=== PATIENT | male | born 1935 | race Caucasian/White ===

== ENCOUNTER 2019-07-08 01:46 | Inpatient (IN) | payer BC, MEDICARE ==
[~2019-07-08] VITALS: Ht 170.2 cm; Wt 59.0 kg
[2019-07-08] MEDS ORDERED: DRON2.5C PO (02:04)
[2019-07-08] MEDS ORDERED: ONDA8TAB6 PO (02:04)
[2019-07-08] MEDS ORDERED: PANT40TA2 PO (02:04)
[2019-07-08] MEDS ORDERED: AMIO100T4 PO (02:04)
[2019-07-08] MEDS ORDERED: TAMS-3 PO (02:04)
[2019-07-08] MEDS ORDERED: SUCR1TAB31 PO (02:04)
[2019-07-08] MEDS ORDERED: [UNRECOGNIZED DRUG - CODE] PO (02:04)
[2019-07-08] MEDS ORDERED: CARV6.25 PO (02:04)
[2019-07-08] MEDS ORDERED: ASCO500C16 PO (02:04)
[2019-07-08] MEDS ORDERED: LEVE500T9 PO (02:04)
[2019-07-08] MEDS ORDERED: ROSU5TAB PO (02:04)
[2019-07-08] MEDS ORDERED: DEXA1TAB2 PO (02:04)
[2019-07-08 02:19] LABS: BASOPHILS % (AUTO) 0.7 % (0.0-2.0); EOSINOPHILS # (AUTO) 0.3 K/uL (0.0-0.7); EOSINOPHILS % (AUTO) 4.5 % (0.0-7.0); HEMATOCRIT 36.6 % (36.7-47.1); HEMOGLOBIN 12.3 g/dL (12.5-16.3); LYMPHOCYTES # (AUTO) 0.5 K/uL (20.0-40.0); LYMPHOCYTES % (AUTO) 7.1 % (20.5-51.5); MEAN CORPUSCULAR HEMOGLOBIN 34.2 uug (23.8-33.4); MEAN CORPUSCULAR HGB CONC 34 g/dL (32.5-36.3); MEAN CORPUSCULAR VOLUME 101.4 fL (73.0-96.2); MONOCYTES # (AUTO) 0.7 K/uL (2.0-10.0); MONOCYTES % (AUTO) 9.8 % (0.0-11.0); NEUTROPHILS # (AUTO) 5.2 K/uL (1.8-8.9); NEUTROPHILS % (AUTO) 77.9 % (38.5-71.5); PLATELET COUNT (AUTO) 139 K/uL (152-348); RED BLOOD CELL COUNT(AUTO) 3.61 MIL/uL (4.06-5.63); WHITE BLOOD COUNT (AUTO) 6.7 K/uL (3.6-10.2)
[2019-07-08 02:28] LABS: CREATININE 1.1 mg/dL (0.6-1.3); POTASSIUM 3.5 mmol/L (3.5-5.1)
[2019-07-08 02:39] LABS: BILIRUBIN,DIRECT 0.2 mg/dL (0.0-0.2); BILIRUBIN,TOTAL 0.8 mg/dL (0.2-1.0); TOTAL PROTEIN, SERUM 5.2 g/dL (6.4-8.2)
[2019-07-08] MEDS ORDERED: IV NS 1000 ML 1,000 ML IV PRN (03:07)
[2019-07-08] MEDS ORDERED: ACETAMINOPHEN 325 MG TABLET PO PRN (03:15)
[2019-07-08] MEDS ORDERED: Z GUARD REMEDY PASTE 57 GM TUBE TOP PRN (03:15)
[2019-07-08] MEDS ORDERED: MAGNESIUM HYDROXIDE 30 ML LIQUID UDC PO PRN (03:15)
[2019-07-08] MEDS ORDERED: ONDANSETRON 4 MG/2 ML VIAL IV PRN (03:15)
[2019-07-08] MEDS ORDERED: HYDROCODONE/APAP 5-325MG TABLET PO PRN (03:15)
[2019-07-08] MEDS ORDERED: FUROSEMIDE 40 MG/4 ML VIAL IV ONE (03:45)
[2019-07-08] MEDS ORDERED: FUROSEMIDE 40 MG/4 ML VIAL ONE (04:10)
[2019-07-08] MEDS ORDERED: LEVOFLOXACIN 500 MG/D5W 100ML PIGGYBACK IV STA (04:18)
[2019-07-08] MEDS ORDERED: LEVOFLOXACIN 500 MG/D5W 100 ML ONE (04:21)
[2019-07-08 06:31] VITALS: BP 103/53
[2019-07-08] MEDS ORDERED: [UNRECOGNIZED DRUG - OTHER] PO SCH (09:00)
[2019-07-08] MEDS ORDERED: CARVEDILOL 6.25 MG TABLET PO SCH (09:00)
[2019-07-08] MEDS: CARVEDILOL 6.25 MG TABLET PO SCH ×2 (09:21→18:00)
[2019-07-08] MEDS: PANTOPRAZOLE SODIUM 40 MG TABLET.DR PO SCH (09:21)
[2019-07-08] MEDS: AMIODARONE HCL 200 MG TABLET PO SCH (09:22)
[2019-07-08] MEDS: DRONABINOL 2.5 MG CAPSULE PO SCH ×2 (09:23→18:00)
[2019-07-08] MEDS: LEVETIRACETAM 500 MG TABLET PO SCH ×2 (09:24→20:22)
[2019-07-08] MEDS: DEXAMETHASONE 1 MG TABLET PO SCH (09:24)
[2019-07-08] MEDS ORDERED: IPRATROPIUM BROMIDE 0.5 MG/2.5 ML NEBU NEB PRN (11:15)
[2019-07-08] MEDS ORDERED: ALBUTEROL SULFATE 1.25 MG/3 ML NEBU NEB PRN (11:15)
[2019-07-08] MEDS: GUAIFENESIN LA 600 MG TABLET.SA PO SCH ×2 (11:25→22:27)
[2019-07-08 11:36] VITALS: BP 95/57
[2019-07-08] MEDS: ALBUTEROL SULFATE 1.25 MG/3 ML NEBU NEB SCH ×3 (11:40→20:26)
[2019-07-08] MEDS: IPRATROPIUM BROMIDE 0.5 MG/2.5 ML NEBU NEB SCH ×3 (11:40→20:26)
[2019-07-08] MEDS: ACETYLCYSTEINE 10% 4ML VIAL NEB SCH ×2 (11:40→20:27)
[2019-07-08 16:00] VITALS: BP 95/57
[2019-07-08] MEDS: ATORVASTATIN 10 MG TABLET PO SCH (20:22)
[2019-07-08] MEDS: SUCRALFATE 1 G TABLET PO SCH (20:22)
[2019-07-08] MEDS: TAMSULOSIN HCL 0.4 MG CAP.SR.24H PO SCH (20:22)
[2019-07-08] MEDS: GUAIFENESIN/DEXTROMETHORPHAN 5 ML UDC PO PRN (20:22)
[2019-07-08 20:44] VITALS: BP 107/57
[2019-07-09 00:42] VITALS: BP 97/55
[2019-07-09] MEDS: GUAIFENESIN/DEXTROMETHORPHAN 5 ML UDC PO PRN (03:29)
[2019-07-09] MEDS ORDERED: LEVOFLOXACIN 750MG/D5W 750 MG in PREMIXED 1 EACH IV SCH (04:00)
[2019-07-09 05:21] VITALS: BP 103/58
[2019-07-09] MEDS: PANTOPRAZOLE SODIUM 40 MG TABLET.DR PO SCH (06:30)
[2019-07-09 06:38] LABS: BASOPHILS % (AUTO) 0.4 % (0.0-2.0); EOSINOPHILS # (AUTO) 0.3 K/uL (0.0-0.7); EOSINOPHILS % (AUTO) 3.9 % (0.0-7.0); HEMATOCRIT 35.2 % (36.7-47.1); LYMPHOCYTES # (AUTO) 0.5 K/uL (20.0-40.0); LYMPHOCYTES % (AUTO) 7.2 % (20.5-51.5); MEAN CORPUSCULAR HGB CONC 34 g/dL (32.5-36.3); MEAN CORPUSCULAR VOLUME 102.8 fL (73.0-96.2); MONOCYTES # (AUTO) 0.8 K/uL (2.0-10.0); NEUTROPHILS # (AUTO) 5.3 K/uL (1.8-8.9); NEUTROPHILS % (AUTO) 77.5 % (38.5-71.5); PLATELET COUNT (AUTO) 138 K/uL (152-348); RED BLOOD CELL COUNT(AUTO) 3.42 MIL/uL (4.06-5.63); WHITE BLOOD COUNT (AUTO) 6.9 K/uL (3.6-10.2)
[2019-07-09 07:00] LABS: BILIRUBIN,TOTAL 0.7 mg/dL (0.2-1.0); MAGNESIUM 1.9 mg/dL (1.8-2.4); PHOSPHOROUS 4.8 mg/dL (2.5-4.9); POTASSIUM 3.3 mmol/L (3.5-5.1); TOTAL PROTEIN, SERUM 5.4 g/dL (6.4-8.2)
[2019-07-09] MEDS: IPRATROPIUM BROMIDE 0.5 MG/2.5 ML NEBU NEB SCH ×4 (08:07→22:31)
[2019-07-09] MEDS: ACETYLCYSTEINE 10% 4ML VIAL NEB SCH ×3 (08:07→22:31)
[2019-07-09] MEDS: ALBUTEROL SULFATE 1.25 MG/3 ML NEBU NEB SCH ×4 (08:07→22:31)
[2019-07-09] MEDS: DRONABINOL 2.5 MG CAPSULE PO SCH ×2 (08:27→16:56)
[2019-07-09] MEDS: DEXAMETHASONE 1 MG TABLET PO SCH (08:27)
[2019-07-09] MEDS: AMIODARONE HCL 200 MG TABLET PO SCH (08:28)
[2019-07-09] MEDS: LEVETIRACETAM 500 MG TABLET PO SCH ×2 (08:28→20:16)
[2019-07-09] MEDS: GUAIFENESIN LA 600 MG TABLET.SA PO SCH ×2 (08:29→20:16)
[2019-07-09] MEDS: CARVEDILOL 6.25 MG TABLET PO SCH ×2 (08:29→17:01)
[2019-07-09] MEDS ORDERED: POTASSIUM CHLORIDE 20 MEQ TAB.PRT.SR PO ONE (10:15)
[2019-07-09] MEDS ORDERED: methylPREDNISolone SOD SUCC 125 MG/2 ML VIAL IV ONE (11:00)
[2019-07-09 11:10] VITALS: BP 112/61
[2019-07-09] MEDS: GUAIFENESIN/CODEINE 5 ML LIQUID UDC PO PRN (11:41)
[2019-07-09] MEDS: methylPREDNISolone SOD SUCC 40 MG/ML VIAL IV SCH ×2 (13:28→21:44)
[2019-07-09 15:06] VITALS: BP 112/69
[2019-07-09] MEDS: MIRALAX 17 GM POWD.PACK PO SCH (16:54)
[2019-07-09] MEDS: DOCUSATE SODIUM 100 MG CAPSULE PO SCH ×2 (16:54→20:16)
[2019-07-09] MEDS: TAMSULOSIN HCL 0.4 MG CAP.SR.24H PO SCH (20:16)
[2019-07-09] MEDS: ATORVASTATIN 10 MG TABLET PO SCH (20:16)
[2019-07-09] MEDS: SUCRALFATE 1 G TABLET PO SCH (20:17)
[2019-07-09 20:41] VITALS: BP 111/56
[2019-07-10 00:36] VITALS: BP 129/66
[2019-07-10] MEDS: methylPREDNISolone SOD SUCC 40 MG/ML VIAL IV SCH ×2 (05:29→21:19)
[2019-07-10 05:41] VITALS: BP 102/49
[2019-07-10 06:38] LABS: CREATININE 0.8 mg/dL (0.6-1.3); MAGNESIUM 1.9 mg/dL (1.8-2.4); PHOSPHOROUS 4.1 mg/dL (2.5-4.9); POTASSIUM 4.1 mmol/L (3.5-5.1)
[2019-07-10 07:30] LABS: BASOPHILS % (AUTO) 0.1 % (0.0-2.0); HEMATOCRIT 37.6 % (36.7-47.1); HEMOGLOBIN 12.6 g/dL (12.5-16.3); LYMPHOCYTES # (AUTO) 0.3 K/uL (20.0-40.0); LYMPHOCYTES % (AUTO) 3.8 % (20.5-51.5); MEAN CORPUSCULAR HEMOGLOBIN 34.4 uug (23.8-33.4); MEAN CORPUSCULAR HGB CONC 33 g/dL (32.5-36.3); MONOCYTES # (AUTO) 0.4 K/uL (2.0-10.0); MONOCYTES % (AUTO) 4.2 % (0.0-11.0); NEUTROPHILS # (AUTO) 7.9 K/uL (1.8-8.9); NEUTROPHILS % (AUTO) 91.9 % (38.5-71.5); PLATELET COUNT (AUTO) 171 K/uL (152-348); RED BLOOD CELL COUNT(AUTO) 3.65 MIL/uL (4.06-5.63); WHITE BLOOD COUNT (AUTO) 8.6 K/uL (3.6-10.2)
[2019-07-10] MEDS: IPRATROPIUM BROMIDE 0.5 MG/2.5 ML NEBU NEB SCH ×4 (07:44→19:20)
[2019-07-10] MEDS: ALBUTEROL SULFATE 1.25 MG/3 ML NEBU NEB SCH ×4 (07:44→19:20)
[2019-07-10] MEDS: ACETYLCYSTEINE 10% 4ML VIAL NEB SCH ×3 (07:51→19:20)
[2019-07-10] MEDS: LEVETIRACETAM 500 MG TABLET PO SCH ×2 (08:43→22:00)
[2019-07-10] MEDS: PANTOPRAZOLE SODIUM 40 MG TABLET.DR PO SCH (08:43)
[2019-07-10] MEDS: DRONABINOL 2.5 MG CAPSULE PO SCH ×2 (08:43→17:47)
[2019-07-10] MEDS: DEXAMETHASONE 1 MG TABLET PO SCH (08:43)
[2019-07-10] MEDS: AMIODARONE HCL 200 MG TABLET PO SCH (08:44)
[2019-07-10] MEDS: GUAIFENESIN LA 600 MG TABLET.SA PO SCH ×2 (08:44→22:00)
[2019-07-10] MEDS: MIRALAX 17 GM POWD.PACK PO SCH ×2 (08:44→09:00)
[2019-07-10] MEDS: DOCUSATE SODIUM 100 MG CAPSULE PO SCH ×2 (08:44→22:00)
[2019-07-10] MEDS: CARVEDILOL 6.25 MG TABLET PO SCH ×2 (08:45→17:48)
[2019-07-10] MEDS ORDERED: LEVOFLOXACIN 750MG/D5W 750 MG in PREMIXED 1 EACH IV SCH (09:00)
[2019-07-10] MEDS ORDERED: IV NORMAL SALINE 500 ML IV ONE (11:15)
[2019-07-10 11:55] VITALS: BP 111/51
[2019-07-10] MEDS: IV D5/ 0.9% NACL 1,000 ML IV PRN (13:42)
[2019-07-10] MEDS: CEFEPIME HCL 1 G in IV DEXTROSE 5% 50 ML IV SCH ×3 (13:42→21:20)
[2019-07-10] MEDS: GUAIFENESIN/CODEINE 5 ML LIQUID UDC PO PRN (14:24)
[2019-07-10 16:16] VITALS: BP 109/56
[2019-07-10 20:25] VITALS: BP 110/58
[2019-07-10] MEDS ORDERED: BENZOCAINE/MENTH/CETYLPYRD LOZENGE MM PRN (20:45)
[2019-07-10] MEDS ORDERED: CLOTRIMAZOLE 10 MG TROCHE MM SCH (21:00)
[2019-07-10 21:21] LABS: *BILIRUBIN,URIN NEGATIVE (NEGATIVE); *BLOOD, URINE NEGATIVE (NEGATIVE); *CLARITY,URINE CLEAR (CLEAR); *COLOR,URINE YELLOW (YELLOW); *KETONES,URINE NEGATIVE (NEGATIVE); *UROBILINOGEN,URINE 0.2 E.U./dl (NORMAL); LEUKOCYTE ESTERASE ,URINE NEGATIVE (NEGATIVE); NITRITE, URINE NEGATIVE (NEGATIVE); UGLUCOSE NEGATIVE (NEGATIVE)
[2019-07-10] MEDS: SUCRALFATE 1 G TABLET PO SCH (22:00)
[2019-07-10] MEDS: TAMSULOSIN HCL 0.4 MG CAP.SR.24H PO SCH (22:00)
[2019-07-10] MEDS: CHLORHEXIDINE GLUCONATE 15 ML MOUTHWASH MM SCH (22:00)
[2019-07-10] MEDS: ATORVASTATIN 10 MG TABLET PO SCH (22:00)
[2019-07-11] MEDS: CEFEPIME HCL 1 G in IV DEXTROSE 5% 50 ML IV SCH ×3 (05:14→22:12)
[2019-07-11] MEDS: PANTOPRAZOLE SODIUM 40 MG TABLET.DR PO SCH (06:16)
[2019-07-11] MEDS: ACETYLCYSTEINE 10% 4ML VIAL NEB SCH ×3 (07:22→19:25)
[2019-07-11] MEDS: IPRATROPIUM BROMIDE 0.5 MG/2.5 ML NEBU NEB SCH ×4 (07:22→19:25)
[2019-07-11] MEDS: ALBUTEROL SULFATE 1.25 MG/3 ML NEBU NEB SCH ×4 (07:22→19:25)
[2019-07-11 08:01] LABS: HEMATOCRIT 36.2 % (36.7-47.1); HEMOGLOBIN 12.3 g/dL (12.5-16.3); LYMPHOCYTES # (AUTO) 0.3 K/uL (20.0-40.0); MEAN CORPUSCULAR HEMOGLOBIN 34.9 uug (23.8-33.4); MEAN CORPUSCULAR HGB CONC 34 g/dL (32.5-36.3); MEAN CORPUSCULAR VOLUME 103.1 fL (73.0-96.2); MONOCYTES # (AUTO) 0.5 K/uL (2.0-10.0); MONOCYTES % (AUTO) 6.6 % (0.0-11.0); NEUTROPHILS # (AUTO) 7.1 K/uL (1.8-8.9); NEUTROPHILS % (AUTO) 89.4 % (38.5-71.5); PLATELET COUNT (AUTO) 170 K/uL (152-348); RED BLOOD CELL COUNT(AUTO) 3.51 MIL/uL (4.06-5.63)
[2019-07-11 08:07] LABS: CARBON DIOXIDE 24 mmol/L (21-32); CHLORIDE 106 mmol/L (98-107); CREATININE 0.7 mg/dL (0.6-1.3); GLUCOSE 151 mg/dL (74-106); PHOSPHOROUS 3.7 mg/dL (2.5-4.9); UREA NITROGEN, BLOOD 14 mg/dL (7-18)
[2019-07-11] MEDS ORDERED: LEVOFLOXACIN 750MG/D5W 750 MG in PREMIXED 1 EACH IV SCH (09:00)
[2019-07-11] MEDS: IV D5/ 0.9% NACL 1,000 ML IV PRN (10:48)
[2019-07-11] MEDS: LEVETIRACETAM 500 MG TABLET PO SCH ×2 (10:48→21:09)
[2019-07-11] MEDS: GUAIFENESIN LA 600 MG TABLET.SA PO SCH ×2 (10:49→21:09)
[2019-07-11] MEDS: CHLORHEXIDINE GLUCONATE 15 ML MOUTHWASH MM SCH ×2 (10:49→21:10)
[2019-07-11] MEDS: methylPREDNISolone SOD SUCC 40 MG/ML VIAL IV SCH ×2 (10:49→21:09)
[2019-07-11] MEDS: AMIODARONE HCL 200 MG TABLET PO SCH (10:49)
[2019-07-11] MEDS: DOCUSATE SODIUM 100 MG CAPSULE PO SCH ×2 (10:49→21:09)
[2019-07-11] MEDS: DRONABINOL 2.5 MG CAPSULE PO SCH ×2 (10:50→17:49)
[2019-07-11] MEDS: MIRALAX 17 GM POWD.PACK PO SCH (10:50)
[2019-07-11] MEDS: CARVEDILOL 6.25 MG TABLET PO SCH ×2 (10:51→17:52)
[2019-07-11 11:42] VITALS: BP 110/67
[2019-07-11] MEDS: GUAIFENESIN/CODEINE 5 ML LIQUID UDC PO PRN (12:17)
[2019-07-11] MEDS ORDERED: BISACODYL 10 MG SUPP.RECT RC PRN (15:00)
[2019-07-11] MEDS ORDERED: BISACODYL 5 MG TABLET.DR PO PRN (15:00)
[2019-07-11] MEDS ORDERED: LIDOCAINE HCL 1% 20 ML VIAL IJ PRN (15:15)
[2019-07-11 16:10] VITALS: BP 120/59
[2019-07-11] MEDS: CLOTRIMAZOLE 10 MG TROCHE MM SCH ×2 (17:51→21:26)
[2019-07-11] MEDS: SUCRALFATE 1 G TABLET PO SCH (19:01)
[2019-07-11 20:00] VITALS: BP 138/72
[2019-07-11] MEDS: ATORVASTATIN 10 MG TABLET PO SCH (21:09)
[2019-07-11] MEDS: TAMSULOSIN HCL 0.4 MG CAP.SR.24H PO SCH (21:09)
[2019-07-12 04:00] VITALS: BP 111/57
[2019-07-12] MEDS: IV D5/ 0.9% NACL 1,000 ML IV PRN (04:34)
[2019-07-12] MEDS: CEFEPIME HCL 1 G in IV DEXTROSE 5% 50 ML IV SCH ×3 (05:20→21:09)
[2019-07-12] MEDS: PANTOPRAZOLE SODIUM 40 MG TABLET.DR PO SCH (06:36)
[2019-07-12 06:42] LABS: BASOPHILS % (AUTO) 0.1 % (0.0-2.0); HEMATOCRIT 36.7 % (36.7-47.1); HEMOGLOBIN 12.3 g/dL (12.5-16.3); LYMPHOCYTES # (AUTO) 0.3 K/uL (20.0-40.0); LYMPHOCYTES % (AUTO) 3.7 % (20.5-51.5); MEAN CORPUSCULAR HEMOGLOBIN 34.4 uug (23.8-33.4); MEAN CORPUSCULAR HGB CONC 34 g/dL (32.5-36.3); MEAN CORPUSCULAR VOLUME 102.5 fL (73.0-96.2); MONOCYTES # (AUTO) 0.4 K/uL (2.0-10.0); MONOCYTES % (AUTO) 5.4 % (0.0-11.0); NEUTROPHILS # (AUTO) 6.7 K/uL (1.8-8.9); NEUTROPHILS % (AUTO) 90.8 % (38.5-71.5); PLATELET COUNT (AUTO) 183 K/uL (152-348); RED BLOOD CELL COUNT(AUTO) 3.58 MIL/uL (4.06-5.63); WHITE BLOOD COUNT (AUTO) 7.4 K/uL (3.6-10.2)
[2019-07-12 07:03] LABS: CREATININE 0.7 mg/dL (0.6-1.3); MAGNESIUM 2.1 mg/dL (1.8-2.4); PHOSPHOROUS 3.7 mg/dL (2.5-4.9); POTASSIUM 3.4 mmol/L (3.5-5.1)
[2019-07-12] MEDS: IPRATROPIUM BROMIDE 0.5 MG/2.5 ML NEBU NEB SCH ×4 (07:31→21:35)
[2019-07-12] MEDS: ALBUTEROL SULFATE 1.25 MG/3 ML NEBU NEB SCH ×4 (07:31→21:36)
[2019-07-12] MEDS: ACETYLCYSTEINE 10% 4ML VIAL NEB SCH ×3 (07:32→21:36)
[2019-07-12] MEDS: CARVEDILOL 6.25 MG TABLET PO SCH ×2 (08:34→17:42)
[2019-07-12] MEDS: CHLORHEXIDINE GLUCONATE 15 ML MOUTHWASH MM SCH ×2 (09:37→20:31)
[2019-07-12] MEDS: DOCUSATE SODIUM 100 MG CAPSULE PO SCH ×2 (09:38→20:31)
[2019-07-12] MEDS: DRONABINOL 2.5 MG CAPSULE PO SCH ×2 (09:38→17:35)
[2019-07-12] MEDS: MIRALAX 17 GM POWD.PACK PO SCH (09:38)
[2019-07-12] MEDS: GUAIFENESIN LA 600 MG TABLET.SA PO SCH ×2 (09:38→20:31)
[2019-07-12] MEDS: LEVETIRACETAM 500 MG TABLET PO SCH ×2 (09:38→20:31)
[2019-07-12] MEDS: CLOTRIMAZOLE 10 MG TROCHE MM SCH ×4 (09:38→20:31)
[2019-07-12] MEDS: methylPREDNISolone SOD SUCC 40 MG/ML VIAL IV SCH (09:39)
[2019-07-12] MEDS: AMIODARONE HCL 200 MG TABLET PO SCH (09:47)
[2019-07-12] MEDS ORDERED: POTASSIUM CHLORIDE 50 ML IV SCH (10:45)
[2019-07-12 12:12] VITALS: BP 105/57
[2019-07-12 16:11] VITALS: BP 114/72
[2019-07-12] MEDS ORDERED: BISACODYL 10 MG SUPP.RECT RC PRN (17:00)
[2019-07-12] MEDS: ATORVASTATIN 10 MG TABLET PO SCH (20:31)
[2019-07-12] MEDS: TAMSULOSIN HCL 0.4 MG CAP.SR.24H PO SCH (20:31)
[2019-07-12] MEDS: SUCRALFATE 1 G TABLET PO SCH (20:31)
[2019-07-12 20:32] VITALS: BP 108/65
[2019-07-13 00:48] VITALS: BP 118/53
[2019-07-13] MEDS: CEFEPIME HCL 1 G in IV DEXTROSE 5% 50 ML IV SCH ×2 (05:02→14:25)
[2019-07-13 05:39] VITALS: BP 122/56
[2019-07-13] MEDS: PANTOPRAZOLE SODIUM 40 MG TABLET.DR PO SCH (06:31)
[2019-07-13 06:32] LABS: BASOPHILS % (AUTO) 0.1 % (0.0-2.0); EOSINOPHILS % (AUTO) 0.5 % (0.0-7.0); HEMATOCRIT 35.8 % (36.7-47.1); LYMPHOCYTES # (AUTO) 0.4 K/uL (20.0-40.0); LYMPHOCYTES % (AUTO) 5.8 % (20.5-51.5); MEAN CORPUSCULAR HEMOGLOBIN 34.8 uug (23.8-33.4); MEAN CORPUSCULAR HGB CONC 34 g/dL (32.5-36.3); MEAN CORPUSCULAR VOLUME 103.4 fL (73.0-96.2); MONOCYTES # (AUTO) 0.7 K/uL (2.0-10.0); MONOCYTES % (AUTO) 10.1 % (0.0-11.0); NEUTROPHILS % (AUTO) 83.5 % (38.5-71.5); PLATELET COUNT (AUTO) 164 K/uL (152-348); RED BLOOD CELL COUNT(AUTO) 3.46 MIL/uL (4.06-5.63); WHITE BLOOD COUNT (AUTO) 7.2 K/uL (3.6-10.2)
[2019-07-13 06:36] LABS: CREATININE 0.7 mg/dL (0.6-1.3); MAGNESIUM 2.3 mg/dL (1.8-2.4); PHOSPHOROUS 3.1 mg/dL (2.5-4.9); POTASSIUM 3.6 mmol/L (3.5-5.1)
[2019-07-13] MEDS: GUAIFENESIN LA 600 MG TABLET.SA PO SCH (08:16)
[2019-07-13] MEDS: LEVETIRACETAM 500 MG TABLET PO SCH (08:16)
[2019-07-13] MEDS: CARVEDILOL 6.25 MG TABLET PO SCH ×2 (08:16→17:05)
[2019-07-13] MEDS: DOCUSATE SODIUM 100 MG CAPSULE PO SCH (08:17)
[2019-07-13] MEDS: CLOTRIMAZOLE 10 MG TROCHE MM SCH ×3 (08:17→17:06)
[2019-07-13] MEDS: DRONABINOL 2.5 MG CAPSULE PO SCH ×2 (08:17→17:06)
[2019-07-13] MEDS: MIRALAX 17 GM POWD.PACK PO SCH (08:18)
[2019-07-13] MEDS: AMIODARONE HCL 200 MG TABLET PO SCH (08:18)
[2019-07-13] MEDS: CHLORHEXIDINE GLUCONATE 15 ML MOUTHWASH MM SCH (08:18)
[2019-07-13] MEDS: IPRATROPIUM BROMIDE 0.5 MG/2.5 ML NEBU NEB SCH ×3 (08:33→15:12)
[2019-07-13] MEDS: ALBUTEROL SULFATE 1.25 MG/3 ML NEBU NEB SCH ×3 (08:33→15:12)
[2019-07-13] MEDS: ACETYLCYSTEINE 10% 4ML VIAL NEB SCH ×2 (08:33→15:12)
[2019-07-13] MEDS ORDERED: methylPREDNISolone SOD SUCC 40 MG/ML VIAL IV SCH (09:00)
[2019-07-13 11:31] VITALS: BP 122/72
[2019-07-13] MEDS ORDERED: BISA5TAB13 PO (13:11)
[2019-07-13] MEDS ORDERED: ACET100V5 NEB (13:11)
[2019-07-13] MEDS ORDERED: Benzocaine/Menth/Cetylpyrd Cl MM (13:11)
[2019-07-13] MEDS ORDERED: ALBU1.25 NEB (13:11)
[2019-07-13] MEDS ORDERED: ACET325T53 PO (13:11)
[2019-07-13] MEDS ORDERED: AMIO200T6 PO (13:11)
[2019-07-13] MEDS ORDERED: DOCU100C36 PO (13:12)
[2019-07-13] MEDS ORDERED: METH4TAB3 PO (13:12)
[2019-07-13] MEDS ORDERED: CHLO473M7 MM (13:12)
[2019-07-13] MEDS ORDERED: GUAI600T53 PO (13:12)
[2019-07-13] MEDS ORDERED: MAGN400O6 PO (13:12)
[2019-07-13] MEDS ORDERED: IPRA0.2S6 NEB ×2 (13:12)
[2019-07-13] MEDS ORDERED: POLY17PO4 PO (13:12)
[2019-07-13] MEDS ORDERED: CEFE1PIG3 IV (13:12)
[2019-07-13] MEDS ORDERED: GUAI5SYR4 PO (13:12)
[2019-07-13] MEDS ORDERED: CARV6.252 PO (13:12)
[2019-07-13] MEDS ORDERED: HYDR-3972 PO (13:12)
[2019-07-13] MEDS ORDERED: BISA10SU12 RC (13:12)
[2019-07-13] MEDS ORDERED: MENT71OI TOP (13:12)
[2019-07-13] MEDS ORDERED: CLOT10TR6 MM (13:12)
[2019-07-13] MEDS: IV D5/ 0.9% NACL 1,000 ML IV PRN (15:26)
[2019-07-13 15:46] VITALS: BP 130/68
[2019-07-13 17:05] VITALS: BP 134/76
== END 2019-07-13 19:05 | DRG 193 ==
LOC: ER 01:48 → TELE3 04:55 → MEDSURG3 07-10 12:09
PROVIDERS: ADMIT Internal Medicine; ATTEND Nurse Practitioner Acute Care
PROC: 05HC33Z Insertion of Infusion Device into Left Basilic Vein, Percutaneous Approach (ICD-10-PCS; principal; 2019-07-11)
DX: J15.9 Unspecified bacterial pneumonia (principal); J96.01 Acute respiratory failure with hypoxia; I50.33 Acute on chronic diastolic (congestive) heart failure; J45.901 Unspecified asthma with (acute) exacerbation; C71.9 Malignant neoplasm of brain, unspecified; E44.0 Moderate protein-calorie malnutrition; J98.11 Atelectasis; J20.9 Acute bronchitis, unspecified; Z92.21 Personal history of antineoplastic chemotherapy; Z92.3 Personal history of irradiation; D69.6 Thrombocytopenia, unspecified; E78.5 Hyperlipidemia, unspecified; N40.0 Benign prostatic hyperplasia without lower urinary tract symptoms; H91.90 Unspecified hearing loss, unspecified ear; K21.9 Gastro-esophageal reflux disease without esophagitis; Z79.899 Other long term (current) drug therapy; K44.9 Diaphragmatic hernia without obstruction or gangrene; I70.0 Atherosclerosis of aorta; I08.0 Rheumatic disorders of both mitral and aortic valves; D63.8 Anemia in other chronic diseases classified elsewhere; R13.10 Dysphagia, unspecified
CPT/HCPCS: 36415; 70030-TC; 70490; 71045; 83605; 83735; 84100; 85025; 85730; 87400; 93005; 93307; 94640; A4663; G0378; J0692; J1940; J1956; J2920; J2930; J3480; J3490; J3590; J7030; J7040; J7042; J7050; J7060; J8540; Q0167

== ENCOUNTER 2019-07-13 19:51 | Inpatient (IN) | payer BC ==
[~2019-07-13] VITALS: Ht 165.1 cm; Wt 59.0 kg
[~2019-07-13 19:51] MED LIST: ACET100V5 NEB; ACET325T53 PO; ALBU1.25 NEB; AMIO100T4 PO; AMIO200T6 PO; ASCO500C16 PO; BISA10SU12 RC; BISA5TAB13 PO; Benzocaine/Menth/Cetylpyrd Cl MM; CARV6.25 PO; CARV6.252 PO; CEFE1PIG3 IV; CHLO473M7 MM; CLOT10TR6 MM; DEXA1TAB2 PO; DOCU100C36 PO; DRON2.5C PO; GUAI5SYR4 PO; GUAI600T53 PO; HYDR-3972 PO; IPRA0.2S6 NEB; LEVE500T9 PO; MAGN400O6 PO; MENT71OI TOP; METH4TAB3 PO; ONDA8TAB6 PO; PANT40TA2 PO; POLY17PO4 PO; ROSU5TAB PO; SUCR1TAB31 PO; TAMS-3 PO
[2019-07-13 20:00] VITALS: BP 117/63
[2019-07-13] MEDS ORDERED: Z GUARD REMEDY PASTE 57 GM TUBE TOP PRN ×2 (20:00→22:30)
[2019-07-13] MEDS ORDERED: BISACODYL 10 MG SUPP.RECT RC PRN (22:30)
[2019-07-13] MEDS ORDERED: MAGNESIUM HYDROXIDE 30 ML LIQUID UDC PO PRN (22:30)
[2019-07-13] MEDS ORDERED: BENZOCAINE/MENTH/CETYLPYRD LOZENGE MM PRN (22:30)
[2019-07-13] MEDS ORDERED: BISACODYL 5 MG TABLET.DR PO PRN (22:30)
[2019-07-13] MEDS ORDERED: methylPREDNISolone 1 PACK TAB.DS.PK [4MG TAB] PO SCH (22:30)
[2019-07-13] MEDS ORDERED: HYDROCODONE/APAP 5-325MG TABLET PO PRN (22:30)
[2019-07-13] MEDS ORDERED: ONDANSETRON HCL 4 MG TABLET PO PRN (22:30)
[2019-07-13] MEDS: ACETYLCYSTEINE 10% 4ML VIAL NEB SCH (22:34)
[2019-07-14] MEDS: ACETAMINOPHEN 325 MG TABLET PO PRN (00:42)
[2019-07-14 04:22] VITALS: BP 118/58
[2019-07-14 06:02] VITALS: BP 118/58
[2019-07-14 07:43] VITALS: BP 133/77
[2019-07-14] MEDS: ALBUTEROL SULFATE 1.25 MG/3 ML NEBU NEB PRN ×3 (07:49→23:01)
[2019-07-14] MEDS: ACETYLCYSTEINE 10% 4ML VIAL NEB SCH ×3 (07:49→23:01)
[2019-07-14] MEDS: IPRATROPIUM BROMIDE 0.5 MG/2.5 ML NEBU NEB PRN ×3 (07:49→23:01)
[2019-07-14] MEDS: CEFEPIME HCL 1 G in IV DEXTROSE 5% 50 ML IV SCH ×3 (08:41→21:02)
[2019-07-14] MEDS: CLOTRIMAZOLE 10 MG TROCHE MM SCH ×4 (08:42→20:04)
[2019-07-14] MEDS: CHLORHEXIDINE GLUCONATE 15 ML MOUTHWASH MM SCH ×2 (08:42→20:04)
[2019-07-14] MEDS: DOCUSATE SODIUM 100 MG CAPSULE PO SCH ×2 (08:43→20:04)
[2019-07-14] MEDS: AMIODARONE HCL 200 MG TABLET PO SCH (08:44)
[2019-07-14] MEDS: LEVETIRACETAM 500 MG TABLET PO SCH ×2 (08:45→17:09)
[2019-07-14] MEDS: GUAIFENESIN LA 600 MG TABLET.SA PO SCH ×2 (08:45→20:04)
[2019-07-14] MEDS: TAMSULOSIN HCL 0.4 MG CAP.SR.24H PO SCH (08:45)
[2019-07-14] MEDS: MIRALAX 17 GM POWD.PACK PO SCH (08:46)
[2019-07-14] MEDS ORDERED: CARVEDILOL 6.25 MG TABLET PO SCH (09:00)
[2019-07-14] MEDS ORDERED: methylPREDNISolone 4 MG TABLET (DAY#1) PO ONE (09:00)
[2019-07-14] MEDS ORDERED: DRONABINOL 2.5 MG CAPSULE PO SCH (09:00)
[2019-07-14] MEDS ORDERED: PANTOPRAZOLE SODIUM 40 MG TABLET.DR PO SCH (09:00)
[2019-07-14] MEDS: DRONABINOL 2.5 MG CAPSULE PO SCH ×2 (10:11→17:09)
[2019-07-14] MEDS ORDERED: methylPREDNISolone 4 MG TABLET (DAY#1 PC LUNCH) PO ONE (12:30)
[2019-07-14 15:50] VITALS: BP 105/66
[2019-07-14] MEDS: CARVEDILOL 6.25 MG TABLET PO SCH (17:10)
[2019-07-14] MEDS ORDERED: methylPREDNISolone 4 MG TABLET (DAY#1, PC DINNER) PO ONE (17:30)
[2019-07-14] MEDS: ATORVASTATIN 10 MG TABLET PO SCH (20:05)
[2019-07-14] MEDS: SUCRALFATE 1 G TABLET PO SCH (20:14)
[2019-07-14 20:38] VITALS: BP 104/63
[2019-07-14] MEDS ORDERED: methylPREDNISolone 4 MG TABLET (DAY#1, HS) PO ONE (21:00)
[2019-07-15 05:59] VITALS: BP 144/76
[2019-07-15] MEDS: CEFEPIME HCL 1 G in IV DEXTROSE 5% 50 ML IV SCH ×3 (06:08→21:30)
[2019-07-15] MEDS: PANTOPRAZOLE SODIUM 40 MG TABLET.DR PO SCH (06:30)
[2019-07-15] MEDS ORDERED: methylPREDNISolone 4 MG TABLET (DAY#2, ACB) PO ONE (07:30)
[2019-07-15 08:00] VITALS: BP 119/54
[2019-07-15] MEDS: IPRATROPIUM BROMIDE 0.5 MG/2.5 ML NEBU NEB PRN ×2 (08:42→16:02)
[2019-07-15] MEDS: ALBUTEROL SULFATE 1.25 MG/3 ML NEBU NEB PRN ×3 (08:42→22:32)
[2019-07-15] MEDS: ACETYLCYSTEINE 10% 4ML VIAL NEB SCH ×3 (08:42→22:32)
[2019-07-15] MEDS: TAMSULOSIN HCL 0.4 MG CAP.SR.24H PO SCH (08:46)
[2019-07-15] MEDS: DRONABINOL 2.5 MG CAPSULE PO SCH ×2 (08:46→16:36)
[2019-07-15] MEDS: DOCUSATE SODIUM 100 MG CAPSULE PO SCH ×2 (08:46→20:39)
[2019-07-15] MEDS: MIRALAX 17 GM POWD.PACK PO SCH (08:47)
[2019-07-15] MEDS: AMIODARONE HCL 200 MG TABLET PO SCH (08:47)
[2019-07-15] MEDS: GUAIFENESIN LA 600 MG TABLET.SA PO SCH ×2 (08:49→20:38)
[2019-07-15] MEDS: LEVETIRACETAM 500 MG TABLET PO SCH ×2 (08:54→16:37)
[2019-07-15] MEDS: CLOTRIMAZOLE 10 MG TROCHE MM SCH ×4 (08:55→20:39)
[2019-07-15] MEDS: CARVEDILOL 6.25 MG TABLET PO SCH ×2 (08:56→17:05)
[2019-07-15] MEDS: CHLORHEXIDINE GLUCONATE 15 ML MOUTHWASH MM SCH ×2 (08:56→20:38)
[2019-07-15] MEDS ORDERED: methylPREDNISolone 4 MG TABLET (DAY#2, PC LUNCH) PO ONE (12:30)
[2019-07-15 15:29] VITALS: BP 91/47
[2019-07-15] MEDS ORDERED: methylPREDNISolone 4 MG TABLET (DAY#2, PC DINNER) PO ONE (17:30)
[2019-07-15 19:36] VITALS: BP 95/47
[2019-07-15] MEDS: SUCRALFATE 1 G TABLET PO SCH (20:38)
[2019-07-15] MEDS: ATORVASTATIN 10 MG TABLET PO SCH (20:38)
[2019-07-15] MEDS ORDERED: methylPREDNISolone 4 MG TABLET (DAY#2, HS) PO ONE (21:00)
[2019-07-16 04:50] VITALS: BP 101/59
[2019-07-16] MEDS: CEFEPIME HCL 1 G in IV DEXTROSE 5% 50 ML IV SCH ×3 (06:08→21:27)
[2019-07-16] MEDS: PANTOPRAZOLE SODIUM 40 MG TABLET.DR PO SCH (06:32)
[2019-07-16] MEDS: ACETYLCYSTEINE 10% 4ML VIAL NEB SCH ×3 (07:17→22:49)
[2019-07-16] MEDS: ALBUTEROL SULFATE 1.25 MG/3 ML NEBU NEB PRN ×3 (07:17→22:49)
[2019-07-16] MEDS ORDERED: methylPREDNISolone 4 MG TABLET (DAY#3, ACB) PO ONE (07:30)
[2019-07-16 08:00] VITALS: BP 106/55
[2019-07-16] MEDS: CARVEDILOL 6.25 MG TABLET PO SCH ×2 (08:00→18:34)
[2019-07-16] MEDS: AMIODARONE HCL 200 MG TABLET PO SCH (09:00)
[2019-07-16] MEDS: DRONABINOL 2.5 MG CAPSULE PO SCH ×2 (09:57→18:33)
[2019-07-16] MEDS: MIRALAX 17 GM POWD.PACK PO SCH (09:58)
[2019-07-16] MEDS: GUAIFENESIN LA 600 MG TABLET.SA PO SCH ×2 (09:58→21:25)
[2019-07-16] MEDS: DOCUSATE SODIUM 100 MG CAPSULE PO SCH ×2 (09:59→21:26)
[2019-07-16] MEDS: CLOTRIMAZOLE 10 MG TROCHE MM SCH ×4 (09:59→21:24)
[2019-07-16] MEDS: CHLORHEXIDINE GLUCONATE 15 ML MOUTHWASH MM SCH ×2 (10:00→21:27)
[2019-07-16] MEDS: LEVETIRACETAM 500 MG TABLET PO SCH ×2 (10:00→18:33)
[2019-07-16] MEDS ORDERED: methylPREDNISolone 4 MG TABLET (DAY#3, PC LUNCH) PO ONE (12:30)
[2019-07-16 16:44] VITALS: BP 119/44
[2019-07-16] MEDS ORDERED: methylPREDNISolone 4 MG TABLET (DAY#3, PC DINNER) PO ONE (17:30)
[2019-07-16 20:07] VITALS: BP 104/66
[2019-07-16] MEDS ORDERED: methylPREDNISolone 4 MG TABLET (DAY#3, HS) PO ONE (21:00)
[2019-07-16] MEDS: ATORVASTATIN 10 MG TABLET PO SCH (21:25)
[2019-07-16] MEDS: SUCRALFATE 1 G TABLET PO SCH (21:25)
[2019-07-16] MEDS: TAMSULOSIN HCL 0.4 MG CAP.SR.24H PO SCH (21:25)
[2019-07-17 04:20] VITALS: BP 112/74
[2019-07-17] MEDS: CEFEPIME HCL 1 G in IV DEXTROSE 5% 50 ML IV SCH (06:55)
[2019-07-17] MEDS: PANTOPRAZOLE SODIUM 40 MG TABLET.DR PO SCH (06:55)
[2019-07-17] MEDS: ACETYLCYSTEINE 10% 4ML VIAL NEB SCH ×3 (07:07→22:37)
[2019-07-17] MEDS: ALBUTEROL SULFATE 1.25 MG/3 ML NEBU NEB PRN ×3 (07:07→22:38)
[2019-07-17] MEDS ORDERED: methylPREDNISolone 4 MG TABLET (DAY#4, ACB) PO ONE (07:30)
[2019-07-17 08:00] VITALS: BP_SYST 113; BP_SYST 158; BP_DIAS 60; BP_DIAS 87
[2019-07-17] MEDS: CARVEDILOL 6.25 MG TABLET PO SCH ×2 (08:00→18:00)
[2019-07-17] MEDS: DOCUSATE SODIUM 100 MG CAPSULE PO SCH ×2 (08:58→20:51)
[2019-07-17] MEDS: DRONABINOL 2.5 MG CAPSULE PO SCH ×2 (08:58→17:13)
[2019-07-17] MEDS: CHLORHEXIDINE GLUCONATE 15 ML MOUTHWASH MM SCH ×2 (08:58→20:51)
[2019-07-17] MEDS: LEVETIRACETAM 500 MG TABLET PO SCH ×2 (08:59→17:13)
[2019-07-17] MEDS: MIRALAX 17 GM POWD.PACK PO SCH (08:59)
[2019-07-17] MEDS: CLOTRIMAZOLE 10 MG TROCHE MM SCH ×4 (09:00→20:51)
[2019-07-17] MEDS: GUAIFENESIN LA 600 MG TABLET.SA PO SCH ×2 (09:00→20:53)
[2019-07-17] MEDS: AMIODARONE HCL 200 MG TABLET PO SCH (09:00)
[2019-07-17] MEDS ORDERED: methylPREDNISolone 4 MG TABLET (DAY#4, PC LUNCH) PO ONE (12:30)
[2019-07-17] MEDS: SUCRALFATE 1 G TABLET PO SCH (20:22)
[2019-07-17 20:48] VITALS: BP 103/62
[2019-07-17] MEDS: TAMSULOSIN HCL 0.4 MG CAP.SR.24H PO SCH (20:51)
[2019-07-17] MEDS: ATORVASTATIN 10 MG TABLET PO SCH (20:51)
[2019-07-17] MEDS ORDERED: methylPREDNISolone 4 MG TABLET (DAY#4, HS) PO ONE (21:00)
[2019-07-17] MEDS: IPRATROPIUM BROMIDE 0.5 MG/2.5 ML NEBU NEB PRN (22:38)
[2019-07-18 04:00] VITALS: BP 110/73
[2019-07-18] MEDS: PANTOPRAZOLE SODIUM 40 MG TABLET.DR PO SCH (06:34)
[2019-07-18] MEDS ORDERED: methylPREDNISolone 4 MG TABLET (DAY#5, ACB) PO ONE (07:30)
[2019-07-18 07:58] VITALS: BP 98/48
[2019-07-18] MEDS: CARVEDILOL 6.25 MG TABLET PO SCH ×2 (08:00→18:00)
[2019-07-18] MEDS: IPRATROPIUM BROMIDE 0.5 MG/2.5 ML NEBU NEB PRN (08:36)
[2019-07-18] MEDS: ACETYLCYSTEINE 10% 4ML VIAL NEB SCH ×3 (08:36→23:30)
[2019-07-18] MEDS: ALBUTEROL SULFATE 1.25 MG/3 ML NEBU NEB PRN ×2 (08:36→16:17)
[2019-07-18] MEDS: DOCUSATE SODIUM 100 MG CAPSULE PO SCH ×2 (09:41→20:52)
[2019-07-18] MEDS: DRONABINOL 2.5 MG CAPSULE PO SCH ×2 (09:42→18:20)
[2019-07-18] MEDS: CHLORHEXIDINE GLUCONATE 15 ML MOUTHWASH MM SCH ×2 (09:42→20:52)
[2019-07-18] MEDS: MIRALAX 17 GM POWD.PACK PO SCH (09:42)
[2019-07-18] MEDS: GUAIFENESIN LA 600 MG TABLET.SA PO SCH ×2 (09:43→20:54)
[2019-07-18] MEDS: LEVETIRACETAM 500 MG TABLET PO SCH ×2 (09:43→18:21)
[2019-07-18] MEDS: CLOTRIMAZOLE 10 MG TROCHE MM SCH ×4 (09:43→20:51)
[2019-07-18] MEDS: AMIODARONE HCL 200 MG TABLET PO SCH (09:46)
[2019-07-18 16:01] VITALS: BP 125/67
[2019-07-18] MEDS: SUCRALFATE 1 G TABLET PO SCH (20:51)
[2019-07-18] MEDS: ATORVASTATIN 10 MG TABLET PO SCH (20:53)
[2019-07-18] MEDS: TAMSULOSIN HCL 0.4 MG CAP.SR.24H PO SCH (20:53)
[2019-07-18] MEDS ORDERED: methylPREDNISolone 4 MG TABLET (DAY#5, HS) PO ONE (21:00)
[2019-07-18 21:26] VITALS: BP 109/66
[2019-07-19] MEDS: IPRATROPIUM BROMIDE 0.5 MG/2.5 ML NEBU NEB PRN ×3 (00:34→15:27)
[2019-07-19] MEDS: ALBUTEROL SULFATE 1.25 MG/3 ML NEBU NEB PRN ×3 (00:34→15:27)
[2019-07-19 06:21] VITALS: BP 130/67
[2019-07-19] MEDS: PANTOPRAZOLE SODIUM 40 MG TABLET.DR PO SCH (06:30)
[2019-07-19] MEDS: ACETYLCYSTEINE 10% 4ML VIAL NEB SCH (07:07)
[2019-07-19 07:29] LABS: BASOPHILS % (AUTO) 0.4 % (0.0-2.0); EOSINOPHILS % (AUTO) 0.4 % (0.0-7.0); HEMOGLOBIN 13.4 g/dL (12.5-16.3); LYMPHOCYTES # (AUTO) 0.3 K/uL (20.0-40.0); LYMPHOCYTES % (AUTO) 4.9 % (20.5-51.5); MEAN CORPUSCULAR HEMOGLOBIN 34.6 uug (23.8-33.4); MEAN CORPUSCULAR HGB CONC 33 g/dL (32.5-36.3); MEAN CORPUSCULAR VOLUME 103.6 fL (73.0-96.2); MONOCYTES # (AUTO) 0.7 K/uL (2.0-10.0); MONOCYTES % (AUTO) 10.2 % (0.0-11.0); NEUTROPHILS # (AUTO) 5.6 K/uL (1.8-8.9); NEUTROPHILS % (AUTO) 84.1 % (38.5-71.5); PLATELET COUNT (AUTO) 168 K/uL (152-348); RED BLOOD CELL COUNT(AUTO) 3.86 MIL/uL (4.06-5.63); WHITE BLOOD COUNT (AUTO) 6.7 K/uL (3.6-10.2)
[2019-07-19] MEDS ORDERED: methylPREDNISolone 4 MG TABLET (DAY#6, ACB) PO ONE (07:30)
[2019-07-19 07:49] LABS: BILIRUBIN,TOTAL 0.8 mg/dL (0.2-1.0); CREATININE 0.8 mg/dL (0.6-1.3); MAGNESIUM 2.3 mg/dL (1.8-2.4); POTASSIUM 3.8 mmol/L (3.5-5.1); TOTAL PROTEIN, SERUM 5.4 g/dL (6.4-8.2)
[2019-07-19 07:58] LABS: THYROID STIMULATING HORMONE 7.439 mIU/mL (0.358-3.740)
[2019-07-19 08:00] VITALS: BP 121/60
[2019-07-19] MEDS: DOCUSATE SODIUM 100 MG CAPSULE PO SCH ×2 (09:04→20:45)
[2019-07-19] MEDS: MIRALAX 17 GM POWD.PACK PO SCH (09:05)
[2019-07-19] MEDS: CARVEDILOL 6.25 MG TABLET PO SCH ×2 (09:05→17:41)
[2019-07-19] MEDS: AMIODARONE HCL 200 MG TABLET PO SCH (09:05)
[2019-07-19] MEDS: CLOTRIMAZOLE 10 MG TROCHE MM SCH ×4 (09:06→20:45)
[2019-07-19] MEDS: DRONABINOL 2.5 MG CAPSULE PO SCH ×2 (09:06→17:40)
[2019-07-19] MEDS: LEVETIRACETAM 500 MG TABLET PO SCH ×2 (09:06→17:40)
[2019-07-19] MEDS: GUAIFENESIN LA 600 MG TABLET.SA PO SCH ×2 (09:07→20:47)
[2019-07-19] MEDS: CHLORHEXIDINE GLUCONATE 15 ML MOUTHWASH MM SCH ×2 (09:10→20:45)
[2019-07-19 16:55] VITALS: BP 116/63
[2019-07-19] MEDS: GUAIFENESIN/CODEINE 5 ML LIQUID UDC PO PRN (17:43)
[2019-07-19 20:19] VITALS: BP 98/50
[2019-07-19] MEDS: ATORVASTATIN 10 MG TABLET PO SCH (20:45)
[2019-07-19] MEDS: TAMSULOSIN HCL 0.4 MG CAP.SR.24H PO SCH (20:45)
[2019-07-19] MEDS: SUCRALFATE 1 G TABLET PO SCH (20:48)
[2019-07-20] MEDS: GUAIFENESIN/CODEINE 5 ML LIQUID UDC PO PRN (00:35)
[2019-07-20 06:00] VITALS: BP 104/56
[2019-07-20] MEDS: PANTOPRAZOLE SODIUM 40 MG TABLET.DR PO SCH (06:36)
[2019-07-20 08:00] VITALS: BP 92/52
[2019-07-20] MEDS: CARVEDILOL 6.25 MG TABLET PO SCH ×2 (08:00→17:40)
[2019-07-20] MEDS: GUAIFENESIN LA 600 MG TABLET.SA PO SCH ×2 (08:43→20:25)
[2019-07-20] MEDS: LEVETIRACETAM 500 MG TABLET PO SCH ×2 (08:43→17:37)
[2019-07-20] MEDS: DRONABINOL 2.5 MG CAPSULE PO SCH ×2 (08:43→16:51)
[2019-07-20] MEDS: DOCUSATE SODIUM 100 MG CAPSULE PO SCH ×2 (08:44→20:25)
[2019-07-20] MEDS: AMIODARONE HCL 200 MG TABLET PO SCH (08:44)
[2019-07-20] MEDS: MIRALAX 17 GM POWD.PACK PO SCH (08:45)
[2019-07-20] MEDS: CLOTRIMAZOLE 10 MG TROCHE MM SCH ×4 (08:47→20:25)
[2019-07-20] MEDS: CHLORHEXIDINE GLUCONATE 15 ML MOUTHWASH MM SCH ×2 (08:48→20:25)
[2019-07-20 17:05] VITALS: BP 106/63
[2019-07-20] MEDS: METOCLOPRAMIDE HCL 5 MG TABLET PO SCH (17:37)
[2019-07-20] MEDS: TAMSULOSIN HCL 0.4 MG CAP.SR.24H PO SCH (20:25)
[2019-07-20] MEDS: ATORVASTATIN 10 MG TABLET PO SCH (20:25)
[2019-07-20] MEDS: SUCRALFATE 1 G TABLET PO SCH (20:25)
[2019-07-20 20:46] VITALS: BP 105/59
[2019-07-21 05:42] VITALS: BP 109/67
[2019-07-21] MEDS: PANTOPRAZOLE SODIUM 40 MG TABLET.DR PO SCH (06:34)
[2019-07-21 07:57] VITALS: BP 113/58
[2019-07-21] MEDS: MIRALAX 17 GM POWD.PACK PO SCH (09:00)
[2019-07-21] MEDS: DOCUSATE SODIUM 100 MG CAPSULE PO SCH ×2 (09:00→20:42)
[2019-07-21] MEDS: DRONABINOL 2.5 MG CAPSULE PO SCH (09:00)
[2019-07-21] MEDS: AMIODARONE HCL 200 MG TABLET PO SCH (09:00)
[2019-07-21] MEDS: LEVETIRACETAM 500 MG TABLET PO SCH ×2 (09:33→17:42)
[2019-07-21] MEDS: CARVEDILOL 6.25 MG TABLET PO SCH ×2 (09:33→17:42)
[2019-07-21] MEDS: GUAIFENESIN LA 600 MG TABLET.SA PO SCH ×2 (09:33→20:42)
[2019-07-21] MEDS: CLOTRIMAZOLE 10 MG TROCHE MM SCH ×4 (09:33→20:42)
[2019-07-21] MEDS: METOCLOPRAMIDE HCL 5 MG TABLET PO SCH ×2 (09:33→17:42)
[2019-07-21] MEDS: CHLORHEXIDINE GLUCONATE 15 ML MOUTHWASH MM SCH ×2 (09:34→20:42)
[2019-07-21 15:29] VITALS: BP 102/47
[2019-07-21] MEDS: TAMSULOSIN HCL 0.4 MG CAP.SR.24H PO SCH (20:42)
[2019-07-21] MEDS: ATORVASTATIN 10 MG TABLET PO SCH (20:42)
[2019-07-21 20:48] VITALS: BP 91/49
[2019-07-21] MEDS: SUCRALFATE 1 G TABLET PO SCH (20:48)
[2019-07-21] MEDS: [UNRECOGNIZED DRUG - OTHER] PO SCH (20:48)
[2019-07-22 05:41] VITALS: BP 110/55
[2019-07-22] MEDS: PANTOPRAZOLE SODIUM 40 MG TABLET.DR PO SCH (06:39)
[2019-07-22] MEDS: CARVEDILOL 6.25 MG TABLET PO SCH ×2 (08:00→16:43)
[2019-07-22] MEDS: CLOTRIMAZOLE 10 MG TROCHE MM SCH ×4 (08:17→20:12)
[2019-07-22] MEDS: DOCUSATE SODIUM 100 MG CAPSULE PO SCH ×2 (08:18→20:13)
[2019-07-22] MEDS: CHLORHEXIDINE GLUCONATE 15 ML MOUTHWASH MM SCH ×2 (08:18→20:12)
[2019-07-22] MEDS: LEVETIRACETAM 500 MG TABLET PO SCH ×2 (08:34→16:44)
[2019-07-22] MEDS: MIRALAX 17 GM POWD.PACK PO SCH (08:35)
[2019-07-22] MEDS: GUAIFENESIN LA 600 MG TABLET.SA PO SCH ×2 (08:38→20:13)
[2019-07-22] MEDS: METOCLOPRAMIDE HCL 5 MG TABLET PO SCH ×2 (08:39→16:45)
[2019-07-22] MEDS: AMIODARONE HCL 200 MG TABLET PO SCH (08:40)
[2019-07-22 08:41] VITALS: BP 90/39
[2019-07-22 17:06] VITALS: BP 100/37
[2019-07-22] MEDS: SUCRALFATE 1 G TABLET PO SCH (20:12)
[2019-07-22] MEDS: [UNRECOGNIZED DRUG - OTHER] PO SCH (20:13)
[2019-07-22] MEDS: ATORVASTATIN 10 MG TABLET PO SCH (20:13)
[2019-07-22] MEDS: TAMSULOSIN HCL 0.4 MG CAP.SR.24H PO SCH (20:13)
[2019-07-22 20:17] VITALS: BP 101/50
[2019-07-23 05:00] VITALS: BP 128/72
[2019-07-23] MEDS: PANTOPRAZOLE SODIUM 40 MG TABLET.DR PO SCH (06:38)
[2019-07-23] MEDS: CARVEDILOL 6.25 MG TABLET PO SCH ×2 (08:00→18:00)
[2019-07-23] MEDS: AMIODARONE HCL 200 MG TABLET PO SCH (09:00)
[2019-07-23 09:07] VITALS: BP 119/52
[2019-07-23] MEDS: MIRALAX 17 GM POWD.PACK PO SCH (10:52)
[2019-07-23] MEDS: CLOTRIMAZOLE 10 MG TROCHE MM SCH ×4 (10:53→20:43)
[2019-07-23] MEDS: DOCUSATE SODIUM 100 MG CAPSULE PO SCH ×2 (10:54→20:41)
[2019-07-23] MEDS: METOCLOPRAMIDE HCL 5 MG TABLET PO SCH ×2 (10:54→17:45)
[2019-07-23] MEDS: CHLORHEXIDINE GLUCONATE 15 ML MOUTHWASH MM SCH ×2 (10:55→20:43)
[2019-07-23] MEDS: GUAIFENESIN LA 600 MG TABLET.SA PO SCH ×2 (10:56→20:42)
[2019-07-23] MEDS: LEVETIRACETAM 500 MG TABLET PO SCH ×2 (11:15→17:44)
[2019-07-23 16:19] VITALS: BP 102/59
[2019-07-23 19:39] VITALS: BP 104/54
[2019-07-23] MEDS: ATORVASTATIN 10 MG TABLET PO SCH (20:41)
[2019-07-23] MEDS: TAMSULOSIN HCL 0.4 MG CAP.SR.24H PO SCH (20:41)
[2019-07-23] MEDS: SUCRALFATE 1 G TABLET PO SCH (20:42)
[2019-07-23] MEDS: [UNRECOGNIZED DRUG - OTHER] PO SCH (20:43)
[2019-07-24 04:48] VITALS: BP 109/54
[2019-07-24] MEDS: PANTOPRAZOLE SODIUM 40 MG TABLET.DR PO SCH (06:38)
[2019-07-24] MEDS: CARVEDILOL 6.25 MG TABLET PO SCH ×2 (08:00→18:00)
[2019-07-24 08:02] VITALS: BP 108/59
[2019-07-24] MEDS: AMIODARONE HCL 200 MG TABLET PO SCH (09:00)
[2019-07-24] MEDS: GUAIFENESIN LA 600 MG TABLET.SA PO SCH ×2 (10:54→20:01)
[2019-07-24] MEDS: CLOTRIMAZOLE 10 MG TROCHE MM SCH ×4 (10:55→20:01)
[2019-07-24] MEDS: METOCLOPRAMIDE HCL 5 MG TABLET PO SCH ×2 (10:55→17:50)
[2019-07-24] MEDS: LEVETIRACETAM 500 MG TABLET PO SCH ×2 (10:56→17:50)
[2019-07-24] MEDS: MIRALAX 17 GM POWD.PACK PO SCH (10:57)
[2019-07-24] MEDS: DOCUSATE SODIUM 100 MG CAPSULE PO SCH ×2 (10:58→20:00)
[2019-07-24] MEDS: CHLORHEXIDINE GLUCONATE 15 ML MOUTHWASH MM SCH ×2 (10:58→20:01)
[2019-07-24 16:29] VITALS: BP 105/42
[2019-07-24] MEDS: SUCRALFATE 1 G TABLET PO SCH (19:56)
[2019-07-24 20:00] VITALS: BP 107/58
[2019-07-24] MEDS: [UNRECOGNIZED DRUG - OTHER] PO SCH (20:00)
[2019-07-24] MEDS: ATORVASTATIN 10 MG TABLET PO SCH (20:00)
[2019-07-24] MEDS: TAMSULOSIN HCL 0.4 MG CAP.SR.24H PO SCH (20:01)
[2019-07-24] MEDS: IPRATROPIUM BROMIDE 0.5 MG/2.5 ML NEBU NEB PRN (21:17)
[2019-07-24] MEDS: ALBUTEROL SULFATE 1.25 MG/3 ML NEBU NEB PRN (21:17)
[2019-07-25 04:57] VITALS: BP 95/54
[2019-07-25] MEDS: PANTOPRAZOLE SODIUM 40 MG TABLET.DR PO SCH (06:53)
[2019-07-25 07:44] VITALS: BP 76/30
[2019-07-25] MEDS: CARVEDILOL 6.25 MG TABLET PO SCH ×2 (08:00→17:26)
[2019-07-25] MEDS: DOCUSATE SODIUM 100 MG CAPSULE PO SCH ×2 (08:34→20:53)
[2019-07-25] MEDS: METOCLOPRAMIDE HCL 5 MG TABLET PO SCH ×2 (08:35→16:43)
[2019-07-25] MEDS: CLOTRIMAZOLE 10 MG TROCHE MM SCH ×4 (08:35→20:53)
[2019-07-25] MEDS: AMIODARONE HCL 200 MG TABLET PO SCH (08:35)
[2019-07-25] MEDS: LEVETIRACETAM 500 MG TABLET PO SCH ×2 (08:35→16:43)
[2019-07-25] MEDS: GUAIFENESIN LA 600 MG TABLET.SA PO SCH ×2 (08:35→20:53)
[2019-07-25] MEDS: CHLORHEXIDINE GLUCONATE 15 ML MOUTHWASH MM SCH ×2 (08:36→20:52)
[2019-07-25] MEDS: MIRALAX 17 GM POWD.PACK PO SCH (08:37)
[2019-07-25 13:10] LABS: BASOPHILS % (AUTO) 0.8 % (0.0-2.0); EOSINOPHILS # (AUTO) 0.1 K/uL (0.0-0.7); EOSINOPHILS % (AUTO) 1.7 % (0.0-7.0); HEMATOCRIT 36.5 % (36.7-47.1); HEMOGLOBIN 12.4 g/dL (12.5-16.3); LYMPHOCYTES # (AUTO) 0.5 K/uL (20.0-40.0); MEAN CORPUSCULAR HEMOGLOBIN 34.9 uug (23.8-33.4); MEAN CORPUSCULAR HGB CONC 34 g/dL (32.5-36.3); MEAN CORPUSCULAR VOLUME 102.9 fL (73.0-96.2); MONOCYTES # (AUTO) 0.5 K/uL (2.0-10.0); NEUTROPHILS # (AUTO) 4.5 K/uL (1.8-8.9); NEUTROPHILS % (AUTO) 79.5 % (38.5-71.5); PLATELET COUNT (AUTO) 173 K/uL (152-348); RED BLOOD CELL COUNT(AUTO) 3.55 MIL/uL (4.06-5.63); WHITE BLOOD COUNT (AUTO) 5.7 K/uL (3.6-10.2)
[2019-07-25 13:16] LABS: CREATININE 0.9 mg/dL (0.6-1.3); POTASSIUM 3.8 mmol/L (3.5-5.1)
[2019-07-25 13:21] LABS: BILIRUBIN,TOTAL 0.7 mg/dL (0.2-1.0); MAGNESIUM 2.2 mg/dL (1.8-2.4)
[2019-07-25 16:01] VITALS: BP 86/32
[2019-07-25] MEDS ORDERED: MAG HYDROX/AL HYDROX/SIMETH 30 ML LIQUID UDC PO PRN (17:30)
[2019-07-25] MEDS ORDERED: IV NORMAL SALINE 250 ML IV ONE (19:00)
[2019-07-25 20:38] VITALS: BP 99/56
[2019-07-25] MEDS: [UNRECOGNIZED DRUG - OTHER] PO SCH (20:53)
[2019-07-25] MEDS: ATORVASTATIN 10 MG TABLET PO SCH (20:53)
[2019-07-25] MEDS: SUCRALFATE 1 G TABLET PO SCH (20:53)
[2019-07-25] MEDS: TAMSULOSIN HCL 0.4 MG CAP.SR.24H PO SCH (20:53)
[2019-07-26] MEDS: GUAIFENESIN/CODEINE 5 ML LIQUID UDC PO PRN (01:41)
[2019-07-26 01:44] LABS: *BLOOD, URINE NEGATIVE (NEGATIVE); *CLARITY,URINE CLEAR (CLEAR); *COLOR,URINE DARK YELLOW (YELLOW); *KETONES,URINE TRACE (NEGATIVE); *UROBILINOGEN,URINE 0.2 E.U./dl (NORMAL); LEUKOCYTE ESTERASE ,URINE NEGATIVE (NEGATIVE); NITRITE, URINE NEGATIVE (NEGATIVE); PH,URINE 5.5 (5.0-8.0); UGLUCOSE NEGATIVE (NEGATIVE)
[2019-07-26 01:47] LABS: *BILIRUBIN,URIN 1+ (NEGATIVE)
[2019-07-26 02:12] LABS: BACTERIA,URINE NONE SEEN /HPF (NONE SEEN); CALCIUM OXALATE CRYSTALS,UR FEW /HPF (NONE SEEN); MUCUS,URINE MANY /LPF (0-FEW); RBC,URINE 0-3 /HPF (0-3); SQUAMOUS EPITHELIAL CELL,UR FEW /HPF (NONE SEEN); WBC,URINE 0-3 /HPF (0-3)
[2019-07-26 04:40] VITALS: BP 97/48
[2019-07-26] MEDS: PANTOPRAZOLE SODIUM 40 MG TABLET.DR PO SCH (06:05)
[2019-07-26 08:00] VITALS: BP 98/46
[2019-07-26] MEDS: CARVEDILOL 6.25 MG TABLET PO SCH ×2 (08:00→17:06)
[2019-07-26] MEDS: GUAIFENESIN LA 600 MG TABLET.SA PO SCH ×2 (09:23→20:16)
[2019-07-26] MEDS: LEVETIRACETAM 500 MG TABLET PO SCH ×2 (09:23→16:59)
[2019-07-26] MEDS: MIRALAX 17 GM POWD.PACK PO SCH (09:23)
[2019-07-26] MEDS: DOCUSATE SODIUM 100 MG CAPSULE PO SCH ×2 (09:23→20:16)
[2019-07-26] MEDS: CHLORHEXIDINE GLUCONATE 15 ML MOUTHWASH MM SCH ×2 (09:23→20:15)
[2019-07-26] MEDS: METOCLOPRAMIDE HCL 5 MG TABLET PO SCH ×2 (09:23→16:59)
[2019-07-26] MEDS: CLOTRIMAZOLE 10 MG TROCHE MM SCH ×4 (09:24→20:16)
[2019-07-26] MEDS: AMIODARONE HCL 200 MG TABLET PO SCH (09:33)
[2019-07-26 14:45] VITALS: BP 104/52
[2019-07-26 19:55] VITALS: BP 83/45
[2019-07-26] MEDS: SUCRALFATE 1 G TABLET PO SCH (20:15)
[2019-07-26] MEDS: ATORVASTATIN 10 MG TABLET PO SCH (20:16)
[2019-07-26] MEDS: TAMSULOSIN HCL 0.4 MG CAP.SR.24H PO SCH (20:16)
[2019-07-26] MEDS: [UNRECOGNIZED DRUG - OTHER] PO SCH (20:16)
[2019-07-26] MEDS: IV D5/ 0.9% NACL 1,000 ML IV PRN (20:47)
[2019-07-27 00:13] VITALS: BP 97/56
[2019-07-27 05:55] VITALS: BP 86/44
[2019-07-27 06:10] VITALS: BP 97/47
[2019-07-27] MEDS: IV D5/ 0.9% NACL 1,000 ML IV PRN (07:10)
[2019-07-27] MEDS: PANTOPRAZOLE SODIUM 40 MG TABLET.DR PO SCH (07:31)
[2019-07-27 07:38] VITALS: BP 109/54
[2019-07-27] MEDS: CARVEDILOL 6.25 MG TABLET PO SCH ×2 (08:00→17:09)
[2019-07-27] MEDS: DOCUSATE SODIUM 100 MG CAPSULE PO SCH ×2 (08:41→20:24)
[2019-07-27] MEDS: LEVETIRACETAM 500 MG TABLET PO SCH ×2 (08:42→17:06)
[2019-07-27] MEDS: CLOTRIMAZOLE 10 MG TROCHE MM SCH ×4 (08:42→20:26)
[2019-07-27] MEDS: ACETAMINOPHEN 325 MG TABLET PO PRN (08:42)
[2019-07-27] MEDS: CHLORHEXIDINE GLUCONATE 15 ML MOUTHWASH MM SCH ×2 (08:43→20:25)
[2019-07-27] MEDS: AMIODARONE HCL 200 MG TABLET PO SCH (08:43)
[2019-07-27] MEDS: GUAIFENESIN LA 600 MG TABLET.SA PO SCH ×2 (08:43→20:25)
[2019-07-27] MEDS: MIRALAX 17 GM POWD.PACK PO SCH (08:44)
[2019-07-27] MEDS: PROTEIN SUPPLEMENT (PROSTAT) 30 ML LIQUID PO SCH ×3 (08:44→17:06)
[2019-07-27] MEDS: METOCLOPRAMIDE HCL 5 MG TABLET PO SCH ×2 (08:44→17:06)
[2019-07-27] MEDS ORDERED: MEGESTROL ACETATE 20 MG TABLET PO SCH (13:15)
[2019-07-27] MEDS: MEGESTROL ACETATE 400 MG/10 ML LIQUID UDC PO SCH (14:19)
[2019-07-27 14:54] VITALS: BP 100/46
[2019-07-27 19:30] VITALS: BP 85/43
[2019-07-27] MEDS: TAMSULOSIN HCL 0.4 MG CAP.SR.24H PO SCH (20:24)
[2019-07-27] MEDS: ATORVASTATIN 10 MG TABLET PO SCH (20:24)
[2019-07-27] MEDS: [UNRECOGNIZED DRUG - OTHER] PO SCH (20:26)
[2019-07-27] MEDS: SUCRALFATE 1 G TABLET PO SCH (20:30)
[2019-07-27] MEDS ORDERED: IV NORMAL SALINE 250 ML IV ONE (20:30)
[2019-07-28 05:38] VITALS: BP 107/57
[2019-07-28] MEDS: PANTOPRAZOLE SODIUM 40 MG TABLET.DR PO SCH (06:30)
[2019-07-28 08:00] VITALS: BP 108/55
[2019-07-28] MEDS: CARVEDILOL 6.25 MG TABLET PO SCH ×2 (08:00→17:47)
[2019-07-28] MEDS: DOCUSATE SODIUM 100 MG CAPSULE PO SCH (08:46)
[2019-07-28] MEDS: LEVETIRACETAM 500 MG TABLET PO SCH ×2 (08:46→17:42)
[2019-07-28] MEDS: GUAIFENESIN LA 600 MG TABLET.SA PO SCH ×2 (08:46→20:47)
[2019-07-28] MEDS: CHLORHEXIDINE GLUCONATE 15 ML MOUTHWASH MM SCH ×2 (08:47→20:47)
[2019-07-28] MEDS: PROTEIN SUPPLEMENT (PROSTAT) 30 ML LIQUID PO SCH ×3 (08:47→17:42)
[2019-07-28] MEDS: MEGESTROL ACETATE 400 MG/10 ML LIQUID UDC PO SCH (08:47)
[2019-07-28] MEDS: CLOTRIMAZOLE 10 MG TROCHE MM SCH ×4 (08:47→20:47)
[2019-07-28] MEDS: MIRALAX 17 GM POWD.PACK PO SCH (08:48)
[2019-07-28] MEDS: AMIODARONE HCL 200 MG TABLET PO SCH (08:48)
[2019-07-28] MEDS: METOCLOPRAMIDE HCL 5 MG TABLET PO SCH ×2 (08:49→17:42)
[2019-07-28 12:28] LABS: BASOPHILS # (AUTO) 0.1 K/uL (0.0-8.0); BASOPHILS % (AUTO) 0.7 % (0.0-2.0); EOSINOPHILS # (AUTO) 0.2 K/uL (0.0-0.7); LYMPHOCYTES # (AUTO) 0.6 K/uL (20.0-40.0); MONOCYTES # (AUTO) 0.6 K/uL (2.0-10.0); NEUTROPHILS # (AUTO) 6.5 K/uL (1.8-8.9)
[2019-07-28 12:36] LABS: LYMPHOCYTES % (AUTO) 8.1 % (20.5-51.5); MEAN CORPUSCULAR HEMOGLOBIN 34.2 uug (23.8-33.4); MEAN CORPUSCULAR HGB CONC 33 g/dL (32.5-36.3); MEAN CORPUSCULAR VOLUME 103.4 fL (73.0-96.2); MONOCYTES % (AUTO) 7.1 % (0.0-11.0); NEUTROPHILS % (AUTO) 82.1 % (38.5-71.5); PLATELET COUNT (AUTO) 206 K/uL (152-348); RED BLOOD CELL COUNT(AUTO) 3.93 MIL/uL (4.06-5.63)
[2019-07-28 12:37] LABS: HEMATOCRIT 40.7 % (36.7-47.1); HEMOGLOBIN 13.5 g/dL (12.5-16.3); WHITE BLOOD COUNT (AUTO) 7.9 K/uL (3.6-10.2)
[2019-07-28 12:50] LABS: BILIRUBIN,TOTAL 0.7 mg/dL (0.2-1.0); CREATININE 0.7 mg/dL (0.6-1.3); POTASSIUM 3.2 mmol/L (3.5-5.1); TOTAL PROTEIN, SERUM 5.5 g/dL (6.4-8.2)
[2019-07-28 16:00] VITALS: BP 117/60
[2019-07-28] MEDS: IV D5/ 0.9% NACL 1,000 ML IV PRN (16:12)
[2019-07-28] MEDS ORDERED: POTASSIUM CHLORIDE 20 MEQ TAB.PRT.SR PO ONE (16:15)
[2019-07-28] MEDS ORDERED: BARIUM SULFATE 148 GM SUSP.RECON PO ONE (18:36)
[2019-07-28] MEDS ORDERED: BARIUM SULFATE 240 ML ORAL.SUSP PO ONE (18:36)
[2019-07-28] MEDS: TAMSULOSIN HCL 0.4 MG CAP.SR.24H PO SCH (20:47)
[2019-07-28] MEDS: ATORVASTATIN 10 MG TABLET PO SCH (20:47)
[2019-07-28] MEDS: [UNRECOGNIZED DRUG - OTHER] PO SCH (20:47)
[2019-07-28] MEDS: SUCRALFATE 1 G TABLET PO SCH (20:47)
[2019-07-28 20:51] VITALS: BP 118/62
[2019-07-29 05:11] VITALS: BP 110/51
[2019-07-29] MEDS: PANTOPRAZOLE SODIUM 40 MG TABLET.DR PO SCH (06:53)
[2019-07-29] MEDS: PROTEIN SUPPLEMENT (PROSTAT) 30 ML LIQUID PO SCH ×3 (08:00→18:09)
[2019-07-29 08:07] LABS: CARBON DIOXIDE 23 mmol/L (21-32); CHLORIDE 112 mmol/L (98-107); GLUCOSE 75 mg/dL (74-106); POTASSIUM 3.1 mmol/L (3.5-5.1); UREA NITROGEN, BLOOD 8 mg/dL (7-18)
[2019-07-29 08:42] LABS: CREATININE 0.7 mg/dL (0.6-1.3)
[2019-07-29 08:54] VITALS: BP 124/61
[2019-07-29] MEDS: CARVEDILOL 6.25 MG TABLET PO SCH ×2 (09:15→18:09)
[2019-07-29] MEDS: CLOTRIMAZOLE 10 MG TROCHE MM SCH ×4 (09:16→21:25)
[2019-07-29] MEDS: CHLORHEXIDINE GLUCONATE 15 ML MOUTHWASH MM SCH ×2 (09:17→21:28)
[2019-07-29] MEDS: AMIODARONE HCL 200 MG TABLET PO SCH (09:18)
[2019-07-29] MEDS: METOCLOPRAMIDE HCL 5 MG TABLET PO SCH ×2 (09:19→18:09)
[2019-07-29] MEDS: MEGESTROL ACETATE 400 MG/10 ML LIQUID UDC PO SCH (09:19)
[2019-07-29] MEDS: GUAIFENESIN LA 600 MG TABLET.SA PO SCH ×2 (09:22→21:27)
[2019-07-29] MEDS: LEVETIRACETAM 500 MG TABLET PO SCH ×2 (09:23→18:08)
[2019-07-29] MEDS ORDERED: POTASSIUM CHLORIDE 20 MEQ TAB.PRT.SR PO ONE (14:15)
[2019-07-29 15:55] VITALS: BP 113/45
[2019-07-29] MEDS: IV D5/ 0.9% NACL 1,000 ML IV PRN (18:15)
[2019-07-29 21:09] VITALS: BP 138/61
[2019-07-29] MEDS: TAMSULOSIN HCL 0.4 MG CAP.SR.24H PO SCH (21:25)
[2019-07-29] MEDS: ATORVASTATIN 10 MG TABLET PO SCH (21:25)
[2019-07-29] MEDS: SUCRALFATE 1 G TABLET PO SCH (21:26)
[2019-07-29] MEDS: [UNRECOGNIZED DRUG - OTHER] PO SCH (21:26)
[2019-07-30 05:53] VITALS: BP 130/61
[2019-07-30] MEDS: PANTOPRAZOLE SODIUM 40 MG TABLET.DR PO SCH (06:20)
[2019-07-30] MEDS: PROTEIN SUPPLEMENT (PROSTAT) 30 ML LIQUID PO SCH ×3 (08:32→17:52)
[2019-07-30] MEDS: CLOTRIMAZOLE 10 MG TROCHE MM SCH (08:32)
[2019-07-30] MEDS: CARVEDILOL 6.25 MG TABLET PO SCH ×2 (08:32→17:54)
[2019-07-30] MEDS: AMIODARONE HCL 200 MG TABLET PO SCH (08:33)
[2019-07-30] MEDS: CHLORHEXIDINE GLUCONATE 15 ML MOUTHWASH MM SCH ×2 (08:33→20:17)
[2019-07-30] MEDS: LEVETIRACETAM 500 MG TABLET PO SCH ×2 (08:33→17:50)
[2019-07-30] MEDS: MEGESTROL ACETATE 400 MG/10 ML LIQUID UDC PO SCH (08:33)
[2019-07-30] MEDS: METOCLOPRAMIDE HCL 5 MG TABLET PO SCH ×2 (08:34→17:52)
[2019-07-30] MEDS: GUAIFENESIN LA 600 MG TABLET.SA PO SCH (08:34)
[2019-07-30] MEDS: IV D5/ 0.9% NACL 1,000 ML IV PRN (11:24)
[2019-07-30] MEDS ORDERED: POTASSIUM CHLORIDE 20 MEQ TAB.PRT.SR PO ONE (13:30)
[2019-07-30 16:34] VITALS: BP 96/43
[2019-07-30 19:00] VITALS: BP 96/44
[2019-07-30] MEDS: ATORVASTATIN 10 MG TABLET PO SCH (20:17)
[2019-07-30] MEDS: SUCRALFATE 1 G TABLET PO SCH (20:17)
[2019-07-30] MEDS: TAMSULOSIN HCL 0.4 MG CAP.SR.24H PO SCH (20:17)
[2019-07-30] MEDS: [UNRECOGNIZED DRUG - OTHER] PO SCH (20:18)
[2019-07-31] VITALS (9 sets, daily range): BP systolic 98–130; BP diastolic 54–89
[2019-07-31] MEDS: IV D5/ 0.9% NACL 1,000 ML IV PRN (05:26)
[2019-07-31] MEDS: PANTOPRAZOLE SODIUM 40 MG TABLET.DR PO SCH (06:31)
[2019-07-31] MEDS: PROTEIN SUPPLEMENT (PROSTAT) 30 ML LIQUID PO SCH ×3 (08:29→17:23)
[2019-07-31] MEDS: MEGESTROL ACETATE 400 MG/10 ML LIQUID UDC PO SCH (08:30)
[2019-07-31] MEDS: CHLORHEXIDINE GLUCONATE 15 ML MOUTHWASH MM SCH (08:33)
[2019-07-31] MEDS: METOCLOPRAMIDE HCL 5 MG TABLET PO SCH ×2 (08:33→17:22)
[2019-07-31] MEDS: LEVETIRACETAM 500 MG TABLET PO SCH ×2 (08:33→17:22)
[2019-07-31] MEDS: AMIODARONE HCL 200 MG TABLET PO SCH (08:34)
[2019-07-31] MEDS: CARVEDILOL 6.25 MG TABLET PO SCH ×2 (08:34→18:00)
[2019-07-31 08:52] LABS: CREATININE 0.7 mg/dL (0.6-1.3); MAGNESIUM 1.5 mg/dL (1.8-2.4); PHOSPHOROUS 3.8 mg/dL (2.5-4.9); POTASSIUM 3.1 mmol/L (3.5-5.1)
[2019-07-31 08:54] LABS: LYMPHOCYTES # (AUTO) 0.5 K/uL (20.0-40.0); MONOCYTES # (AUTO) 0.5 K/uL (2.0-10.0); PLATELET COUNT (AUTO) 168 K/uL (152-348)
[2019-07-31 09:02] LABS: BASOPHILS % (AUTO) 0.6 % (0.0-2.0); EOSINOPHILS # (AUTO) 0.1 K/uL (0.0-0.7); EOSINOPHILS % (AUTO) 2.5 % (0.0-7.0); HEMATOCRIT 33.3 % (36.7-47.1); HEMOGLOBIN 11.5 g/dL (12.5-16.3); LYMPHOCYTES % (AUTO) 8.2 % (20.5-51.5); MEAN CORPUSCULAR HEMOGLOBIN 35.1 uug (23.8-33.4); MEAN CORPUSCULAR HGB CONC 35 g/dL (32.5-36.3); MEAN CORPUSCULAR VOLUME 101.6 fL (73.0-96.2); MONOCYTES % (AUTO) 9.1 % (0.0-11.0); NEUTROPHILS # (AUTO) 4.4 K/uL (1.8-8.9); NEUTROPHILS % (AUTO) 79.6 % (38.5-71.5); RED BLOOD CELL COUNT(AUTO) 3.28 MIL/uL (4.06-5.63); WHITE BLOOD COUNT (AUTO) 5.5 K/uL (3.6-10.2)
[2019-07-31] MEDS ORDERED: POTASSIUM CHLORIDE 20 MEQ TAB.PRT.SR PO ONE (09:30)
[2019-07-31] MEDS: MAGNESIUM SULFATE/D5W 100 ML IV SCH ×2 (09:55→16:03)
[2019-07-31] MEDS: ACETAMINOPHEN 325 MG TABLET PO PRN (13:22)
[2019-07-31] MEDS ORDERED: LEVOFLOXACIN 500 MG TABLET PO SCH (18:00)
[2019-07-31 18:17] LABS: *BILIRUBIN,URIN NEGATIVE (NEGATIVE); *BLOOD, URINE NEGATIVE (NEGATIVE); *CLARITY,URINE CLEAR (CLEAR); *COLOR,URINE YELLOW (YELLOW); *KETONES,URINE NEGATIVE (NEGATIVE); *UROBILINOGEN,URINE 0.2 E.U./dl (NORMAL); LEUKOCYTE ESTERASE ,URINE NEGATIVE (NEGATIVE); NITRITE, URINE NEGATIVE (NEGATIVE); PH,URINE 5.5 (5.0-8.0); UGLUCOSE NEGATIVE (NEGATIVE)
[2019-07-31] MEDS: ALBUTEROL SULFATE 1.25 MG/3 ML NEBU NEB PRN (18:54)
[2019-07-31] MEDS: IPRATROPIUM BROMIDE 0.5 MG/2.5 ML NEBU NEB PRN (18:54)
[2019-08-01] MEDS ORDERED: ATOR10TA PO (17:33)
[2019-08-01] MEDS ORDERED: BENZ1LOZ58 MM (17:36)
[2019-08-01] MEDS ORDERED: [UNRECOGNIZED DRUG - OTHER] (17:46)
[2019-08-01] MEDS ORDERED: LEVO500T2 PO (17:48)
[2019-08-01] MEDS ORDERED: MAG30ORA GT (17:49)
[2019-08-01] MEDS ORDERED: MEGACE LIQUID PO (17:50)
[2019-08-01] MEDS ORDERED: METO-295 PO (17:52)
[2019-08-01] MEDS ORDERED: ONDA4TAB5 PO (17:53)
[2019-08-01] MEDS ORDERED: [UNRECOGNIZED DRUG - CODE] PO (17:57)
[2019-08-01] MEDS ORDERED: PROT30LI (17:59)
[2019-08-01] MEDS ORDERED: Z-GUARD (18:00)
[2019-08-01 19:02] VITALS: BP 110/67
== END 2019-07-31 21:00 | disposition short-term general hospital (02) | DRG 189 ==
PROVIDERS: ADMIT Physical Medicine & Rehabilitation Pain Medicine; ATTEND Physical Medicine & Rehabilitation Pain Medicine
DX: J96.01 Acute respiratory failure with hypoxia (principal); J69.0 Pneumonitis due to inhalation of food and vomit; E44.0 Moderate protein-calorie malnutrition; D68.59 Other primary thrombophilia; L97.319 Non-pressure chronic ulcer of right ankle with unspecified severity; I50.32 Chronic diastolic (congestive) heart failure; B37.0 Candidal stomatitis; D63.8 Anemia in other chronic diseases classified elsewhere; E78.5 Hyperlipidemia, unspecified; I48.0 Paroxysmal atrial fibrillation; I70.0 Atherosclerosis of aorta; K21.9 Gastro-esophageal reflux disease without esophagitis; N40.0 Benign prostatic hyperplasia without lower urinary tract symptoms; R13.10 Dysphagia, unspecified; J20.9 Acute bronchitis, unspecified; Z85.841 Personal history of malignant neoplasm of brain; D69.59 Other secondary thrombocytopenia; E87.6 Hypokalemia; I95.1 Orthostatic hypotension; I73.9 Peripheral vascular disease, unspecified; G90.8 Other disorders of autonomic nervous system; J45.909 Unspecified asthma, uncomplicated; M20.41 Other hammer toe(s) (acquired), right foot; M20.42 Other hammer toe(s) (acquired), left foot; R73.03 Prediabetes; R53.81 Other malaise; Z88.0 Allergy status to penicillin; Z92.21 Personal history of antineoplastic chemotherapy; M20.5X2 Other deformities of toe(s) (acquired), left foot; M20.5X1 Other deformities of toe(s) (acquired), right foot; R19.7 Diarrhea, unspecified
CPT/HCPCS: 36415; 71045; 74230; 83735; 84100; 84443; 85025; 86625; 87040; 87046; 87086; 93005; 94640; A4663; J0692; J3475; J3490; J3590; J7042; J7050; J7060; J7509; J8597; J8999; Q0167

== ENCOUNTER 2019-07-31 21:26 | Inpatient (IN) | payer BC ==
[~2019-07-31] VITALS: Ht 167.6 cm; Wt 58.6 kg
[~2019-07-31 21:26] MED LIST changes: -DRON2.5C PO
--- NOTE | 2019-07-31 21:30 | NUR ---
RECEIVED PT FROM ARU VIA BAO. DX: SEPSIS. UNDER THE CARE OF DR. ZHENG. FAMILY AT BEDSIDE. PT ON 2L NASAL CANNULA. ADMISSION PROCESS AND CARE PLAN INITIATED. ALF ASSESSMENT DONE. SAFETY AND COMFORT PROVIDED.BELONGING LIST NOTED.WILL CONTINUE TO MONITOR.
[2019-07-31 21:33] VITALS: BP 135/56
[2019-07-31] MEDS ORDERED: IV NS 1000 ML 1,000 ML IV PRN (22:57)
[2019-07-31] MEDS ORDERED: MAGNESIUM HYDROXIDE 30 ML LIQUID UDC PO PRN (23:00)
[2019-07-31] MEDS ORDERED: ONDANSETRON 4 MG/2 ML VIAL IV PRN (23:00)
[2019-07-31] MEDS ORDERED: ACETAMINOPHEN 325 MG TABLET PO PRN (23:00)
[2019-07-31] MEDS ORDERED: Z GUARD REMEDY PASTE 57 GM TUBE TOP PRN (23:00)
[2019-07-31] MEDS ORDERED: ZOLPIDEM 5 MG TABLET PO PRN (23:00)
[2019-08-01] VITALS (13 sets, daily range): BP systolic 79–140; BP diastolic 38–70
[2019-08-01] MEDS: HYDROCODONE/APAP 5-325MG TABLET PO PRN (02:09)
--- NOTE | 2019-08-01 06:16 | NUR ---
PT IN NO ACUTE DISTRESS. PRESCRIBED MEDICATION GIVEN AND PT TOLERATED IT WELL. PT TURNED AND REPOSITIONED.PT ON 2L NASAL CANNULA. IV INTACT. PT TOLERATED IT WELL.SAFETY AND COMFORT PROVIDED. ALL NEEDS ARE MET. WILL ENDORSE TO INCOMING NURSE FOR CONTINUITY OF CARE.
[2019-08-01 07:11] LABS: CREATININE 0.8 mg/dL (0.6-1.3); MAGNESIUM 1.8 mg/dL (1.8-2.4); PHOSPHOROUS 3.6 mg/dL (2.5-4.9)
--- NOTE | 2019-08-01 08:00 | NUR ---
Awake, alert, oriented x 2-3. O2 at 2L/NC with O2 sat of 100%. IVF infusing
[2019-08-01 09:25] LABS: BASOPHILS % (AUTO) 0.3 % (0.0-2.0); HEMATOCRIT 34.5 % (36.7-47.1); LYMPHOCYTES # (AUTO) 0.2 K/uL (20.0-40.0); LYMPHOCYTES % (AUTO) 1.7 % (20.5-51.5); MEAN CORPUSCULAR HEMOGLOBIN 35.1 uug (23.8-33.4); MEAN CORPUSCULAR HGB CONC 35 g/dL (32.5-36.3); MEAN CORPUSCULAR VOLUME 101.1 fL (73.0-96.2); MONOCYTES # (AUTO) 0.3 K/uL (2.0-10.0); MONOCYTES % (AUTO) 3.6 % (0.0-11.0); NEUTROPHILS % (AUTO) 94.4 % (38.5-71.5); PLATELET COUNT (AUTO) 147 K/uL (152-348); RED BLOOD CELL COUNT(AUTO) 3.41 MIL/uL (4.06-5.63); WHITE BLOOD COUNT (AUTO) 9.5 K/uL (3.6-10.2)
--- NOTE | 2019-08-01 12:00 | NUR ---
Assisted with meals, with aspiration precaution.
--- NOTE | 2019-08-01 14:00 | NUR ---
is asking for an MRI brain as requested by oncologist. Relayed to Nani DAIGLE and Becky to check with CM of insurance.
[2019-08-01] MEDS ORDERED: IV NS 1000 ML 1,000 ML IV ONE (15:15)
--- NOTE | 2019-08-01 15:15 | NUR ---
Noted BP 79/41, rechecked several times. Patient awake, alert. Nani DAIGLE informed, with orders for NS 1L bolus, initiated.
[2019-08-01] MEDS: IV NS 1000 ML 1,000 ML IV PRN (16:34)
[2019-08-01] MEDS ORDERED: ATOR10TA PO (17:33)
[2019-08-01] MEDS ORDERED: BENZ1LOZ58 MM (17:36)
[2019-08-01] MEDS ORDERED: [UNRECOGNIZED DRUG - OTHER] (17:46)
[2019-08-01] MEDS ORDERED: LEVO500T2 PO (17:48)
[2019-08-01] MEDS ORDERED: MAG30ORA GT (17:49)
[2019-08-01] MEDS ORDERED: MEGACE LIQUID PO (17:50)
[2019-08-01] MEDS ORDERED: METO-295 PO (17:52)
[2019-08-01] MEDS ORDERED: ONDA4TAB5 PO (17:53)
[2019-08-01] MEDS ORDERED: [UNRECOGNIZED DRUG - CODE] PO (17:57)
[2019-08-01] MEDS ORDERED: PROT30LI (17:59)
[2019-08-01] MEDS ORDERED: Z-GUARD (18:00)
[2019-08-01] MEDS: LEVOFLOXACIN 500 MG/D5W 500 MG in PREMIXED 1 EACH IV SCH (18:07)
--- NOTE | 2019-08-01 18:10 | NUR ---
BP still low, latest 80/42 after bolus. Nani aware with orders to transfer to CCU. Transferred by bed with O2. Report given to
--- NOTE | 2019-08-01 18:45 | NUR ---
RECIEVED PT FROM THIRD FLOOR VIA BED. REASON OF TRANSFER IS HYPOTENSION. PT IS AWKE AND ORIENTEDX3. DENIES ANY PAIN. SBP IS 123/60 ON THE RIGHT CALF. PT DENIES ANY DIZZINESS OR HEADACHE. AFEBRILE. MAIN IVF IS NS AT 100ML/HR. NO APPARENT DISTRESS NOTED. CONDITION IS STABLE.
[2019-08-02] VITALS (13 sets, daily range): BP systolic 118–160; BP diastolic 44–80
[2019-08-02] MEDS: IV NS 1000 ML 1,000 ML IV PRN ×2 (03:00→15:30)
[2019-08-02] MEDS: HYDROCODONE/APAP 5-325MG TABLET PO PRN (04:23)
[2019-08-02 05:31] LABS: BASOPHILS % (AUTO) 0.4 % (0.0-2.0); EOSINOPHILS # (AUTO) 0.1 K/uL (0.0-0.7); HEMATOCRIT 31.3 % (36.7-47.1); HEMOGLOBIN 10.7 g/dL (12.5-16.3); LYMPHOCYTES # (AUTO) 0.3 K/uL (20.0-40.0); LYMPHOCYTES % (AUTO) 5.4 % (20.5-51.5); MEAN CORPUSCULAR HEMOGLOBIN 34.6 uug (23.8-33.4); MEAN CORPUSCULAR HGB CONC 34 g/dL (32.5-36.3); MEAN CORPUSCULAR VOLUME 101.3 fL (73.0-96.2); MONOCYTES # (AUTO) 0.3 K/uL (2.0-10.0); MONOCYTES % (AUTO) 6.1 % (0.0-11.0); NEUTROPHILS # (AUTO) 4.7 K/uL (1.8-8.9); NEUTROPHILS % (AUTO) 87.1 % (38.5-71.5); PLATELET COUNT (AUTO) 130 K/uL (152-348); RED BLOOD CELL COUNT(AUTO) 3.09 MIL/uL (4.06-5.63); WHITE BLOOD COUNT (AUTO) 5.3 K/uL (3.6-10.2)
[2019-08-02 05:50] LABS: CREATININE 0.7 mg/dL (0.6-1.3); MAGNESIUM 1.6 mg/dL (1.8-2.4); PHOSPHOROUS 4.2 mg/dL (2.5-4.9); POTASSIUM 3.8 mmol/L (3.5-5.1)
--- NOTE | 2019-08-02 08:00 | NUR ---
PT IS EATING BUT IN VERY SMALL PORTION EACH TIME WITH MAXIMUM ASSIST.
--- NOTE | 2019-08-02 10:30 | NUR ---
SEEN AND EXAMINED BY DR CALDERÓN WITH NEW ORDERS.
[2019-08-02] MEDS ORDERED: MAGNESIUM HYDROXIDE 30 ML LIQUID UDC PO PRN (11:00)
[2019-08-02] MEDS ORDERED: ONDANSETRON HCL 4 MG TABLET PO PRN (11:00)
[2019-08-02] MEDS ORDERED: HYDROCODONE/APAP 5-325MG TABLET PO PRN (11:00)
[2019-08-02] MEDS ORDERED: ALBUTEROL SULFATE 1.25 MG/3 ML NEBU NEB PRN (11:00)
[2019-08-02] MEDS ORDERED: IPRATROPIUM BROMIDE 0.5 MG/2.5 ML NEBU NEB PRN (11:00)
[2019-08-02] MEDS ORDERED: ACETAMINOPHEN 325 MG TABLET PO PRN (11:00)
--- NOTE | 2019-08-02 11:00 | NUR ---
SEEN AND EXAMINED BY DR AVILEZ WITH NEW ORDER TO DOWNGRADE THE PT TO MEDSURG.
[2019-08-02] MEDS: MAGNESIUM SULFATE/D5W 100 ML IV SCH ×2 (11:56→13:28)
[2019-08-02] MEDS ORDERED: PANTOPRAZOLE SODIUM 40 MG TABLET.DR PO ONE (12:30)
--- NOTE | 2019-08-02 12:30 | NUR ---
PT C/O SEVERE REFLUX. MEDICATED WITH PROTONIX 40MG PO AND MYLANTA 30ML PO ORDERED. PT GOT RELIEVED BUT REFUSED TO EAT LUNCH.
[2019-08-02] MEDS: MAG HYDROX/AL HYDROX/SIMETH 30 ML LIQUID UDC PO PRN ×2 (12:33→12:35)
[2019-08-02] MEDS: AMIODARONE HCL 200 MG TABLET PO SCH (12:34)
--- NOTE | 2019-08-02 15:45 | NUR ---
PT IS TRANSFERRED TO 308 VIA BED. CONDITION ISN STABLE. REPORT GIVEN TO BRO BUTCHER.
[2019-08-02 16:18] LABS: *BILIRUBIN,URIN NEGATIVE (NEGATIVE); *BLOOD, URINE NEGATIVE (NEGATIVE); *CLARITY,URINE SLIGHTLY CLOUDY (CLEAR); *COLOR,URINE DARK YELLOW (YELLOW); *KETONES,URINE 1+ (NEGATIVE); *UROBILINOGEN,URINE 0.2 E.U./dl (NORMAL); LEUKOCYTE ESTERASE ,URINE NEGATIVE (NEGATIVE); NITRITE, URINE NEGATIVE (NEGATIVE); PH,URINE 5.5 (5.0-8.0); UGLUCOSE NEGATIVE (NEGATIVE)
--- NOTE | 2019-08-02 16:20 | NUR ---
PATIENT TRANSFERED FROM CCU. REPORT GIVEN FROM ROBERT BUTCHER. PATIENT AWAKE, AOX4.COMPLAINS OF MILD FACIAL PAIN AND MILD GENERALIZED PAIN.DID NOT WANT MEDICATIONS AT THIS TIME. VS STABLE UPON TRANSFER. LT. MIDLINE IN PLACE WITH FLUIDS RUNNING. ALL NEEDS MET AT THIS TIME. SAFETY AND FALL PREVENTION IN PLACE. CALL LIGHT IN REACH. BED IN LOW AND LOCKED POSITION. WILL CONTINUE TO MONITOR.
[2019-08-02] MEDS: METOCLOPRAMIDE HCL 10 MG TABLET PO SCH (17:00)
[2019-08-02] MEDS ORDERED: LEVOFLOXACIN 500 MG/D5W 100 ML ONE (17:06)
--- NOTE | 2019-08-02 17:06 | NUR ---
LEVOFLOXACIN THAT WAS PULLED OUT OF PIXES NOT GIVEN. WILL GIVE THE LEVOFLOXACIN ORDERED FROM PHARMACY.
[2019-08-02 17:30] LABS: COARSE GRANULAR CASTS,URINE 0-3 /LPF; MUCUS,URINE MANY /LPF (0-FEW); SQUAMOUS EPITHELIAL CELL,UR FEW /HPF (NONE SEEN)
[2019-08-02] MEDS: CARVEDILOL 6.25 MG TABLET PO SCH (17:44)
[2019-08-02] MEDS: LEVOFLOXACIN 500 MG/D5W 500 MG in PREMIXED 1 EACH IV SCH (18:44)
--- NOTE | 2019-08-02 18:52 | NUR ---
PATIENT AWAKE, AOX4.COMPLAINS OF MILD GENERALIZED PAIN. CONTINUES TO REFUSE PAIN MEDICATION. VS STABLE THROUGHOUT THE SHIFT. LT. MIDLINE IN PLACE WITH FLUIDS RUNNING. ALL NEEDS MET AT THIS TIME. SAFETY AND FALL PREVENTION IN PLACE. CALL LIGHT IN REACH. BED IN LOW AND LOCKED POSITION. WILL REPORT TO ONCOMING NURSE.
--- NOTE | 2019-08-02 19:30 | NUR ---
Received patient awake and alert in bed. A/Ox3 with son at bedside. No signs of acute distress noted. No complaints of pain or SOB. Vitals WNL. Aspiration precautions initiated. Left midline is intact and patent. Safety measures initiated. Bed is low and locked, call light within reach, bed alarm on. Will continue to monitor.
[2019-08-02] MEDS: LEVETIRACETAM 500 MG TABLET PO SCH (20:13)
[2019-08-02] MEDS: ATORVASTATIN 10 MG TABLET PO SCH (20:13)
[2019-08-02] MEDS: CHLORHEXIDINE GLUCONATE 15 ML MOUTHWASH MM SCH (20:13)
[2019-08-02] MEDS: TAMSULOSIN HCL 0.4 MG CAP.SR.24H PO SCH (20:13)
[2019-08-02] MEDS: SUCRALFATE 1 G TABLET PO SCH (20:13)
[2019-08-02] MEDS ORDERED: [UNRECOGNIZED DRUG - OTHER] PO SCH (21:00)
[2019-08-02] MEDS ORDERED: [UNRECOGNIZED DRUG - OTHER] PO SCH (21:00)
[2019-08-03] MEDS: IV NS 1000 ML 1,000 ML IV PRN ×2 (03:13→17:00)
[2019-08-03 05:49] VITALS: BP 122/86
[2019-08-03] MEDS: PANTOPRAZOLE SODIUM 40 MG TABLET.DR PO SCH (06:19)
[2019-08-03 06:33] LABS: BASOPHILS % (AUTO) 0.3 % (0.0-2.0); EOSINOPHILS # (AUTO) 0.1 K/uL (0.0-0.7); EOSINOPHILS % (AUTO) 1.7 % (0.0-7.0); HEMATOCRIT 32.6 % (36.7-47.1); HEMOGLOBIN 11.1 g/dL (12.5-16.3); LYMPHOCYTES # (AUTO) 0.4 K/uL (20.0-40.0); LYMPHOCYTES % (AUTO) 6.9 % (20.5-51.5); MEAN CORPUSCULAR HEMOGLOBIN 34.7 uug (23.8-33.4); MEAN CORPUSCULAR HGB CONC 34 g/dL (32.5-36.3); MEAN CORPUSCULAR VOLUME 101.7 fL (73.0-96.2); MONOCYTES # (AUTO) 0.4 K/uL (2.0-10.0); MONOCYTES % (AUTO) 8.2 % (0.0-11.0); NEUTROPHILS # (AUTO) 4.4 K/uL (1.8-8.9); NEUTROPHILS % (AUTO) 82.9 % (38.5-71.5); PLATELET COUNT (AUTO) 134 K/uL (152-348); WHITE BLOOD COUNT (AUTO) 5.3 K/uL (3.6-10.2)
--- NOTE | 2019-08-03 06:39 | NUR ---
PATIENT SLEPT INTERMITTENTLY THROUGHOUT SHIFT. NO SIGNS OF ACUTE DISTRESS NOTED. PATIENT ANXIOUS AT TIMES, NOT KNOWING WHERE HE IS, REORIENTATION GIVEN NEEDED. IVF RUNNING ON THE LEFT UPPER ARM. SAFETY MEASURES GIVEN. WILL ENDORSE TO NEXT SHIFT.
[2019-08-03 06:47] LABS: CREATININE 0.7 mg/dL (0.6-1.3); MAGNESIUM 1.8 mg/dL (1.8-2.4); POTASSIUM 3.3 mmol/L (3.5-5.1)
--- NOTE | 2019-08-03 07:30 | NUR ---
RECEIVED PATIENT AWAKE, AOX4. COMPLAINS OF MILD GENERALIZED PAIN. DECLINED PAIN MEDICATION. LT. MIDLINE IN PLACE WITH FLUIDS RUNNING. ALL NEEDS MET AT THIS TIME. SAFETY AND FALL PREVENTION IN PLACE. CALL LIGHT IN REACH. BED IN LOW AND LOCKED POSITION. WILL CONTINUE TO MONITOR.
[2019-08-03] MEDS ORDERED: POTASSIUM CHLORIDE 20 MEQ TAB.PRT.SR PO ONE (08:30)
[2019-08-03] MEDS: CHLORHEXIDINE GLUCONATE 15 ML MOUTHWASH MM SCH ×2 (08:58→20:21)
[2019-08-03] MEDS: CARVEDILOL 6.25 MG TABLET PO SCH ×2 (08:58→17:15)
[2019-08-03] MEDS: LEVETIRACETAM 500 MG TABLET PO SCH ×2 (08:59→20:21)
[2019-08-03] MEDS: MEGESTROL ACETATE 400 MG/10 ML LIQUID UDC PO SCH (09:00)
[2019-08-03] MEDS ORDERED: MEGESTROL PO SCH (09:00)
[2019-08-03] MEDS ORDERED: LEVOFLOXACIN 500 MG TABLET PO SCH (09:00)
[2019-08-03] MEDS ORDERED: [UNRECOGNIZED DRUG - OTHER] PO SCH ×2 (09:00→10:48)
[2019-08-03] MEDS: METOCLOPRAMIDE HCL 10 MG TABLET PO SCH ×2 (09:01→17:11)
[2019-08-03] MEDS: AMIODARONE HCL 200 MG TABLET PO SCH (09:05)
[2019-08-03 11:04] VITALS: BP 101/56
[2019-08-03 15:14] VITALS: BP 109/61
[2019-08-03] MEDS ORDERED: BENZOCAINE/MENTH/CETYLPYRD LOZENGE MM PRN (15:30)
[2019-08-03] MEDS: PROTEIN SUPPLEMENT (PROSTAT) 30 ML LIQUID PO SCH (17:10)
[2019-08-03] MEDS: LEVOFLOXACIN 500 MG/D5W 500 MG in PREMIXED 1 EACH IV SCH (17:10)
--- NOTE | 2019-08-03 17:47 | NUR ---
PATIENT AWAKE, AOX4.COMPLAINS OF MILD GENERALIZED PAIN. DECLINED PAIN MEDICATION. VS STABLE THROUGHOUT THE SHIFT. LT. MIDLINE IN PLACE WITH FLUIDS RUNNING. ALL NEEDS MET AT THIS TIME. SAFETY AND FALL PREVENTION IN PLACE. CALL LIGHT IN REACH. BED IN LOW AND LOCKED POSITION. WILL REPORT TO ONCOMING NURSE.
--- NOTE | 2019-08-03 19:27 | NUR ---
Received patient resting in bed, easily to arouse. Family is at bedside. No distress noted. No complaints of pain or SOB. IVF running on the left upper arm. Safety measures initiated. Bed is low and locked, call light within reach, bed alarm on. Will continue to monitor.
[2019-08-03 20:15] VITALS: BP 116/67
[2019-08-03] MEDS: SUCRALFATE 1 G TABLET PO SCH (20:20)
[2019-08-03] MEDS: ATORVASTATIN 10 MG TABLET PO SCH (20:21)
[2019-08-03] MEDS: TAMSULOSIN HCL 0.4 MG CAP.SR.24H PO SCH (20:21)
[2019-08-03] MEDS: HYDROCODONE/APAP 5-325MG TABLET PO PRN (20:59)
[2019-08-04] MEDS: IV NS 1000 ML 1,000 ML IV PRN (02:31)
[2019-08-04 04:47] VITALS: BP 101/55
[2019-08-04] MEDS: PANTOPRAZOLE SODIUM 40 MG TABLET.DR PO SCH (06:23)
--- NOTE | 2019-08-04 06:46 | NUR ---
Patient slept well, [place] given for pain x1. Vitals WNL. IVF running to left upper arm. Safety measures given. Will endorse to next shift.
--- NOTE | 2019-08-04 07:30 | NUR ---
Received patient in Bed, awake and verbally responsive. hard of Hearing. No signs of distress noted. No SOB. On Oxygen at 2LPM via nasal [place], saturating at 96%. No complain of Pain or discomfort. Kept comfortable. Will continue to monitor.
[2019-08-04] MEDS: PROTEIN SUPPLEMENT (PROSTAT) 30 ML LIQUID PO SCH (08:08)
[2019-08-04] MEDS: CHLORHEXIDINE GLUCONATE 15 ML MOUTHWASH MM SCH (08:08)
[2019-08-04] MEDS: CARVEDILOL 6.25 MG TABLET PO SCH (08:08)
[2019-08-04] MEDS: MEGESTROL ACETATE 400 MG/10 ML LIQUID UDC PO SCH (08:09)
[2019-08-04] MEDS: AMIODARONE HCL 200 MG TABLET PO SCH (08:09)
[2019-08-04] MEDS: LEVETIRACETAM 500 MG TABLET PO SCH (08:09)
[2019-08-04] MEDS: METOCLOPRAMIDE HCL 10 MG TABLET PO SCH (08:11)
[2019-08-04 11:02] VITALS: BP 119/62
--- NOTE | 2019-08-04 11:07 | NUR ---
Patient with Order to Discharge to [facility] Room 115, Called [facility] and spoke with Jordi RN, Discharge Instruction given to patient and verbalized Understanding, All belongings was sent and signed by Patient. Removed ARPAN midline and Wrist band. Patient was picked up by 2 EMT via [place] in stable condition.
== END 2019-08-04 11:00 | DRG 871 ==
LOC: TELE3 21:26 → CCU 08-01 18:30 → MEDSURG3 08-02 16:00
PROVIDERS: ADMIT Student in an Organized Health Care Education/Training Program; ATTEND Student in an Organized Health Care Education/Training Program
DX: A41.9 Sepsis, unspecified organism (principal); J96.01 Acute respiratory failure with hypoxia; J18.1 Lobar pneumonia, unspecified organism; I50.32 Chronic diastolic (congestive) heart failure; D68.59 Other primary thrombophilia; B37.0 Candidal stomatitis; E78.5 Hyperlipidemia, unspecified; K21.9 Gastro-esophageal reflux disease without esophagitis; J20.9 Acute bronchitis, unspecified; Z92.3 Personal history of irradiation; Z92.21 Personal history of antineoplastic chemotherapy; R13.10 Dysphagia, unspecified; E87.6 Hypokalemia; Z74.09 Other reduced mobility; I48.0 Paroxysmal atrial fibrillation; K44.9 Diaphragmatic hernia without obstruction or gangrene; Z87.01 Personal history of pneumonia (recurrent); Z88.0 Allergy status to penicillin; Z85.841 Personal history of malignant neoplasm of brain; N40.0 Benign prostatic hyperplasia without lower urinary tract symptoms; J45.909 Unspecified asthma, uncomplicated; I70.0 Atherosclerosis of aorta; D63.8 Anemia in other chronic diseases classified elsewhere; D69.59 Other secondary thrombocytopenia; R73.03 Prediabetes; I95.9 Hypotension, unspecified
CPT/HCPCS: 36415; 71045; 83605; 83735; 84100; 85025; 87400; 93005; G0378; J1956; J3475; J7030; J8597; J8999; Q0162

== ENCOUNTER 2019-08-14 15:53 | Inpatient (IN) | payer BC ==
[~2019-08-14] VITALS: Ht 167.6 cm; Wt 59.0 kg
--- NOTE | 2019-08-14 16:25 | NUR ---
ROXY MARCOS TALKING TO ER CHARGE NURSE REGARDING ANY ARRANGEMENT FOR SURGORY OF G-TUBE PACEMENT.
--- NOTE | 2019-08-14 16:28 | NUR ---
PT AR BEDSIDE REQUESTING THE PT FOR G-TUBE PLACEMNT SURGERY.
[2019-08-14] MEDS ORDERED: IV NORMAL SALINE 500 ML BAG IV ONE (16:30)
--- NOTE | 2019-08-14 16:30 | NUR ---
IAN POWERS TALKING TO DR. SILVA REGARDING THE PT CARE.
[2019-08-14 16:40] LABS: BASOPHILS # (AUTO) 0.1 K/uL (0.0-8.0); EOSINOPHILS # (AUTO) 0.1 K/uL (0.0-0.7); EOSINOPHILS % (AUTO) 1.1 % (0.0-7.0); HEMATOCRIT 36.6 % (36.7-47.1); HEMOGLOBIN 12.2 g/dL (12.5-16.3); LYMPHOCYTES # (AUTO) 0.8 K/uL (20.0-40.0); LYMPHOCYTES % (AUTO) 8.6 % (20.5-51.5); MEAN CORPUSCULAR HEMOGLOBIN 33.9 uug (23.8-33.4); MEAN CORPUSCULAR HGB CONC 33 g/dL (32.5-36.3); MEAN CORPUSCULAR VOLUME 101.9 fL (73.0-96.2); MONOCYTES # (AUTO) 0.8 K/uL (2.0-10.0); MONOCYTES % (AUTO) 7.7 % (0.0-11.0); NEUTROPHILS % (AUTO) 81.6 % (38.5-71.5); PLATELET COUNT (AUTO) 455 K/uL (152-348); RED BLOOD CELL COUNT(AUTO) 3.59 MIL/uL (4.06-5.63); WHITE BLOOD COUNT (AUTO) 9.8 K/uL (3.6-10.2)
[2019-08-14 16:51] LABS: CREATININE 0.8 mg/dL (0.6-1.3); POTASSIUM 3.5 mmol/L (3.5-5.1)
[2019-08-14 16:57] LABS: BILIRUBIN,DIRECT 0.3 mg/dL (0.0-0.2); BILIRUBIN,TOTAL 0.7 mg/dL (0.2-1.0); TOTAL PROTEIN, SERUM 5.5 g/dL (6.4-8.2)
[2019-08-14] MEDS ORDERED: LIDOCAINE VISCUS 2% 15 ML UDC MM ONE (17:30)
[2019-08-14] MEDS ORDERED: KETOROLAC TROMETHAMINE 30 MG INJ IVP ONE (17:30)
[2019-08-14] MEDS ORDERED: HYDROCODONE/APAP 10-325 MG TABLET PO ONE (17:30)
[2019-08-14] MEDS ORDERED: MAG HYDROX/AL HYDROX/SIMETH 30 ML LIQUID UDC PO ONE (17:30)
--- NOTE | 2019-08-14 17:35 | NUR ---
[facility] provider Dr. Perez paged, awaiting call back.
[2019-08-14 18:11] LABS: *BLOOD, URINE NEGATIVE (NEGATIVE); *CLARITY,URINE CLEAR (CLEAR); *COLOR,URINE DARK YELLOW (YELLOW); *KETONES,URINE 1+ (NEGATIVE); LEUKOCYTE ESTERASE ,URINE NEGATIVE (NEGATIVE); NITRITE, URINE NEGATIVE (NEGATIVE); PH,URINE 6.5 (5.0-8.0); UGLUCOSE NEGATIVE (NEGATIVE)
[2019-08-14 18:17] LABS: *BILIRUBIN,URIN 2+ (NEGATIVE)
[2019-08-14 18:21] LABS: BACTERIA,URINE NONE SEEN /HPF (NONE SEEN); MUCUS,URINE FEW /LPF (0-FEW); RBC,URINE 0-3 /HPF (0-3); SQUAMOUS EPITHELIAL CELL,UR MODERATE /HPF (NONE SEEN)
--- NOTE | 2019-08-14 18:31 | NUR ---
pt transfered to floor in stable condition. pt remained at bedside the whole er stay.
--- NOTE | 2019-08-14 20:00 | NUR ---
RECEIVED PATIENT IN BED. PATIENT IS A/O X3. DENIES PAIN OR DISCOMFORT. H/L NOTED TO RIGHT WRIST #20 GAUGE. WAITING FOR ADMISSION ORDERS. ALL NEEDS ATTENDED. WILL CONTINUE TO MONITOR AND ASSESS.
[2019-08-14] MEDS ORDERED: MAGNESIUM HYDROXIDE 30 ML LIQUID UDC PO PRN (20:30)
[2019-08-14] MEDS ORDERED: ACETAMINOPHEN 325 MG TABLET PO PRN (20:30)
[2019-08-14] MEDS ORDERED: ONDANSETRON 4 MG/2 ML VIAL IV PRN (20:30)
[2019-08-14] MEDS ORDERED: IV D5 1/2 NS 1000 ML 1,000 ML IV PRN (20:30)
[2019-08-14] MEDS ORDERED: HYDROCODONE/APAP 5-325MG TABLET PO PRN (20:30)
[2019-08-14] MEDS ORDERED: ZOLPIDEM 5 MG TABLET PO PRN (20:30)
[2019-08-14] MEDS ORDERED: Z GUARD REMEDY PASTE 57 GM TUBE TOP PRN (20:30)
[2019-08-14 20:59] VITALS: BP 124/67
--- NOTE | 2019-08-14 21:15 | NUR ---
RECEIVED CALL FROM DR. ORTEZ. MD IS SCHEDULING PATIENT FOR INSERTION OF PEG PLACEMENT IN AM. IT WAS REPORTED IN SHIFT REPORT THAT PATIENT HAS A POLST DOCUMENTING, "DNR AND NO FEEDING TUBES, " BUT WAS REPORTED THAT WANTS TUBE PLACED. POLST IS NOTED IN CHART. NOTIFIED DR. MCDANIEL AND HE STATED HE WOULD TALK WITH THE IN THE AM PRIOR TO SURGERY. COMMUNITY ORGANIZATION DIRECTOR NOTIFIED. ALL NEEDS ATTENDED. WILL CONTINUE TO MONITOR AND ASSESS.
[2019-08-14] MEDS: IV D5 1/2 NS 1000 ML 1,000 ML IV PRN (21:30)
[2019-08-15] VITALS (10 sets, daily range): BP systolic 110–142; BP diastolic 60–74
--- NOTE | 2019-08-15 00:05 | NUR ---
PATIENT NPO ORDERED FOR AM GT-TUNE PLACEMENT. ALL NEEDS ATTENDED. WILL CONTINUE TO MONITOR NAD ASSESS.
--- NOTE | 2019-08-15 06:46 | NUR ---
PATIENT ASLEEP IN BED. ON TELE SR. VS WNL. KEPT NPO ORDERED FOR AM PROCEDURE. SURGERY CALLED AND REPORT GIVEN TO SURGERY RN. BED ALARM ON. ALL NEEDS ATTENDED. WILL CONTINUE TO MONITOR AND ASSESS.
--- NOTE | 2019-08-15 06:58 | NUR ---
SPOKE WITH PATIENTS , ILIANA. SHE WILL BE ON HER WAY TO THE HOSPITAL TO SPEAK WITH DR. MCDANIEL PRIOR TO SURGERY AND SIGN THE CONSENT. SECURITY MESSENGER NOTIFIED. SURGERY NURSE, DOROTHY NOTIFIED. ALL NEEDS ATTENDED.
[2019-08-15 07:12] LABS: BASOPHILS # (AUTO) 0.1 K/uL (0.0-8.0); EOSINOPHILS # (AUTO) 0.1 K/uL (0.0-0.7); EOSINOPHILS % (AUTO) 1.1 % (0.0-7.0); HEMATOCRIT 34.9 % (36.7-47.1); HEMOGLOBIN 11.7 g/dL (12.5-16.3); LYMPHOCYTES # (AUTO) 0.8 K/uL (20.0-40.0); LYMPHOCYTES % (AUTO) 8.5 % (20.5-51.5); MEAN CORPUSCULAR HGB CONC 34 g/dL (32.5-36.3); MEAN CORPUSCULAR VOLUME 101.4 fL (73.0-96.2); MONOCYTES # (AUTO) 0.8 K/uL (2.0-10.0); MONOCYTES % (AUTO) 8.1 % (0.0-11.0); NEUTROPHILS # (AUTO) 7.6 K/uL (1.8-8.9); NEUTROPHILS % (AUTO) 81.3 % (38.5-71.5); PLATELET COUNT (AUTO) 397 K/uL (152-348); RED BLOOD CELL COUNT(AUTO) 3.44 MIL/uL (4.06-5.63); WHITE BLOOD COUNT (AUTO) 9.4 K/uL (3.6-10.2)
[2019-08-15 07:27] LABS: CARBON DIOXIDE 26 mmol/L (21-32); CHLORIDE 109 mmol/L (98-107); CREATININE 0.8 mg/dL (0.6-1.3); GLUCOSE 78 mg/dL (74-106); POTASSIUM 3.3 mmol/L (3.5-5.1); UREA NITROGEN, BLOOD 9 mg/dL (7-18)
[2019-08-15] MEDS: PANTOPRAZOLE SODIUM 40 MG VIAL IV SCH (09:05)
--- NOTE | 2019-08-15 09:09 | NUR ---
PATIENT LEFT THE UNIT TO SURGERY WITH SURGERY NURSE STALIN
[2019-08-15] MEDS ORDERED: CLINDAMYCIN PHOSPHATE 600 MG/4 ML VIAL ONE (09:48)
[2019-08-15] MEDS ORDERED: MAGNESIUM HYDROXIDE 30 ML LIQUID UDC PEG PRN (11:37)
[2019-08-15] MEDS ORDERED: ZOLPIDEM 5 MG TABLET PEG PRN (11:37)
[2019-08-15] MEDS ORDERED: HYDROCODONE/APAP 5-325MG TABLET PEG PRN (11:37)
[2019-08-15] MEDS ORDERED: ACETAMINOPHEN 650 MG/20.3 ML LIQUID UDC PEG PRN (11:45)
--- NOTE | 2019-08-15 12:30 | NUR ---
PATIENT CAME BACK FROM SURGERY WITH REPORT RECEIVED FROM NURSE ALVAREZ THAT TUBE FEEDING WILL START TOMORROW 08/16 , WATER AND MEDICATIONS ADMINISTRATION CAN START AT 4PM TODAY.
--- NOTE | 2019-08-15 13:26 | NUR ---
WOUND CARE CONSULT: PT FOLLOWED BY PODIATRY FOR WOUND CARE. DEFER TO DPM FOR WOUND TREATMENT PLAN. DISCUSSED SKIN PROTECTION WITH NURSING STAFF. CURRENT OLVIN SCORE IS 15. WILL SEE PRN.
[2019-08-15] MEDS: MORPHINE SULFATE 2 MG/1 ML DISP.SYRIN IV PRN ×2 (13:36→20:08)
[2019-08-15] MEDS ORDERED: FUROSEMIDE 20 MG/2 ML VIAL IV ONE (14:00)
[2019-08-15] MEDS ORDERED: POTASSIUM CHLORIDE 20 MEQ POWDER PACKET GT ONE (16:00)
--- NOTE | 2019-08-15 18:25 | NUR ---
PATIENT IN BED RESTING WITH NO SOB NOTED AT THIS TIME. NO C/O PAIN AT THIS TIMES. KEPT CLEAN AND DRY AT ALL TIMES. PATIENT HAS GTUBE AND FUNCTIONAL WELL . CALL LIGHT WITHIN REACH AND WILL CONTINUE TO MONITOR.
--- NOTE | 2019-08-15 18:30 | NUR ---
received order from Dr. Munoz to start Gtube feeding for the patient jevity 1.2 30ml/hr.
[2019-08-15] MEDS ORDERED: JEVITY 1.2 1000 ML LIQUID GT PRN (19:30)
[2019-08-15] MEDS: IV D5 1/2 NS 1000 ML 1,000 ML IV PRN (22:55)
[2019-08-16 03:55] VITALS: BP 121/65
--- NOTE | 2019-08-16 06:37 | NUR ---
Patient is tolerating tube feeding well, no residual. Oral care was done, needed oral suctioning d/t mucus. Scrotal redness was documented and covered with Z-loy.
[2019-08-16 07:30] LABS: BASOPHILS # (AUTO) 0.1 K/uL (0.0-8.0); BASOPHILS % (AUTO) 0.4 % (0.0-2.0); EOSINOPHILS # (AUTO) 0.1 K/uL (0.0-0.7); EOSINOPHILS % (AUTO) 0.8 % (0.0-7.0); HEMATOCRIT 36.9 % (36.7-47.1); HEMOGLOBIN 12.1 g/dL (12.5-16.3); LYMPHOCYTES # (AUTO) 0.6 K/uL (20.0-40.0); LYMPHOCYTES % (AUTO) 4.3 % (20.5-51.5); MEAN CORPUSCULAR HEMOGLOBIN 33.3 uug (23.8-33.4); MEAN CORPUSCULAR HGB CONC 33 g/dL (32.5-36.3); MEAN CORPUSCULAR VOLUME 101.3 fL (73.0-96.2); MONOCYTES # (AUTO) 0.9 K/uL (2.0-10.0); MONOCYTES % (AUTO) 7.1 % (0.0-11.0); NEUTROPHILS # (AUTO) 11.6 K/uL (1.8-8.9); NEUTROPHILS % (AUTO) 87.4 % (38.5-71.5); PLATELET COUNT (AUTO) 415 K/uL (152-348); RED BLOOD CELL COUNT(AUTO) 3.64 MIL/uL (4.06-5.63); WHITE BLOOD COUNT (AUTO) 13.3 K/uL (3.6-10.2)
[2019-08-16 07:55] LABS: BILIRUBIN,TOTAL 0.5 mg/dL (0.2-1.0); CREATININE 0.8 mg/dL (0.6-1.3); MAGNESIUM 1.9 mg/dL (1.8-2.4); TOTAL PROTEIN, SERUM 5.3 g/dL (6.4-8.2)
[2019-08-16] MEDS: PANTOPRAZOLE SODIUM 40 MG VIAL IV SCH (08:06)
[2019-08-16 08:10] LABS: POTASSIUM 3.2 mmol/L (3.5-5.1)
[2019-08-16] MEDS: PANTOPRAZOLE ORAL SUSPENSION 40 MG SUSPDR.PKT GT SCH (09:15)
[2019-08-16] MEDS: MORPHINE SULFATE 2 MG/1 ML DISP.SYRIN IV PRN ×3 (09:27→19:40)
[2019-08-16] MEDS: PROTEIN SUPPLEMENT (PROSTAT) 30 ML LIQUID GT SCH ×2 (10:25→12:24)
[2019-08-16] MEDS: ACIDOPHILUS/BULGARICUS CHEW TAB GT SCH ×2 (10:25→21:01)
[2019-08-16 11:15] VITALS: BP 109/57
[2019-08-16 11:19] LABS: PHOSPHOROUS 5.5 mg/dL (2.5-4.9)
--- NOTE | 2019-08-16 13:02 | NUR ---
Assessed by fisheries inspector. Recommends increase tube feeding rate as tolerated 10 mL/hr until goal rate of 65mL/hr is met.
[2019-08-16 15:19] VITALS: BP 96/60
[2019-08-16] MEDS: POTASSIUM CHLORIDE 50 ML IV SCH ×4 (18:03→21:51)
--- NOTE | 2019-08-16 18:55 | NUR ---
PATIENT IN BED RESTING KEPT CLEAN AND DRY AT ALL TIMES, NO SOB NOTED AND NO PAIN NOTED AT THIS TIME. CALL LIGHT WITHIN REACH. WILL CONTINUE TO MONITOR.
--- NOTE | 2019-08-16 20:00 | NUR ---
RECEIVED PATIENT ASLEEP IN BED, WITH SON AT BEDSIDE. EASILY AROUSABLE. PATIENT IS A/O X2. GT FEEDING INFUSING WELL. PATIENT APPEARS TO BE TOLERATING WELL AT THIS TIME. NO RESILDUAL NOTED. NO C/O NAUSEA OR VOMITING. GT FEEDING INCREASE TO 40CC. IVF INFUSING WELL TO RIGHT WRIST. ON O2 2L NC SATING WELL. VS WNL. BED ALARM ON. CALL LIGHT IN REACH. WILL CONTINUE TO MONITOR AND ASSESS.
[2019-08-16 20:30] VITALS: BP 97/50
[2019-08-16] MEDS ORDERED: [UNRECOGNIZED DRUG - OTHER] PO SCH (21:00)
[2019-08-16] MEDS ORDERED: TAMSULOSIN HCL 0.4 MG CAP.SR.24H PO SCH (21:00)
[2019-08-16] MEDS: LEVETIRACETAM 500 MG TABLET GT SCH (21:01)
[2019-08-17] MEDS: IV D5 1/2 NS 1000 ML 1,000 ML IV PRN (00:53)
[2019-08-17 06:22] VITALS: BP 110/54
[2019-08-17 06:42] LABS: BASOPHILS % (AUTO) 0.5 % (0.0-2.0); EOSINOPHILS # (AUTO) 0.1 K/uL (0.0-0.7); EOSINOPHILS % (AUTO) 1.4 % (0.0-7.0); HEMATOCRIT 33.1 % (36.7-47.1); LYMPHOCYTES # (AUTO) 0.5 K/uL (20.0-40.0); LYMPHOCYTES % (AUTO) 5.1 % (20.5-51.5); MEAN CORPUSCULAR HEMOGLOBIN 33.6 uug (23.8-33.4); MEAN CORPUSCULAR HGB CONC 33 g/dL (32.5-36.3); MEAN CORPUSCULAR VOLUME 100.7 fL (73.0-96.2); MONOCYTES # (AUTO) 0.8 K/uL (2.0-10.0); MONOCYTES % (AUTO) 7.9 % (0.0-11.0); NEUTROPHILS # (AUTO) 8.3 K/uL (1.8-8.9); NEUTROPHILS % (AUTO) 85.1 % (38.5-71.5); PLATELET COUNT (AUTO) 310 K/uL (152-348); RED BLOOD CELL COUNT(AUTO) 3.29 MIL/uL (4.06-5.63); WHITE BLOOD COUNT (AUTO) 9.8 K/uL (3.6-10.2)
[2019-08-17 07:05] LABS: BILIRUBIN,TOTAL 0.4 mg/dL (0.2-1.0); CREATININE 0.8 mg/dL (0.6-1.3); MAGNESIUM 1.9 mg/dL (1.8-2.4); POTASSIUM 3.9 mmol/L (3.5-5.1); TOTAL PROTEIN, SERUM 4.7 g/dL (6.4-8.2)
--- NOTE | 2019-08-17 08:30 | NUR ---
Patient received to care, resting in bed, no distress noted. IV NS running at 45 cc/h. GT feeding is running at 50 cc/hr. Pt is having Oxygen therapy at 2 lmp. Pt is oriented x2-3. Pt is dosing on and off, wakes up easily. No distress noted. Medications given via GT.
[2019-08-17] MEDS ORDERED: AMIODARONE HCL 200 MG TABLET GT SCH (09:00)
[2019-08-17] MEDS: PANTOPRAZOLE ORAL SUSPENSION 40 MG SUSPDR.PKT GT SCH (09:29)
[2019-08-17] MEDS: LEVETIRACETAM 500 MG TABLET GT SCH (09:29)
[2019-08-17] MEDS: ACIDOPHILUS/BULGARICUS CHEW TAB GT SCH (09:36)
[2019-08-17] MEDS: JEVITY 1.2 1000 ML LIQUID GT PRN ×2 (11:19→18:09)
[2019-08-17 11:44] VITALS: BP 100/69
--- NOTE | 2019-08-17 14:21 | NUR ---
Nutrition consult for low alb Pt has been following by dietitian. Labs reviewed. 08/17: alb 1.5L Spoke to RN, nurse concerns of low albumin, alb dropped. Pt is on Jevity 1.2 and recently reaches goal rate with IV fluid @ 45 ml/hr. Dietitian's Recommendation: -Current feeding regimen: Jevity 1.2 @ 65 mL/hr x 22. At goal provides 1716 kcal, 79 gm protein, 1154 mL free water daily. Meets ~100% of est. energy and protein. 29 kcal/kg, 1.3 gm protein/kg -Rec Prostat 1 pk BID for 5 days (extra 30 gm protein per day) Addendum: 08/17/19 at [address] Amended: Links added.
[2019-08-17] MEDS: MORPHINE SULFATE 2 MG/1 ML DISP.SYRIN IV PRN (14:38)
[2019-08-17 15:22] VITALS: BP 108/57
[2019-08-17] MEDS ORDERED: PROTEIN SUPPLEMENT (PROSTAT) 30 ML LIQUID GT SCH (17:00)
[2019-08-17] MEDS ORDERED: EPHEDRINE SULFATE 50 MG/ML AMPUL IM ONE (18:09)
[2019-08-17] MEDS ORDERED: LIDOCAINE-MPF 2% 5 ML VIAL IJ ONE (18:09)
[2019-08-17] MEDS ORDERED: PROPOFOL 200 MG/20 ML BOTTLE IV ONE (18:09)
[2019-08-17] MEDS ORDERED: IV NORMAL SALINE 1000 ML BAG IV ONE (18:09)
[2019-08-17] MEDS ORDERED: IRR STERIL WATER FOR IRR 1000 ML BOTTLE IR ONE (18:09)
--- NOTE | 2019-08-17 18:10 | NUR ---
Pt is being discharged to [facility]. Pt is aware and willing to go. VS are stable. Report was given to HADLEY Anderson. Pt's home medication was returned to his . Pt was sent with two bottles of Jevity. No distress.
== END 2019-08-17 18:10 | DRG 640 ==
LOC: ER 15:54 → TELE3 18:24 → MEDSURG3 08-16 11:03
PROVIDERS: ADMIT Student in an Organized Health Care Education/Training Program; ATTEND Student in an Organized Health Care Education/Training Program
PROC: 0DH63UZ Insertion of Feeding Device into Stomach, Percutaneous Approach (ICD-10-PCS; principal; 2019-08-15)
DX: R62.7 Adult failure to thrive (principal); E43 Unspecified severe protein-calorie malnutrition; I50.33 Acute on chronic diastolic (congestive) heart failure; J98.11 Atelectasis; C71.9 Malignant neoplasm of brain, unspecified; D68.59 Other primary thrombophilia; K21.9 Gastro-esophageal reflux disease without esophagitis; Z74.09 Other reduced mobility; I48.91 Unspecified atrial fibrillation; D63.8 Anemia in other chronic diseases classified elsewhere; E78.5 Hyperlipidemia, unspecified; Z87.01 Personal history of pneumonia (recurrent); Z66 Do not resuscitate; M20.42 Other hammer toe(s) (acquired), left foot; M20.41 Other hammer toe(s) (acquired), right foot; S90.01XA Contusion of right ankle, initial encounter; X58.XXXA Exposure to other specified factors, initial encounter; Y92.129 Unspecified place in nursing home as the place of occurrence of the external cause; L89.516 Pressure-induced deep tissue damage of right ankle; N40.0 Benign prostatic hyperplasia without lower urinary tract symptoms; K44.9 Diaphragmatic hernia without obstruction or gangrene; Z79.899 Other long term (current) drug therapy; R47.02 Dysphasia; D69.59 Other secondary thrombocytopenia; R13.10 Dysphagia, unspecified; R73.03 Prediabetes; G90.8 Other disorders of autonomic nervous system; M51.34 Other intervertebral disc degeneration, thoracic region; J45.909 Unspecified asthma, uncomplicated
CPT/HCPCS: 36415; 70030-TC; 71045; 74150; 83690; 83735; 84100; 85025; 85730; 93005; A4217; A4663; C9113; G0378; J1940; J2270; J2405; J3480; J3490; J7030; J7050

== ENCOUNTER 2019-08-22 01:40 | Inpatient (IN) | payer BC ==
[~2019-08-22] VITALS: Ht 180.3 cm; Wt 59.0 kg
[2019-08-22] VITALS (14 sets, daily range): BP systolic 94–165; BP diastolic 52–90
[~2019-08-22 01:40] MED LIST changes: -ACET100V5 NEB; -ACET325T53 PO; +ACET650S26 PEG; +ACID1TAB4 GT; -ALBU1.25 NEB; -AMIO100T4 PO; +AMIO200T6 GT; -AMIO200T6 PO; -ASCO500C16 PO; -BISA10SU12 RC; -BISA5TAB13 PO; -Benzocaine/Menth/Cetylpyrd Cl MM; -CARV6.25 PO; -CARV6.252 PO; -CEFE1PIG3 IV; -CHLO473M7 MM; -CLOT10TR6 MM; -DEXA1TAB2 PO; -DOCU100C36 PO; -GUAI5SYR4 PO; -GUAI600T53 PO; +HYDR-3972 PEG; -HYDR-3972 PO; -IPRA0.2S6 NEB; +IPRA3AMP23 IH; +LACT-209 GT; +LEVE500T9 GT; -LEVE500T9 PO; +MAGN400O6 PEG; -MAGN400O6 PO; -METH4TAB3 PO; -ONDA8TAB6 PO; +PANT40SU2 GT; -PANT40TA2 PO; -POLY17PO4 PO; -ROSU5TAB PO; -SUCR1TAB31 PO; +ZOLP5TAB8 PEG; +[UNRECOGNIZED DRUG - CODE] PO
[2019-08-22] MEDS ORDERED: ALBUTEROL SULFATE 2.5 MG/3 ML NEBU ONE ×2 (01:56→03:12)
[2019-08-22] MEDS ORDERED: ALBUTEROL SULFATE 2.5 MG/3 ML NEBU NEB ONE ×2 (02:00→03:00)
--- NOTE | 2019-08-22 02:00 | NUR ---
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 Patient upon arrival agitated, on non rebreather mask satting at 95% with room air satting at 85%. Arrived with 24G on left forearm and g-tube. Patient A/Ox1. Dr Ross into eval patient.
[2019-08-22] MEDS ORDERED: NA P133E RC (02:02)
[2019-08-22] MEDS ORDERED: MULT1TAB11 PEG (02:04)
[2019-08-22] MEDS ORDERED: ASCO-340 PEG (02:04)
[2019-08-22] MEDS ORDERED: BISA10SU95 RC (02:04)
[2019-08-22 02:09] LABS: BASOPHILS # (AUTO) 0.1 K/uL (0.0-8.0); BASOPHILS % (AUTO) 0.6 % (0.0-2.0); EOSINOPHILS # (AUTO) 0.1 K/uL (0.0-0.7); EOSINOPHILS % (AUTO) 0.8 % (0.0-7.0); HEMATOCRIT 33.7 % (36.7-47.1); HEMOGLOBIN 11.3 g/dL (12.5-16.3); LYMPHOCYTES # (AUTO) 0.6 K/uL (20.0-40.0); LYMPHOCYTES % (AUTO) 7.7 % (20.5-51.5); MEAN CORPUSCULAR HEMOGLOBIN 33.3 uug (23.8-33.4); MEAN CORPUSCULAR HGB CONC 34 g/dL (32.5-36.3); MEAN CORPUSCULAR VOLUME 99.3 fL (73.0-96.2); MONOCYTES # (AUTO) 0.8 K/uL (2.0-10.0); MONOCYTES % (AUTO) 9.8 % (0.0-11.0); NEUTROPHILS # (AUTO) 6.8 K/uL (1.8-8.9); NEUTROPHILS % (AUTO) 81.1 % (38.5-71.5); PLATELET COUNT (AUTO) 318 K/uL (152-348); WHITE BLOOD COUNT (AUTO) 8.3 K/uL (3.6-10.2)
[2019-08-22 02:15] LABS: CREATININE 0.7 mg/dL (0.6-1.3); POTASSIUM 4.6 mmol/L (3.5-5.1)
[2019-08-22 02:29] LABS: BILIRUBIN,DIRECT 0.3 mg/dL (0.0-0.2); BILIRUBIN,TOTAL 0.5 mg/dL (0.2-1.0); TOTAL PROTEIN, SERUM 5.9 g/dL (6.4-8.2)
[2019-08-22] MEDS ORDERED: IMIPENEM/CILASTATIN SODIUM 1,000 MG in IV NORMAL SALINE 250 ML IV ONE (02:30)
[2019-08-22] MEDS ORDERED: MEROPENEM 1GM/NS 100ML IVPB **ER PYXIS ONLY IV ONE (02:40)
--- NOTE | 2019-08-22 02:42 | NUR ---
Patient sleeping on gurny with 5Liter via simple mask satting at 98%. No distress noted.
--- NOTE | 2019-08-22 02:48 | NUR ---
Patient awake, agitated and wheezing. Dr Ross into re eval patient.
[2019-08-22] MEDS ORDERED: IPRATROPIUM BROMIDE 0.5 MG/2.5 ML NEBU NEB ONE (03:00)
[2019-08-22] MEDS ORDERED: MEROPENEM 1,000 MG in IV NORMAL SALINE 250 ML IV ONE (03:00)
--- NOTE | 2019-08-22 03:00 | NUR ---
Paged Epic panel shoulder boner. Waiting for Trish DAIGLE shoulder boner for [facility].
[2019-08-22] MEDS: IV NORMAL SALINE 1000 ML BAG IV ONE ×2 (03:01→03:12)
--- NOTE | 2019-08-22 03:04 | NUR ---
RT into placed Bipap on patient as Dr Ross ordered.
--- NOTE | 2019-08-22 03:05 | NUR ---
Patient satting at 97% with Bipap. setting 108/5 with rate of 20 at 100% O2.
--- NOTE | 2019-08-22 03:05 | NUR ---
Due to MD order pt placed on BiPAP with the following settings of I-10, E-5, PS-5, RR-20, FIO2-100%. In-line HHN tx given. Pt tachypneic and tachycardic. Pt wants BiPAP mask to be off.
[2019-08-22] MEDS ORDERED: IPRATROPIUM BROMIDE 0.5 MG/2.5 ML NEBU ONE (03:12)
--- NOTE | 2019-08-22 03:13 | NUR ---
Dr Ross speaking with Trish DAIGLE occupational therapy manager for [facility].
[2019-08-22 03:47] LABS: ABG BASE EXCESS -1.1 mmol/L; ABG HCO3 21.3 mmol/L; ABG PCO2 28.1 mmHg (35.0-45.0); ABG PH 7.497 (7.350-7.450); ABG SITE RIGHT RADIAL; COHb 0.6 % (0.5-1.5); CPAP,BG 10 cmH20; MetHb 0.4 % (0.0-1.5); O2Hb 98.7 % (94.0-97.0); VENT MODE BIPAP
--- NOTE | 2019-08-22 03:51 | NUR ---
ABG PO2 is 425. Dr Ross aware. RT decrease O2 to 50% as ordered by Dr Ross
--- NOTE | 2019-08-22 03:52 | NUR ---
After ABG result, lower FIO2 to 50%, DR Ross aware.
[2019-08-22] MEDS ORDERED: MAGNESIUM HYDROXIDE 30 ML LIQUID UDC PO PRN (04:45)
[2019-08-22] MEDS ORDERED: Z GUARD REMEDY PASTE 57 GM TUBE TOP PRN ×2 (04:45→06:15)
[2019-08-22] MEDS ORDERED: HYDROCODONE/APAP 5-325MG TABLET PO PRN (04:45)
--- NOTE | 2019-08-22 05:00 | NUR ---
received from ER dx: sob,sepsis ,pna ,respiratory failure . patient was on mask mask/NON REBREATHER MASK at 15 liters rr 20 to 25 saturation 96%,patient very anxious and unable to follow commands ,came with bilateral mittens .connected to monitor ,changed soiled linens and gown . incontinent of urine and place f/c send urine for urinalysis and urine for culture . placed soft wrist restraints with mittens still able to reach for the f/c .photo taken on patient skin injury photo in chart . patient sherry came and as per patient is DNR /DNI /COMFORT MEASURES /NO ARTIFICIAL MEANS OF NUTRITION ,POLST IN THE CHART .
--- NOTE | 2019-08-22 06:00 | NUR ---
turned and reposition patient . respiratory therapsit placed aptient now on 02 at 3 liters /min . saturation 93 to 94% ,hob up . kept npo .
[2019-08-22] MEDS: IV D5 1/2 NS 1000 ML 1,000 ML IV PRN (06:39)
[2019-08-22] MEDS ORDERED: PANTOPRAZOLE SODIUM 40 MG TABLET.DR PO SCH (07:00)
[2019-08-22] MEDS: ALBUTEROL SULFATE 2.5 MG/3 ML NEBU NEB SCH ×4 (08:07→19:48)
[2019-08-22] MEDS: IPRATROPIUM BROMIDE 0.5 MG/2.5 ML NEBU NEB SCH ×4 (08:07→19:48)
[2019-08-22 08:17] LABS: *BILIRUBIN,URIN NEGATIVE (NEGATIVE); *BLOOD, URINE NEGATIVE (NEGATIVE); *CLARITY,URINE CLEAR (CLEAR); *COLOR,URINE YELLOW (YELLOW); *KETONES,URINE NEGATIVE (NEGATIVE); *UROBILINOGEN,URINE 0.2 E.U./dl (NORMAL); LEUKOCYTE ESTERASE ,URINE NEGATIVE (NEGATIVE); NITRITE, URINE NEGATIVE (NEGATIVE); PH,URINE 7.5 (5.0-8.0); UGLUCOSE NEGATIVE (NEGATIVE)
[2019-08-22] MEDS ORDERED: levETIRAcetam 500 MG TABLET GT SCH (09:00)
[2019-08-22] MEDS ORDERED: Medication Not On Formulary EA (Ascorbate Calcium (Vitamin C TAB) 500 MG) PEG SCH (09:00)
--- NOTE | 2019-08-22 09:00 | NUR ---
DOCTOR CALDERÓN IN THE UNIT FOR NEW CONSULT WITH PATIENT. ORDERS PLACED AND SPOKE TO THE FAMILY. INFORMED DOCTOR CALDERÓN THAT THERE WAS DISCUSSION OF POSSIBLE HOSPICE.
[2019-08-22] MEDS: MORPHINE SULFATE 2 MG/1 ML DISP.SYRIN IV PRN (09:04)
[2019-08-22] MEDS: ACETAMINOPHEN 325 MG TABLET PO PRN (09:07)
[2019-08-22] MEDS: AMIODARONE HCL 200 MG TABLET GT SCH (09:08)
[2019-08-22] MEDS: ASCORBIC ACID 500 MG TABLET PEG SCH (09:08)
[2019-08-22] MEDS: PANTOPRAZOLE ORAL SUSPENSION 40 MG SUSPDR.PKT PEG SCH (09:09)
[2019-08-22] MEDS: ENOXAPARIN SODIUM 40 MG/0.4 ML DISP.SYRIN SQ SCH (09:11)
[2019-08-22] MEDS: Z GUARD REMEDY PASTE 57 GM TUBE TOP SCH ×2 (09:12→20:42)
--- NOTE | 2019-08-22 11:15 | NUR ---
DR VALENCIA IN THE UNIT DISCUSSING PROGNOSIS OF THE PATIENT WITH AND SON. WILL CONTINUE CARE AND TREATMENT. DOWNGRADED TO TELE.
[2019-08-22] MEDS: methylPREDNISolone SOD SUCC 40 MG/ML VIAL IV SCH ×3 (12:27→21:52)
[2019-08-22] MEDS: HYDROCODONE/APAP 5-325MG TABLET PEG PRN ×2 (12:27→21:06)
[2019-08-22] MEDS: MEROPENEM 1 G in IV NORMAL SALINE 100 ML IV SCH ×2 (12:28→20:42)
[2019-08-22] MEDS: levETIRAcetam 500 MG/5 ML LIQUID UDC PEG SCH ×2 (12:28→20:42)
[2019-08-22] MEDS ORDERED: SUCR1ORA GT (15:05)
[2019-08-22] MEDS ORDERED: ROSU5TAB PO (15:05)
[2019-08-22] MEDS ORDERED: MISCELLANEOUS MED XX PRN (15:15)
[2019-08-22] MEDS: SUCRALFATE 1 G TABLET PO SCH (17:54)
[2019-08-22] MEDS: TAMSULOSIN HCL 0.4 MG CAP.SR.24H PO SCH (20:44)
[2019-08-22] MEDS ORDERED: [UNRECOGNIZED DRUG - OTHER] PO SCH (21:00)
[2019-08-23] VITALS (11 sets, daily range): BP systolic 107–133; BP diastolic 57–73
[2019-08-23] MEDS: MEROPENEM 1 G in IV NORMAL SALINE 100 ML IV SCH ×3 (03:05→18:07)
[2019-08-23] MEDS: HYDROCODONE/APAP 5-325MG TABLET PEG PRN ×2 (03:10→18:06)
[2019-08-23 05:04] LABS: BASOPHILS % (AUTO) 0.1 % (0.0-2.0); HEMATOCRIT 28.6 % (36.7-47.1); HEMOGLOBIN 9.7 g/dL (12.5-16.3); LYMPHOCYTES # (AUTO) 0.3 K/uL (20.0-40.0); LYMPHOCYTES % (AUTO) 3.6 % (20.5-51.5); MEAN CORPUSCULAR HEMOGLOBIN 33.3 uug (23.8-33.4); MEAN CORPUSCULAR HGB CONC 34 g/dL (32.5-36.3); MEAN CORPUSCULAR VOLUME 98.5 fL (73.0-96.2); MONOCYTES # (AUTO) 0.3 K/uL (2.0-10.0); MONOCYTES % (AUTO) 3.6 % (0.0-11.0); NEUTROPHILS # (AUTO) 6.7 K/uL (1.8-8.9); NEUTROPHILS % (AUTO) 92.7 % (38.5-71.5); PLATELET COUNT (AUTO) 307 K/uL (152-348); WHITE BLOOD COUNT (AUTO) 7.2 K/uL (3.6-10.2)
[2019-08-23] MEDS: IV D5 1/2 NS 1000 ML 1,000 ML IV PRN ×2 (05:10→23:43)
[2019-08-23 05:14] LABS: BILIRUBIN,TOTAL 0.4 mg/dL (0.2-1.0); CREATININE 0.7 mg/dL (0.6-1.3); MAGNESIUM 2.3 mg/dL (1.8-2.4); POTASSIUM 4.6 mmol/L (3.5-5.1); TOTAL PROTEIN, SERUM 4.9 g/dL (6.4-8.2)
[2019-08-23] MEDS: methylPREDNISolone SOD SUCC 40 MG/ML VIAL IV SCH ×2 (06:08→20:43)
[2019-08-23] MEDS: PANTOPRAZOLE ORAL SUSPENSION 40 MG SUSPDR.PKT PEG SCH (06:09)
[2019-08-23] MEDS: ALBUTEROL SULFATE 2.5 MG/3 ML NEBU NEB SCH ×4 (07:27→21:02)
[2019-08-23] MEDS: IPRATROPIUM BROMIDE 0.5 MG/2.5 ML NEBU NEB SCH ×4 (07:27→21:02)
--- NOTE | 2019-08-23 07:30 | NUR ---
had uneventful night, pt doesn't like to be bothered in any way
--- NOTE | 2019-08-23 07:30 | NUR ---
RECIEVED PT LYING IN BED, VERY SOUND ASLEEP. AOURABLE TO CALL. OPENS EYES AND VERBALLY RESPONSIVE. SPEECH IS SOMEWHAT SLUGGISH BECAUSE OF THE DRY MOUTH OTHERWISE CLEAR. GENERALLY VERY WEAK IN ALL EXTREMETIES. PT IS SKINNY, STILL NPO. HR IS SR WITH OCCASSIONAL PVC. DENIES ANY CP. O2 ON 3LNC. NO APPARENT RESPIRATORY DISTRESS NOTED. PT OCCASSIONALLY COUGHS BUT NON PRODUCTIVE. LUNGS ARE CLEAR. AFEBRILE. PT HAS GENERALIZED BODY ACHES AND PAINS ALL OVER WHEN BEING TURNED.
[2019-08-23] MEDS: AMIODARONE HCL 200 MG TABLET GT SCH (09:46)
[2019-08-23] MEDS: ASCORBIC ACID 500 MG TABLET PEG SCH (09:46)
[2019-08-23] MEDS: levETIRAcetam 500 MG/5 ML LIQUID UDC PEG SCH ×2 (09:46→20:44)
[2019-08-23] MEDS: Z GUARD REMEDY PASTE 57 GM TUBE TOP SCH ×2 (09:47→21:53)
[2019-08-23] MEDS: ENOXAPARIN SODIUM 40 MG/0.4 ML DISP.SYRIN SQ SCH (09:48)
--- NOTE | 2019-08-23 10:30 | NUR ---
SEEN AND EXAMINED BY DR SHARMA WITH NEW ORDERS. PT HAS A PEG, CLEAN AND INTACT AROUND THE SITE. CHECKED GOOD PLACEMENT. MAIN IVF IS D5 1/2 NS AT 50ML/HR INFUSING WELL VIA THE RIGHT AC G20.
--- NOTE | 2019-08-23 15:30 | NUR ---
TUBE FEEDING STARTED VIA PEG, GLUCERNA 1.2 START RATE IS 20ML/HR WITH A GOAL RATE OF 70ML/HR ORDERED.
[2019-08-23] MEDS: SUCRALFATE 1 G TABLET PO SCH (17:32)
--- NOTE | 2019-08-23 18:30 | NUR ---
PT C/O GENERALIZED BODY ACHES AND PAINS. MEDICATED WITH NORCO 1 TAB VIA PEG.
--- NOTE | 2019-08-23 19:30 | NUR ---
received patient awake , confused , iv of d5 14 ns at 50 ml , gt glucerna at 20 ml , no residual , venegas intact , iv intact
[2019-08-23] MEDS: TAMSULOSIN HCL 0.4 MG CAP.SR.24H PO SCH (20:43)
[2019-08-23] MEDS: ATORVASTATIN 10 MG TABLET PO SCH (21:53)
--- NOTE | 2019-08-23 22:28 | NUR ---
* Helps perform self care activities * Maintains maximum range of motion * Regains muscle mass and strength * Maintains vital signs WNL during activity Addendum: 08/23/19 at 8 by REDD GOTTI RN Amended: Eve horner. Addendum: 08/23/19 at 2227 by REDD GOTTI RN Amended: Eve horner. Addendum: 08/23/19 at 2228 by REDD GOTTI RN Amended: Links added. Addendum: 08/23/19 at 2229 by REDD GOTTI RN Amended: Links added.
--- NOTE | 2019-08-23 22:28 | NUR ---
* Maintains baseline ABG's * Evidences usual mental status Addendum: 08/23/19 at 2228 by REDD GOTTI RN Amended: Eve horner. Addendum: 08/23/19 at 8 by REDD GOTTI RN Amended: Eve horner. Addendum: 08/23/19 at 2229 by REDD GOTTI RN Amended: Links added. Addendum: 08/23/19 at 2229 by REDD GOTTI RN Amended: Links added.
--- NOTE | 2019-08-23 22:28 | NUR ---
* Maintains vital signs WNL Addendum: 08/23/19 at 2228 by REDD GOTTI RN Amended: Eve horner. Addendum: 08/23/19 at 2229 by REDD GOTTI RN Amended: Eve horner. Addendum: 08/23/19 at 2229 by REDD GOTTI RN Amended: Links added.
--- NOTE | 2019-08-23 22:29 | NUR ---
Understands anatomy and physiology * Describes reportable s/s * Understands treatment plan * Understands medication regime Addendum: 08/23/19 at 2229 by REDD GOTTI RN Amended: Links added.
--- NOTE | 2019-08-23 22:29 | NUR ---
* Maintains vital signs WNL * Maintains optimal lab values Addendum: 08/23/19 at 2229 by REDD GOTTI RN Amended: Eve horner. Addendum: 08/23/19 at 2229 by REDD GOTTI RN Amended: Eve horner.
[2019-08-23] MEDS: MORPHINE SULFATE 2 MG/1 ML DISP.SYRIN IV PRN (22:38)
--- NOTE | 2019-08-23 23:10 | NUR ---
feeding was increased at 30 ml / hr glucerna 1/2 no residual , no siezure note d
[2019-08-24] VITALS (8 sets, daily range): BP systolic 107–142; BP diastolic 63–83
--- NOTE | 2019-08-24 | NUR ---
awake , unable to follow command , confused , no distress , gt intact
--- NOTE | 2019-08-24 02:07 | NUR ---
sleeping comfortably , gt feeding , tolerating well at 30 ml/hr , no distress , no fever , n seizure noted
[2019-08-24] MEDS: HYDROCODONE/APAP 5-325MG TABLET PEG PRN ×2 (02:31→21:06)
[2019-08-24] MEDS: MEROPENEM 1 G in IV NORMAL SALINE 100 ML IV SCH ×3 (02:32→19:25)
[2019-08-24 05:09] LABS: CREATININE 0.7 mg/dL (0.6-1.3); MAGNESIUM 2.3 mg/dL (1.8-2.4); PHOSPHOROUS 4.1 mg/dL (2.5-4.9); POTASSIUM 4.2 mmol/L (3.5-5.1)
[2019-08-24 05:18] LABS: HEMATOCRIT 33.5 % (36.7-47.1); HEMOGLOBIN 11.1 g/dL (12.5-16.3); LYMPHOCYTES # (AUTO) 0.3 K/uL (20.0-40.0); LYMPHOCYTES % (AUTO) 2.6 % (20.5-51.5); MEAN CORPUSCULAR HEMOGLOBIN 32.7 uug (23.8-33.4); MEAN CORPUSCULAR HGB CONC 33 g/dL (32.5-36.3); MEAN CORPUSCULAR VOLUME 98.8 fL (73.0-96.2); MONOCYTES # (AUTO) 0.6 K/uL (2.0-10.0); MONOCYTES % (AUTO) 5.2 % (0.0-11.0); NEUTROPHILS # (AUTO) 10.8 K/uL (1.8-8.9); NEUTROPHILS % (AUTO) 92.2 % (38.5-71.5); PLATELET COUNT (AUTO) 386 K/uL (152-348); RED BLOOD CELL COUNT(AUTO) 3.39 MIL/uL (4.06-5.63); WHITE BLOOD COUNT (AUTO) 11.7 K/uL (3.6-10.2)
--- NOTE | 2019-08-24 06:00 | NUR ---
REPORT GIVEN TO EVAN , PATIENT IS AWAKE , CONFUSED , GT FEEDING AT 30 ML /HR GOAL OF 70 ML/HR , X 20 HOURS , IV OF D5 1/2 NS AT 50 ML , OXYGEN 3 L NC , PARRA CATHETER DNR , DNI
--- NOTE | 2019-08-24 06:00 | NUR ---
GT WAS CLAMPED . RESTING COMFORTABLY , NO DISTRESS
[2019-08-24] MEDS: PANTOPRAZOLE ORAL SUSPENSION 40 MG SUSPDR.PKT PEG SCH (06:06)
[2019-08-24] MEDS: LEVOTHYROXINE SODIUM 25 MCG TABLET PO SCH (06:06)
--- NOTE | 2019-08-24 06:35 | NUR ---
Patient transferred from ICU to tele room 302. Patient AAOx1 only. On O2 at 3LPM via NC in place. No signs or symptoms of pain or SOB at this time. NSR on tele at 67/min. IV site on right AC and left hand intact and patent. IVF infusing. GT tube intact and patent. Padron catheter intact and draining via gravity. Safety measure initiated and call kay within reached.
--- NOTE | 2019-08-24 06:47 | NUR ---
PATIENT WAS TRANSFERRED TO ROOM 302 , NO BELONGINGS
[2019-08-24] MEDS ORDERED: PANTOPRAZOLE SODIUM 40 MG TABLET.DR PO SCH (07:00)
--- NOTE | 2019-08-24 08:00 | NUR ---
RECEIVED PT RESTING IN BED. IVF RUNNING. NO ACUTE DISTRESS OR SOB NOTED. PT ON O2 @ 2L/M VIA N/C WITH SATS OF 94%. BED LOCKED AND IN LOW POSITION. CALL LIGHT WITHIN REACH. PT ON TELE MONITORING SINUS RHYTHM. WILL CONTINUE TO MONITOR FOR SAFETY AND COMFORT.
[2019-08-24] MEDS: ALBUTEROL SULFATE 2.5 MG/3 ML NEBU NEB SCH ×4 (08:27→21:30)
[2019-08-24] MEDS: IPRATROPIUM BROMIDE 0.5 MG/2.5 ML NEBU NEB SCH ×4 (08:27→21:30)
[2019-08-24] MEDS: GLUCERNA 1.2 1000ML LIQUID GT PRN (10:27)
--- NOTE | 2019-08-24 10:30 | NUR ---
GLUCERNA 1.2 STARTED @ 2O ML/HR. G TUBE PLACEMENT CHECKED, 0 RESIDUAL. TOLERATING WELL. MEDS GIVEN VIA G TUBE.
[2019-08-24] MEDS: ENOXAPARIN SODIUM 40 MG/0.4 ML DISP.SYRIN SQ SCH (10:40)
[2019-08-24] MEDS: ASCORBIC ACID 500 MG TABLET PEG SCH (10:42)
[2019-08-24] MEDS: AMIODARONE HCL 200 MG TABLET GT SCH (10:42)
[2019-08-24] MEDS: methylPREDNISolone SOD SUCC 40 MG/ML VIAL IV SCH ×2 (10:43→21:21)
[2019-08-24] MEDS: levETIRAcetam 500 MG/5 ML LIQUID UDC PEG SCH ×2 (10:44→21:05)
[2019-08-24] MEDS: MORPHINE SULFATE 2 MG/1 ML DISP.SYRIN IV PRN (10:57)
[2019-08-24] MEDS: Z GUARD REMEDY PASTE 57 GM TUBE TOP SCH ×2 (11:00→21:32)
--- NOTE | 2019-08-24 14:56 | NUR ---
Glucerna increased to 30 ml/hr. Will continue to monitor.
--- NOTE | 2019-08-24 16:40 | NUR ---
PT TRANSPORTED TO [facility] FOR MRI PROCEDURE. R AC AND L F/S IV LINES REMOVED DUE TO INFILTRATION PT HANDLED SITES DUE TO HAND MITTENS REMOVAL. FAMILY AT BEDSIDE. INFORMED FAMILY OF THE IMPORTANCE TO KEEP HAND MITTENS ON. L AC 22 GAUGE IV PLACED. INTACT AND FLUSHING. CONSENT, MRI CHECK LIST AND TICKET TO RIDE GIVEN TO TRANSPORT STAFF. Addendum: 08/24/19 at 1716 by BRENDA VASQUEZ RN PARRA BAG EMPTIED 750 CC. YELLOW CLEAR URINE. 127 CC G TUBE FEEDING.
[2019-08-24] MEDS ORDERED: GADOTERIDOL 279.3 MG/ML, 15 ML VIAL ONE (16:46)
[2019-08-24] MEDS: SUCRALFATE 1 G TABLET PO SCH (17:00)
[2019-08-24] MEDS: IV D5 1/2 NS 1000 ML 1,000 ML IV PRN (17:52)
--- NOTE | 2019-08-24 18:29 | NUR ---
PT RETURNED FROM [facility] MRI. NO ACUTE DISTRESS OR SOB NOTED. PT PLACED BACK ON IVF AND G TUBE FEEDING. IV ON L AC 22 PATENT AND FLUSHED. BED LOCKED AND IN LOW POSITION. PT ALERT AND ORIENTED X1. PARRA CATHETER FLOWING. WILL GIVE REPORT ACCORDINGLY.
--- NOTE | 2019-08-24 19:00 | NUR ---
PATIENT ALERT BUT FORGETFUL, NO SOB NO CHEST PAIN, TELE MONITOR SINUS RHYTHM AT THIS TIME. PATIENT HAS EPISODE OF RESTLESSNESS, TRIES TO REMOVED HAND MITTENS, REDIRECT PATIENT AND PATIENT IS REDIRECTABLE AT THIS TIME. CONT TO MONITOR.
--- NOTE | 2019-08-24 20:00 | NUR ---
PATIENT IN BED VERBALLY RESPONSIVE, PATIENT RESTLESS IN BED, PATIENT WAS CHECK FOR INCONTINENCE, DIAPER WAS DRY, PARRA CATH PATENT. PATIENT DENIES IF SHE IN PAIN. TURN AND REPOSITION, WILL CONT TO MONITOR.
[2019-08-24] MEDS: TAMSULOSIN HCL 0.4 MG CAP.SR.24H PO SCH (21:05)
[2019-08-24] MEDS: ATORVASTATIN 10 MG TABLET PO SCH (21:06)
--- NOTE | 2019-08-24 21:50 | NUR ---
PATIENT YELLING FOR HELP, PATIENT ON THE FLOOR SEATING NEXT TO BED. PATIENT PLACE BACK TO BED BODY CHECK WAS DONE, NO VISIBLE INJURY NOTED, PATIENT HAS NO COMPLAIN OF PAIN, GENTLE ROM DONE ON UPPER AND LOWER EXTREMITIES WITH NO DIFFICULTY NOTED. V.S STABLE, GT INTACT, IV LINE INTACT. PATIENT WAS MOVED TO ANOTHER ROOM CLOSE TO THE STATION FOR FREQUENT VISUAL CHECK. CONT TO MONITOR.
--- NOTE | 2019-08-24 22:02 | NUR ---
PLACE TO DR. EDITH BROWN AND NOTIFY THE INCIDENT OF FALL, WITH NO NEW ORDER AT THIS TIME, WILL CONT TO MONITOR.
--- NOTE | 2019-08-24 22:35 | NUR ---
PLACE A CALL TO PATIENT ILIANA AND NOTIFY HER THE INCIDENT OF FALL.
[2019-08-25 00:24] VITALS: BP 132/54
--- NOTE | 2019-08-25 01:42 | NUR ---
PATIENT COMPLAINING OF R FLANK PAIN, NOTIFY DR DONALDSON WITH ORDER OF CXR.
[2019-08-25] MEDS: MORPHINE SULFATE 2 MG/1 ML DISP.SYRIN IV PRN ×3 (01:52→14:34)
[2019-08-25] MEDS: MEROPENEM 1 G in IV NORMAL SALINE 100 ML IV SCH ×3 (03:39→18:14)
[2019-08-25 04:00] VITALS: BP 118/57
[2019-08-25] MEDS: IPRATROPIUM BROMIDE 0.5 MG/2.5 ML NEBU NEB SCH ×5 (05:29→19:21)
[2019-08-25] MEDS: ALBUTEROL SULFATE 2.5 MG/3 ML NEBU NEB SCH ×5 (05:29→19:21)
[2019-08-25] MEDS: PANTOPRAZOLE ORAL SUSPENSION 40 MG SUSPDR.PKT PEG SCH (06:04)
[2019-08-25] MEDS: LEVOTHYROXINE SODIUM 25 MCG TABLET PO SCH (06:04)
[2019-08-25 07:11] LABS: BASOPHILS % (AUTO) 0.1 % (0.0-2.0); EOSINOPHILS # (AUTO) 0.1 K/uL (0.0-0.7); EOSINOPHILS % (AUTO) 0.3 % (0.0-7.0); HEMATOCRIT 37.2 % (36.7-47.1); HEMOGLOBIN 12.4 g/dL (12.5-16.3); LYMPHOCYTES # (AUTO) 0.4 K/uL (20.0-40.0); LYMPHOCYTES % (AUTO) 1.8 % (20.5-51.5); MEAN CORPUSCULAR HEMOGLOBIN 33.4 uug (23.8-33.4); MEAN CORPUSCULAR HGB CONC 33 g/dL (32.5-36.3); MEAN CORPUSCULAR VOLUME 100.4 fL (73.0-96.2); MONOCYTES # (AUTO) 1.1 K/uL (2.0-10.0); MONOCYTES % (AUTO) 5.6 % (0.0-11.0); NEUTROPHILS % (AUTO) 92.2 % (38.5-71.5); PLATELET COUNT (AUTO) 447 K/uL (152-348); RED BLOOD CELL COUNT(AUTO) 3.71 MIL/uL (4.06-5.63); WHITE BLOOD COUNT (AUTO) 19.5 K/uL (3.6-10.2)
[2019-08-25 07:27] LABS: CREATININE 0.6 mg/dL (0.6-1.3); MAGNESIUM 2.3 mg/dL (1.8-2.4); POTASSIUM 4.3 mmol/L (3.5-5.1)
[2019-08-25 07:33] LABS: NEUTROPHILS % (MANUAL) 90 % (42-75)
[2019-08-25 07:34] LABS: BAND % (MANUAL) 1 % (0-10); LYMPHOCYTES % (MANUAL) 4 % (20-40); MONOCYTES % (MANUAL) 5 % (2-10)
--- NOTE | 2019-08-25 08:00 | NUR ---
Received patient awake in bed. AAOx1. Mittens on bilateral hands for safety. Iv on L AC intact and patent with IVF running as ordered. G-tube in place receiving Glucerna 1.2 at 60cc/hr; no residual. Safety measures implemented. Bed alarm on. Will continue to monitor.
[2019-08-25] MEDS: levETIRAcetam 500 MG/5 ML LIQUID UDC PEG SCH ×2 (08:35→21:13)
[2019-08-25] MEDS: methylPREDNISolone SOD SUCC 40 MG/ML VIAL IV SCH ×2 (08:35→21:14)
[2019-08-25] MEDS: ASCORBIC ACID 500 MG TABLET PEG SCH (08:35)
[2019-08-25] MEDS: Z GUARD REMEDY PASTE 57 GM TUBE TOP SCH ×2 (08:36→21:16)
[2019-08-25] MEDS: ENOXAPARIN SODIUM 40 MG/0.4 ML DISP.SYRIN SQ SCH (08:40)
[2019-08-25] MEDS: AMIODARONE HCL 200 MG TABLET GT SCH (08:55)
[2019-08-25 11:06] VITALS: BP 114/67
--- NOTE | 2019-08-25 14:48 | NUR ---
PHARMACY CLINICAL NOTES: (VANCOMYCIN DOSING) S: 83 YO male currently on merrem for sepsis, ID ordered vancomcyin for MRSA and (amp sens. Enterococcus) in the abdominal wound. O: BUN/SCR 11/0.6, WBC 19.5 , TEMP 98.5, T 1/2 14.7 HRS ; DOSING WT 60 KG A/P: Will dose Vancomycin as 1000 mg q18h. estimated peak is 40 and trough id 18.3. Plan to order trouth prior to 4th dose (not ordered in [facility]ise) .RX will continue to monitor renal fxn and levels and adjust the dose as needed.
[2019-08-25] MEDS: VANCOMYCIN IV 1,000 MG in IV DEXTROSE 5% 250 ML IV SCH (15:13)
[2019-08-25] MEDS: GLUCERNA 1.2 1000ML LIQUID GT PRN (15:20)
[2019-08-25 15:26] VITALS: BP 128/65
[2019-08-25] MEDS: SUCRALFATE 1 G TABLET PO SCH (16:41)
--- NOTE | 2019-08-25 18:09 | NUR ---
Contact precautions observed for MRSA of Gtube site. Patient became increasingly agitated and when asked what was wrong patient stated "pain" and would point towards head and right flank. PRN Morphine administered x2; tolerated. Patient resting in bed comfortably at this time. Gtube feeding continued. No s/s of acute distress. No SOB noted. Comfort provided at all times. Will endorse care accordingly.
--- NOTE | 2019-08-25 20:03 | NUR ---
Received patient lying in bed. Tube feeding running. IV ABX running, restraint mittens on, SCDs on and bed alarm on.
[2019-08-25 20:45] VITALS: BP 125/55
[2019-08-25] MEDS: TAMSULOSIN HCL 0.4 MG CAP.SR.24H PO SCH (21:13)
[2019-08-25] MEDS: ATORVASTATIN 10 MG TABLET PO SCH (21:13)
[2019-08-26] MEDS: MEROPENEM 1 G in IV NORMAL SALINE 100 ML IV SCH ×3 (03:54→18:05)
[2019-08-26 05:45] VITALS: BP 132/86
[2019-08-26 06:33] LABS: BASOPHILS % (AUTO) 0.2 % (0.0-2.0); HEMATOCRIT 31.1 % (36.7-47.1); HEMOGLOBIN 10.6 g/dL (12.5-16.3); LYMPHOCYTES # (AUTO) 0.3 K/uL (20.0-40.0); LYMPHOCYTES % (AUTO) 1.5 % (20.5-51.5); MEAN CORPUSCULAR HEMOGLOBIN 33.6 uug (23.8-33.4); MEAN CORPUSCULAR HGB CONC 34 g/dL (32.5-36.3); MEAN CORPUSCULAR VOLUME 98.6 fL (73.0-96.2); MONOCYTES # (AUTO) 0.7 K/uL (2.0-10.0); MONOCYTES % (AUTO) 3.8 % (0.0-11.0); NEUTROPHILS # (AUTO) 18.7 K/uL (1.8-8.9); NEUTROPHILS % (AUTO) 94.5 % (38.5-71.5); PLATELET COUNT (AUTO) 462 K/uL (152-348); RED BLOOD CELL COUNT(AUTO) 3.16 MIL/uL (4.06-5.63); WHITE BLOOD COUNT (AUTO) 19.8 K/uL (3.6-10.2)
[2019-08-26 06:41] LABS: CREATININE 0.6 mg/dL (0.6-1.3); MAGNESIUM 2.3 mg/dL (1.8-2.4); PHOSPHOROUS 3.9 mg/dL (2.5-4.9); POTASSIUM 4.1 mmol/L (3.5-5.1)
[2019-08-26] MEDS: PANTOPRAZOLE ORAL SUSPENSION 40 MG SUSPDR.PKT PEG SCH (06:47)
[2019-08-26] MEDS: LEVOTHYROXINE SODIUM 25 MCG TABLET PO SCH (06:47)
[2019-08-26 08:03] LABS: LYMPHOCYTES % (MANUAL) 2 % (20-40); MONOCYTES % (MANUAL) 3 % (2-10); NEUTROPHILS % (MANUAL) 95 % (42-75)
[2019-08-26] MEDS: ALBUTEROL SULFATE 2.5 MG/3 ML NEBU NEB SCH ×4 (08:29→19:16)
[2019-08-26] MEDS: IPRATROPIUM BROMIDE 0.5 MG/2.5 ML NEBU NEB SCH ×4 (08:29→19:16)
[2019-08-26] MEDS: HYDROCODONE/APAP 5-325MG TABLET PEG PRN ×2 (08:40→17:21)
[2019-08-26] MEDS: AMIODARONE HCL 200 MG TABLET GT SCH (08:40)
[2019-08-26] MEDS: levETIRAcetam 500 MG/5 ML LIQUID UDC PEG SCH ×2 (08:40→21:35)
--- NOTE | 2019-08-26 08:45 | NUR ---
MED SURG: Nursing Notes: Vomiting: Patient having one episode of vomiting, coughing, PRN suctioning done, RT did deep suctioning and HHN, HOB @ 45 degree angle, B/P= 132/88, cooperative with staff, answering staff questions, G-Tube feeding @ 70ml/hr, charge nurse informed, continue to monitor for safety, continue with treatment plan.
[2019-08-26] MEDS: ENOXAPARIN SODIUM 40 MG/0.4 ML DISP.SYRIN SQ SCH (08:47)
[2019-08-26] MEDS: ASCORBIC ACID 500 MG TABLET PEG SCH (08:55)
[2019-08-26] MEDS: Z GUARD REMEDY PASTE 57 GM TUBE TOP SCH ×2 (09:17→21:36)
[2019-08-26] MEDS: methylPREDNISolone SOD SUCC 40 MG/ML VIAL IV SCH ×2 (09:33→21:35)
[2019-08-26] MEDS: VANCOMYCIN IV 1,000 MG in IV DEXTROSE 5% 250 ML IV SCH (09:34)
[2019-08-26 11:45] VITALS: BP 122/61
[2019-08-26 12:46] LABS: ABG BASE EXCESS -1.1 mmol/L; ABG HCO3 19.9 mmol/L; ABG PCO2 23.4 mmHg (35.0-45.0); ABG PH 7.548 (7.350-7.450); ABG PO2 48.7 mmHg (75.0-100.0); ABG SITE RIGHT RADIAL; ABG TOTAL HEMOGLOBIN 11.5 G/dL (13.5-18.0); COHb 1.3 % (0.5-1.5); MetHb 0.3 % (0.0-1.5); O2Hb 83.6 % (94.0-97.0); VENT MODE Mask - Venturi
--- NOTE | 2019-08-26 13:12 | NUR ---
MED SURG: Nursing Notes: Low O2 Sat: Dr. Londono informed of pulse oximetry is 83% and that the patient vomiting in the morning, Dr. Londono stated that he will put orders in the computer, continue to monitor patient.
--- NOTE | 2019-08-26 13:15 | NUR ---
MED SURG: Nursing Notes: Low O2 Sat: Dr. Barron informed of low pulse oximetry 83%, vomiting this am, and CXR ordered by Dr. Kim, Dr. Barron examined he patient and ordered ABG, continue to monitor patient.
--- NOTE | 2019-08-26 13:29 | NUR ---
PHARMACY CLINICAL NOTES: (VANCOMYCIN DOSING) S: 83 YO male currently on merrem for sepsis, ID ordered vancomcyin for MRSA and (amp sens. Enterococcus) in the abdominal wound. O: BUN/SCR 11/0.6, WBC 19.8 , TEMP 98, T 1/2 14.7 HRS ; DOSING WT 60 KG A/P: Will continue Vancomycin as 1000 mg IV q18h, estimated peak is 40 and trough is 18.3. Third dose tomorrow at 0300. Plan to order trough prior to 4th dose (not ordered yet) .RX will continue to monitor renal fxn and levels and adjust the dose as needed.
[2019-08-26] MEDS: MORPHINE SULFATE 2 MG/1 ML DISP.SYRIN IV PRN ×2 (13:32→21:37)
--- NOTE | 2019-08-26 13:45 | NUR ---
MED SURG: Nursing Notes: ABG Done: RT change NC to non rebreather @ 15L/min according to ABG results per RT, ABG results reported to Dr. Barron, stated that he will put orders in the computer, continue to monitor patient.
--- NOTE | 2019-08-26 14:17 | NUR ---
MED SURG: Nursing Notes: F/C Slight Bleeding: Padron catheter slight bleeding noted, informed charge nurse, per Dr. Coles note, stop anticoagulant medication, continue to monitor patient, per Dr. Barron HOB @ 35 degrees at all times, continue with treatment plan.
--- NOTE | 2019-08-26 14:53 | NUR ---
MED SURG: Nursing Notes: Pulse Oximetry: Dr. Barron ordered continuous pulse oximetry monitoring, set up by RT, continue with treatment plan.
[2019-08-26 15:11] VITALS: BP 142/63
[2019-08-26] MEDS: SUCRALFATE 1 G TABLET PO SCH (17:20)
--- NOTE | 2019-08-26 17:21 | NUR ---
Tolerating TF per nursing and running at goal rate. Weight remains stable. Nutritional labs unremarkable. Recommend continue with current regime for now Addendum: 08/26/19 at 1747 by MULU CARIAS, ISAURA RD Amended: Links added.
--- NOTE | 2019-08-26 17:22 | NUR ---
MED SURG: Nursing Notes: F/C Slight Bleeding: Dr. Londono informed of venegas catheter slight bleeding and Dr. Kim recommends no antiplatelets or anticoagulants, Dr. Londono order to discontinue Lovenox, continue to monitor patient.
--- NOTE | 2019-08-26 17:30 | NUR ---
MED SURG: Nursing Notes: Elevated Residual Residual check = 130ml, informed charge nurse, to hold G-Tube feeding and to restart in 4 hours per charge nurse, continue to monitor patient.
[2019-08-26 20:44] VITALS: BP 101/59
[2019-08-26] MEDS: ATORVASTATIN 10 MG TABLET PO SCH (21:35)
[2019-08-26] MEDS: TAMSULOSIN HCL 0.4 MG CAP.SR.24H PO SCH (21:35)
[2019-08-27] MEDS: VANCOMYCIN IV 1,000 MG in IV DEXTROSE 5% 250 ML IV SCH ×2 (02:34→20:46)
[2019-08-27] MEDS: MORPHINE SULFATE 2 MG/1 ML DISP.SYRIN IV PRN ×2 (03:18→17:38)
[2019-08-27] MEDS: MEROPENEM 1 G in IV NORMAL SALINE 100 ML IV SCH ×3 (04:50→19:35)
[2019-08-27 05:48] LABS: CREATININE 0.7 mg/dL (0.6-1.3); MAGNESIUM 2.4 mg/dL (1.8-2.4); PHOSPHOROUS 3.3 mg/dL (2.5-4.9); POTASSIUM 4.5 mmol/L (3.5-5.1)
[2019-08-27 06:06] LABS: BASOPHILS % (AUTO) 0.1 % (0.0-2.0); HEMATOCRIT 31.1 % (36.7-47.1); HEMOGLOBIN 10.2 g/dL (12.5-16.3); LYMPHOCYTES # (AUTO) 0.2 K/uL (20.0-40.0); LYMPHOCYTES % (AUTO) 0.9 % (20.5-51.5); MEAN CORPUSCULAR HEMOGLOBIN 32.7 uug (23.8-33.4); MEAN CORPUSCULAR HGB CONC 33 g/dL (32.5-36.3); MEAN CORPUSCULAR VOLUME 99.4 fL (73.0-96.2); MONOCYTES # (AUTO) 0.5 K/uL (2.0-10.0); MONOCYTES % (AUTO) 2.1 % (0.0-11.0); NEUTROPHILS # (AUTO) 21.1 K/uL (1.8-8.9); NEUTROPHILS % (AUTO) 96.9 % (38.5-71.5); PLATELET COUNT (AUTO) 440 K/uL (152-348); RED BLOOD CELL COUNT(AUTO) 3.13 MIL/uL (4.06-5.63); WHITE BLOOD COUNT (AUTO) 21.7 K/uL (3.6-10.2)
[2019-08-27] MEDS: LEVOTHYROXINE SODIUM 25 MCG TABLET PO SCH (06:38)
[2019-08-27] MEDS: PANTOPRAZOLE ORAL SUSPENSION 40 MG SUSPDR.PKT PEG SCH (06:38)
[2019-08-27 06:46] VITALS: BP 113/56
--- NOTE | 2019-08-27 07:06 | NUR ---
Patient was put on humidified nasal cannula O2 at 40% during the night, tolerated well, urine has bloody sediment and cloudy. Diminished lungs sounds, absent bowel sounds.
[2019-08-27] MEDS: IPRATROPIUM BROMIDE 0.5 MG/2.5 ML NEBU NEB SCH ×4 (07:25→19:32)
[2019-08-27] MEDS: ALBUTEROL SULFATE 2.5 MG/3 ML NEBU NEB SCH ×4 (07:25→19:32)
--- NOTE | 2019-08-27 07:30 | NUR ---
Patient calm and comfortable upon initial assessment; patient will continue to be monitored.
[2019-08-27] MEDS: ASCORBIC ACID 500 MG TABLET PEG SCH (08:42)
[2019-08-27] MEDS: levETIRAcetam 500 MG/5 ML LIQUID UDC PEG SCH ×2 (08:42→20:46)
[2019-08-27] MEDS: methylPREDNISolone SOD SUCC 40 MG/ML VIAL IV SCH ×2 (08:44→20:45)
[2019-08-27] MEDS: AMIODARONE HCL 200 MG TABLET GT SCH (08:44)
[2019-08-27] MEDS: Z GUARD REMEDY PASTE 57 GM TUBE TOP SCH ×2 (08:45→20:46)
--- NOTE | 2019-08-27 11:06 | NUR ---
PHARMACY CLINICAL NOTES: (VANCOMYCIN DOSING) S: 83 YO male currently on merrem for sepsis, ID ordered vancomcyin for MRSA and (amp sens. Enterococcus) in the abdominal wound. O: BUN/SCR 13/0.7, WBC 21.7 , TEMP 99.3, T 1/2 14.7 HRS ; DOSING WT 60 KG A/P: Will continue Vancomycin as 1000 mg IV q18h, estimated peak is 40 and trough is 18.3. Third dose was today at 0300. Plan to order trough prior to 4th dose (due tonight at 2030). RN endorsed to hold dose if trough >20. Will check in am and adjust as needed. Will follow
[2019-08-27 11:15] VITALS: BP 141/54
[2019-08-27 15:01] VITALS: BP 103/40
[2019-08-27] MEDS: SUCRALFATE 1 G TABLET PO SCH (17:38)
--- NOTE | 2019-08-27 19:37 | NUR ---
Patient kept comfortable through out shift patient at baseline mental status; patient with stable vital signs ; patient with no signs of distress; patient will continue kept comfortable ; report given to oncoming nurse.
--- NOTE | 2019-08-27 20:16 | NUR ---
Received patient in bed, sleeping in high styles's condition. No signs of any acute distress. GT feeding running as ordered. Kept on isolation for MRSA. All fall and safety precautions in place, will continue to monitor.
[2019-08-27 20:45] VITALS: BP 101/55
[2019-08-27] MEDS: TAMSULOSIN HCL 0.4 MG CAP.SR.24H PO SCH (20:45)
[2019-08-27] MEDS: ATORVASTATIN 10 MG TABLET PO SCH (20:45)
[2019-08-28] MEDS: GLUCERNA 1.2 1000ML LIQUID GT PRN ×2 (00:20→17:36)
[2019-08-28] MEDS: MORPHINE SULFATE 2 MG/1 ML DISP.SYRIN IV PRN ×2 (01:25→18:55)
[2019-08-28] MEDS: ONDANSETRON 4 MG/2 ML VIAL IV PRN (01:25)
[2019-08-28] MEDS: MEROPENEM 1 G in IV NORMAL SALINE 100 ML IV SCH ×3 (03:02→18:55)
[2019-08-28] MEDS: ZOLPIDEM 5 MG TABLET PEG PRN ×2 (03:02→22:46)
[2019-08-28] MEDS: HYDROCODONE/APAP 5-325MG TABLET PEG PRN (03:02)
[2019-08-28 05:00] VITALS: BP 99/48
[2019-08-28] MEDS: PANTOPRAZOLE ORAL SUSPENSION 40 MG SUSPDR.PKT PEG SCH (06:35)
[2019-08-28] MEDS: LEVOTHYROXINE SODIUM 25 MCG TABLET PO SCH (06:35)
[2019-08-28 06:36] LABS: BASOPHILS % (AUTO) 0.1 % (0.0-2.0); HEMATOCRIT 29.6 % (36.7-47.1); HEMOGLOBIN 9.9 g/dL (12.5-16.3); LYMPHOCYTES # (AUTO) 0.1 K/uL (20.0-40.0); LYMPHOCYTES % (AUTO) 0.7 % (20.5-51.5); MEAN CORPUSCULAR HEMOGLOBIN 33.2 uug (23.8-33.4); MEAN CORPUSCULAR HGB CONC 33 g/dL (32.5-36.3); MEAN CORPUSCULAR VOLUME 99.2 fL (73.0-96.2); MONOCYTES # (AUTO) 0.4 K/uL (2.0-10.0); MONOCYTES % (AUTO) 2.1 % (0.0-11.0); NEUTROPHILS # (AUTO) 18.6 K/uL (1.8-8.9); NEUTROPHILS % (AUTO) 97.1 % (38.5-71.5); PLATELET COUNT (AUTO) 450 K/uL (152-348); RED BLOOD CELL COUNT(AUTO) 2.99 MIL/uL (4.06-5.63); WHITE BLOOD COUNT (AUTO) 19.2 K/uL (3.6-10.2)
[2019-08-28 06:49] LABS: CREATININE 0.7 mg/dL (0.6-1.3); MAGNESIUM 2.3 mg/dL (1.8-2.4); PHOSPHOROUS 3.2 mg/dL (2.5-4.9); POTASSIUM 4.6 mmol/L (3.5-5.1)
[2019-08-28] MEDS: IPRATROPIUM BROMIDE 0.5 MG/2.5 ML NEBU NEB SCH ×4 (07:05→19:30)
[2019-08-28] MEDS: ALBUTEROL SULFATE 2.5 MG/3 ML NEBU NEB SCH ×4 (07:05→20:12)
[2019-08-28 08:07] LABS: ABG BASE EXCESS -1.8 mmol/L; ABG HCO3 20.7 mmol/L; ABG PCO2 27.8 mmHg (35.0-45.0); ABG PH 7.489 (7.350-7.450); ABG PO2 90.4 mmHg (75.0-100.0); ABG SITE LEFT RADIAL; ABG TOTAL HEMOGLOBIN 10.7 G/dL (13.5-18.0); COHb 0.9 % (0.5-1.5); MetHb 0.4 % (0.0-1.5); O2Hb 95.4 % (94.0-97.0); VENT MODE Nasal Cannula 6L
--- NOTE | 2019-08-28 09:05 | NUR ---
PHARMACY CLINICAL NOTES: (VANCOMYCIN DOSING) S: 83 YO male currently on merrem for sepsis, ID ordered vancomcyin for MRSA and (amp sens. Enterococcus) in the abdominal wound. O: BUN/SCR 16/0.7, WBC 19.2 , TEMP 98, T 1/2 14.7 HRS ; DOSING WT 60 KG Trough 08/27@2029: 10.4 A/P: Based on vanco trough, rescheduled regimen to 1gm q14hr for new estimated trough of 15.4, first dose today at 1100. Will order trough before 4th scheduled dose (not ordered yet). Will follow and adjust as well if renal function were to change.
[2019-08-28] MEDS: methylPREDNISolone SOD SUCC 40 MG/ML VIAL IV SCH ×2 (10:08→22:45)
[2019-08-28] MEDS: levETIRAcetam 500 MG/5 ML LIQUID UDC PEG SCH ×2 (10:08→22:45)
[2019-08-28] MEDS: AMIODARONE HCL 200 MG TABLET GT SCH (10:08)
[2019-08-28] MEDS: ASCORBIC ACID 500 MG TABLET PEG SCH (10:08)
[2019-08-28] MEDS: Z GUARD REMEDY PASTE 57 GM TUBE TOP SCH ×2 (10:09→22:47)
[2019-08-28 10:20] LABS: BAND % (MANUAL) 1 % (0-10); LYMPHOCYTES % (MANUAL) 1 % (20-40); METAMYELOCYTES % 1 % (0-1); MONOCYTES % (MANUAL) 3 % (2-10); MYELOCYTES % 2 % (0-0); NEUTROPHILS % (MANUAL) 92 % (42-75)
[2019-08-28 11:36] VITALS: BP 132/59
[2019-08-28] MEDS: VANCOMYCIN IV 1,000 MG in IV DEXTROSE 5% 250 ML IV SCH (13:51)
[2019-08-28 15:38] VITALS: BP 111/55
[2019-08-28] MEDS: SUCRALFATE 1 G TABLET PO SCH (17:36)
--- NOTE | 2019-08-28 19:11 | NUR ---
PATIENT KEPT COMFORTABLE THROUGH OUT SHIFT WITH NO MAJOR SIGNS OF DISTRESS; PATIENT RESTLESS AT TIMES; PATIENT KEPT COMFORTABLE ; FAMILY AT BEDSIDE THROUGH OUT DAY.
[2019-08-28 20:01] VITALS: BP 115/69
[2019-08-28] MEDS: TAMSULOSIN HCL 0.4 MG CAP.SR.24H PO SCH (22:46)
[2019-08-28] MEDS: ATORVASTATIN 10 MG TABLET PO SCH (22:46)
[2019-08-29] VITALS (10 sets, daily range): BP systolic 101–143; BP diastolic 53–86
[2019-08-29] MEDS: VANCOMYCIN IV 1,000 MG in IV DEXTROSE 5% 250 ML IV SCH ×2 (01:03→14:36)
[2019-08-29] MEDS: MORPHINE SULFATE 2 MG/1 ML DISP.SYRIN IV PRN ×2 (01:04→16:50)
[2019-08-29] MEDS: ONDANSETRON 4 MG/2 ML VIAL IV PRN (01:04)
--- NOTE | 2019-08-29 01:56 | NUR ---
Patient has been increasingly restless from beginning of shift until now. Episodic coughing and desaturation noted, chest congestion also evident. Nasotracheal suctioning done, clear to whitish secretions suctioned. O2 saturation sensor fixed multiple times. Tube feeding held at 0100, for residual of >60cc. All necessary wound and skin care provided. Kept comfortable in bed through hourly repositioning. Redirected, reoriented and provided with assurance, however patient still very restless at this time. Morphine 1 mg given x 1, as well as Ambien 5mg, but not effective. Reported to Dr. Perez with new orders. Will carryout and continue to monitor patient for effectiveness.
[2019-08-29] MEDS ORDERED: LORAZEPAM 2 MG/1 ML VIAL IV PRN (02:00)
[2019-08-29] MEDS: MEROPENEM 1 G in IV NORMAL SALINE 100 ML IV SCH ×3 (03:59→21:12)
--- NOTE | 2019-08-29 04:45 | NUR ---
Pt is more relaxed now and has been resting since 214. Pt noted to be slightly tachypneic, with RR: 25-30. O2 saturation is 100% on 6LPM O2, titrated down to 3LPM via NC, and is now 97%. HR: 90s, and BP: 112/56. Residual amount checked: 60cc still, dark brown sticky residual noted. Feeding still held and Dr. Perez notified of patient's condition.
--- NOTE | 2019-08-29 05:46 | NUR ---
New orders noted from RT notified.
--- NOTE | 2019-08-29 05:48 | NUR ---
Patient kept comfortable at this time. Resting in bed. Respiration shallow, but slowed down to 22. No other signs of pain or discomfort. No coughing noted. Feeding still held, AM meds held still with 60cc of residual volume. Still sleeping. Will continue to monitor.
[2019-08-29] MEDS: PANTOPRAZOLE ORAL SUSPENSION 40 MG SUSPDR.PKT PEG SCH (05:57)
[2019-08-29] MEDS: LEVOTHYROXINE SODIUM 25 MCG TABLET PO SCH (06:00)
[2019-08-29 06:28] LABS: ABG BASE EXCESS 1.5 mmol/L; ABG HCO3 23.1 mmol/L; ABG PCO2 26.8 mmHg (35.0-45.0); ABG PH 7.553 (7.350-7.450); ABG SITE RIGHT RADIAL; ABG TOTAL HEMOGLOBIN 10.4 G/dL (13.5-18.0); COHb 0.6 % (0.5-1.5); MetHb 0.2 % (0.0-1.5); O2Hb 98.4 % (94.0-97.0); VENT MODE Nasal Cannula
--- NOTE | 2019-08-29 06:36 | NUR ---
Relayed ABG results to BRITTANY Taylor at this time. Pt monitored. Vital signs taken. BP: 106/53 and HR: 88. O2 kept at 3LPM via NC. Saturating at 97%.
--- NOTE | 2019-08-29 07:30 | NUR ---
Patient resting bed with accessory muscle use for breathing ; graveyard nurse relayed patient had become very restless at night and attending md notified and x-ray done ; awaiting results.
[2019-08-29] MEDS: ALBUTEROL SULFATE 2.5 MG/3 ML NEBU NEB SCH ×4 (07:59→19:13)
[2019-08-29] MEDS: IPRATROPIUM BROMIDE 0.5 MG/2.5 ML NEBU NEB SCH ×4 (07:59→19:13)
--- NOTE | 2019-08-29 09:02 | NUR ---
received critical chest x-ray results ; MD COTTON relayed patient had right pneumothorax; will relay results to attending Md.
--- NOTE | 2019-08-29 09:06 | NUR ---
ATTENDING NOTIFIED THAT PATIENT HAD A R PNEUMOTHORAX ; ORDERS TO PLACE PATIENT ON 100% NON-REBREATHER. ORDERS RECEIVED AND CARRIED OUT.
--- NOTE | 2019-08-29 09:30 | NUR ---
PHARMACY CLINICAL NOTES: (VANCOMYCIN DOSING) S: To continue vanco dosing for this 83 YO male patient for MRSA and (amp sens. Enterococcus) in the abdominal wound. O: BUN/SCR 16/0.7 (08/28) , WBC 19.2 (08/28) , TEMP 97.5, ht 180 cm wt 60 kg Trough 08/27@2030: 10.4 A/P: Will continue same dose of vanco 1gm IVPB q14hr for today. 3rd dose today at 1500. Will order trough before 4th scheduled dose (ordered for 08/30 at 0430am- RN has been informed to hold 0500 dose if vanco trough level above 20 mcg/ml). Pharmacy will review the level in am & adjust the dose if needed. Will follow.
[2019-08-29 09:33] LABS: BASOPHILS # (AUTO) 0.1 K/uL (0.0-8.0); BASOPHILS % (AUTO) 0.3 % (0.0-2.0); HEMATOCRIT 33.5 % (36.7-47.1); HEMOGLOBIN 11.1 g/dL (12.5-16.3); LYMPHOCYTES # (AUTO) 0.2 K/uL (20.0-40.0); LYMPHOCYTES % (AUTO) 0.8 % (20.5-51.5); MEAN CORPUSCULAR HEMOGLOBIN 32.9 uug (23.8-33.4); MEAN CORPUSCULAR HGB CONC 33 g/dL (32.5-36.3); MEAN CORPUSCULAR VOLUME 99.3 fL (73.0-96.2); MONOCYTES # (AUTO) 0.6 K/uL (2.0-10.0); MONOCYTES % (AUTO) 2.8 % (0.0-11.0); NEUTROPHILS # (AUTO) 20.1 K/uL (1.8-8.9); NEUTROPHILS % (AUTO) 96.1 % (38.5-71.5); PLATELET COUNT (AUTO) 532 K/uL (152-348); RED BLOOD CELL COUNT(AUTO) 3.37 MIL/uL (4.06-5.63)
[2019-08-29] MEDS: ASCORBIC ACID 500 MG TABLET PEG SCH (09:33)
[2019-08-29] MEDS: levETIRAcetam 500 MG/5 ML LIQUID UDC PEG SCH ×2 (09:33→21:52)
[2019-08-29] MEDS: Z GUARD REMEDY PASTE 57 GM TUBE TOP SCH ×2 (09:34→21:15)
[2019-08-29] MEDS: AMIODARONE HCL 200 MG TABLET GT SCH (09:34)
[2019-08-29] MEDS: methylPREDNISolone SOD SUCC 40 MG/ML VIAL IV SCH ×2 (09:34→21:12)
[2019-08-29 09:43] LABS: CARBON DIOXIDE 30 mmol/L (21-32); CHLORIDE 102 mmol/L (98-107); CREATININE 0.6 mg/dL (0.6-1.3); GLUCOSE 166 mg/dL (74-106); MAGNESIUM 2.4 mg/dL (1.8-2.4); PHOSPHOROUS 3.5 mg/dL (2.5-4.9); POTASSIUM 4.7 mmol/L (3.5-5.1); UREA NITROGEN, BLOOD 15 mg/dL (7-18)
[2019-08-29 10:10] LABS: LYMPHOCYTES % (MANUAL) 2 % (20-40); MONOCYTES % (MANUAL) 2 % (2-10); MYELOCYTES % 1 % (0-0); NEUTROPHILS % (MANUAL) 95 % (42-75)
[2019-08-29 10:59] LABS: ABG BASE EXCESS 0.9 mmol/L; ABG HCO3 24.1 mmol/L; ABG PCO2 33.5 mmHg (35.0-45.0); ABG PH 7.475 (7.350-7.450); ABG SITE LEFT RADIAL; ABG TOTAL HEMOGLOBIN 10.9 G/dL (13.5-18.0); COHb 0.8 % (0.5-1.5); MetHb 0.3 % (0.0-1.5); O2Hb 98.2 % (94.0-97.0); VENT MODE NRB
--- NOTE | 2019-08-29 11:15 | NUR ---
A call to Dr. Bowling and orders for medication procedures, received. See order hx.
[2019-08-29] MEDS ORDERED: MIDAZOLAM HCL 2 MG/2 ML VIAL IV PRN (11:30)
[2019-08-29] MEDS ORDERED: NALOXONE HCL 0.4 MG/ML AMPUL IV PRN (11:30)
[2019-08-29] MEDS ORDERED: FENTANYL CITRATE 100 MCG/2 ML AMPUL IV PRN (11:30)
[2019-08-29] MEDS ORDERED: LIDOCAINE HCL 1% 20 ML VIAL ONE (11:47)
--- NOTE | 2019-08-29 11:50 | NUR ---
Patient sent down for ct drainage procedure.
--- NOTE | 2019-08-29 13:18 | NUR ---
Full telephone SBAR report received by HADLEY Morejon.
--- NOTE | 2019-08-29 13:45 | NUR ---
Pt received from OR with chest tube drainage system. VSS wnl on NRB 15L saturating 100%. Pt stable and nad noted upon transfer. Full telephone SBAR report received by HADLEY Morejon and COMMERCIAL BAKER HELPER.
--- NOTE | 2019-08-29 15:35 | NUR ---
1535 PT PLACED BACK ON HIGH FLOW NASAL CANULA 80% FIO2 AND 30 LPM. PT COMFORTABLE WITHOUT DISTRESS.
[2019-08-29] MEDS: SUCRALFATE 1 G TABLET PO SCH (17:36)
[2019-08-29] MEDS: PANTOPRAZOLE SODIUM 40 MG VIAL IV SCH (18:56)
--- NOTE | 2019-08-29 20:43 | NUR ---
tolerating 02 hi flow at 80% fio2 saturation 100 % saturation rr 18 to 21, no respiratory distress noted ,right chest tube in placed ,dressing clean dry and intact ,to low wall continuous suction suction no output , f/c to bsd .patient confused follow restraints protocol . alert to name otherwise confused.
[2019-08-29] MEDS: TAMSULOSIN HCL 0.4 MG CAP.SR.24H PO SCH (21:12)
[2019-08-29] MEDS ORDERED: LISINOPRIL 10 MG TABLET ONE (21:42)
[2019-08-29] MEDS ORDERED: levETIRAcetam 500 MG/5 ML LIQUID UDC ONE (21:43)
[2019-08-29] MEDS: ATORVASTATIN 10 MG TABLET PO SCH (21:53)
[2019-08-29] MEDS ORDERED: ATORVASTATIN 10 MG TABLET ONE (22:11)
[2019-08-30] VITALS (23 sets, daily range): BP systolic 81–111; BP diastolic 34–64
[2019-08-30] MEDS: MEROPENEM 1 G in IV NORMAL SALINE 100 ML IV SCH ×3 (03:22→18:09)
[2019-08-30] MEDS: IV NORMAL SALINE 250 ML IV PRN (04:51)
[2019-08-30 05:14] LABS: BASOPHILS % (AUTO) 0.1 % (0.0-2.0); HEMATOCRIT 32.1 % (36.7-47.1); HEMOGLOBIN 10.8 g/dL (12.5-16.3); LYMPHOCYTES # (AUTO) 0.1 K/uL (20.0-40.0); LYMPHOCYTES % (AUTO) 0.8 % (20.5-51.5); MEAN CORPUSCULAR HEMOGLOBIN 33.2 uug (23.8-33.4); MEAN CORPUSCULAR HGB CONC 34 g/dL (32.5-36.3); MONOCYTES # (AUTO) 0.6 K/uL (2.0-10.0); MONOCYTES % (AUTO) 3.5 % (0.0-11.0); NEUTROPHILS # (AUTO) 16.5 K/uL (1.8-8.9); NEUTROPHILS % (AUTO) 95.6 % (38.5-71.5); PLATELET COUNT (AUTO) 469 K/uL (152-348); RED BLOOD CELL COUNT(AUTO) 3.24 MIL/uL (4.06-5.63); WHITE BLOOD COUNT (AUTO) 17.3 K/uL (3.6-10.2)
[2019-08-30 05:26] LABS: CARBON DIOXIDE 29 mmol/L (21-32); CHLORIDE 103 mmol/L (98-107); CREATININE 0.5 mg/dL (0.6-1.3); GLUCOSE 140 mg/dL (74-106); MAGNESIUM 2.5 mg/dL (1.8-2.4); PHOSPHOROUS 3.2 mg/dL (2.5-4.9); POTASSIUM 4.5 mmol/L (3.5-5.1); UREA NITROGEN, BLOOD 14 mg/dL (7-18)
[2019-08-30] MEDS: VANCOMYCIN IV 1,000 MG in IV DEXTROSE 5% 250 ML IV SCH ×2 (06:26→18:09)
[2019-08-30] MEDS: ALBUTEROL SULFATE 2.5 MG/3 ML NEBU NEB SCH ×4 (07:14→19:24)
[2019-08-30] MEDS: IPRATROPIUM BROMIDE 0.5 MG/2.5 ML NEBU NEB SCH ×4 (07:14→19:24)
--- NOTE | 2019-08-30 07:30 | NUR ---
PULMONARY SERVICES DR. CALDERÓN IN THE UNIT, FULL REPORT GIVEN SEE ORDER HISTORY FOR NEW ORDERS. DR. CALDERÓN AT BEDSIDE ASSESSING PATIENT.
[2019-08-30] MEDS: ASCORBIC ACID 500 MG TABLET PEG SCH (08:51)
[2019-08-30] MEDS: methylPREDNISolone SOD SUCC 40 MG/ML VIAL IV SCH ×2 (08:51→21:06)
[2019-08-30] MEDS: AMIODARONE HCL 200 MG TABLET GT SCH (08:51)
[2019-08-30] MEDS: Z GUARD REMEDY PASTE 57 GM TUBE TOP SCH ×2 (08:51→21:08)
[2019-08-30] MEDS: PANTOPRAZOLE SODIUM 40 MG VIAL IV SCH (08:51)
[2019-08-30] MEDS: LEVOTHYROXINE SODIUM 25 MCG TABLET PO SCH (08:57)
[2019-08-30 09:13] LABS: ABG BASE EXCESS 2.2 mmol/L; ABG HCO3 25.2 mmol/L; ABG PCO2 33.3 mmHg (35.0-45.0); ABG PH 7.497 (7.350-7.450); ABG PO2 124.3 mmHg (75.0-100.0); ABG SITE LEFT RADIAL; ABG TOTAL HEMOGLOBIN 10.2 G/dL (13.5-18.0); COHb 0.6 % (0.5-1.5); MetHb 0.3 % (0.0-1.5); O2Hb 97.8 % (94.0-97.0); VENT MODE HF - Aquinox
[2019-08-30] MEDS: HYDROCODONE/APAP 5-325MG TABLET PEG PRN (09:23)
[2019-08-30] MEDS: levETIRAcetam 500 MG/5 ML LIQUID UDC PEG SCH ×2 (09:28→21:07)
--- NOTE | 2019-08-30 11:15 | NUR ---
CARDIOLOGY SERVICES DR MALAVE IN THE UNIT. FULL REPORT GIVEN TO DR. MALAVE SEE ORDER HISTORY FOR NEW ORDERS. DR. MALAVE AT BEDSIDE DISCUSSING PLAN OF CARE WITH PATIENT AND SON.
--- NOTE | 2019-08-30 14:35 | NUR ---
PHARMACY CLINICAL NOTES: (VANCOMYCIN DOSING) S: To continue vanco dosing for this 83 YO male patient for MRSA and (amp sens. Enterococcus) in the abdominal wound. O: BUN/SCR 14/0.5, WBC 17.3, TEMP 98.4 ht 180 cm wt 60 kg Trough 08/27@2030: 10.4 Trough 08/30@0430: 16.4 A/P: As trough within therapeutic range, will continue same dose of vanco 1gm IVPB q14hr for today. Will continue to monitor renal function and re-order level or adjust if were to change. Also will adjust or recheck level if on prolonged course or condition were to change. Will follow
[2019-08-30] MEDS: GLUCERNA 1.2 1000ML LIQUID GT PRN (16:05)
--- NOTE | 2019-08-30 16:30 | NUR ---
PATIENTS CALLED AND REQUESTED INQUIRY OF HOSPICE CARE. SPOKE TO CASE MANAGEMENT IDALIA INFORMED THAT PATIENT AND HAVE ALREADY BEEN EVALUATED BY HOSPICE.
--- NOTE | 2019-08-30 16:53 | NUR ---
Neurology services, Dr. Latif in the unit to see and examine patient, report given, orders to continue with current care plan received.
[2019-08-30] MEDS: SUCRALFATE 1 G TABLET PO SCH (17:04)
--- NOTE | 2019-08-30 19:45 | NUR ---
rounds made patient in bed ,open eyes to name ,moved bilateral upper extremities slow and weak, patient tries to speak but incomprehensible sound .follow simple commands on and off .tolerating hi flow 02 30 liter fio2 50% saturation 100% and rr 18 to 21. right chest tube in place with dressing cdi to low continuos wall suction no output . hob up aspiration precaution observed . tube feeding in progress via the peg patient on Glucerna at 10 ml/hour tolerating tube feeding only 10 ml . f/c to bsd with yellowsih urine . continue to monitor v/s and levels of comfort.
[2019-08-30] MEDS: TAMSULOSIN HCL 0.4 MG CAP.SR.24H PO SCH (21:06)
[2019-08-30] MEDS: ATORVASTATIN 10 MG TABLET PO SCH (21:08)
[2019-08-30] MEDS ORDERED: IPRATROPIUM BROMIDE 0.5 MG/2.5 ML NEBU NEB PRN (23:15)
[2019-08-30] MEDS ORDERED: ALBUTEROL SULFATE 2.5 MG/3 ML NEBU NEB PRN (23:15)
--- NOTE | 2019-08-30 23:41 | NUR ---
breathing treatment given by respiratory therapist and suction patient after breathing treatment . as per respiratory therapist patient had a lots fo secretions .
[2019-08-31] VITALS (24 sets, daily range): BP systolic 73–131; BP diastolic 26–84
--- NOTE | 2019-08-31 01:00 | NUR ---
patient noted to be more awake but remains confused on and off follow simple commands commands .open eyes spontaneously .
[2019-08-31] MEDS: MEROPENEM 1 G in IV NORMAL SALINE 100 ML IV SCH ×3 (02:46→18:25)
--- NOTE | 2019-08-31 05:00 | NUR ---
am care done . changed soiled linens and gown ,oral care done suction via mouth .f/c done. turned and reposition patient .
[2019-08-31 05:20] LABS: BASOPHILS % (AUTO) 0.2 % (0.0-2.0); HEMATOCRIT 30.4 % (36.7-47.1); HEMOGLOBIN 10.1 g/dL (12.5-16.3); LYMPHOCYTES # (AUTO) 0.2 K/uL (20.0-40.0); LYMPHOCYTES % (AUTO) 0.8 % (20.5-51.5); MEAN CORPUSCULAR HEMOGLOBIN 32.7 uug (23.8-33.4); MEAN CORPUSCULAR HGB CONC 33 g/dL (32.5-36.3); MONOCYTES # (AUTO) 1.1 K/uL (2.0-10.0); MONOCYTES % (AUTO) 5.9 % (0.0-11.0); NEUTROPHILS # (AUTO) 17.5 K/uL (1.8-8.9); NEUTROPHILS % (AUTO) 93.1 % (38.5-71.5); PLATELET COUNT (AUTO) 453 K/uL (152-348); RED BLOOD CELL COUNT(AUTO) 3.08 MIL/uL (4.06-5.63); WHITE BLOOD COUNT (AUTO) 18.8 K/uL (3.6-10.2)
[2019-08-31 05:38] LABS: CREATININE 0.6 mg/dL (0.6-1.3); MAGNESIUM 2.4 mg/dL (1.8-2.4); POTASSIUM 4.1 mmol/L (3.5-5.1)
[2019-08-31] MEDS: LEVOTHYROXINE SODIUM 25 MCG TABLET PO SCH (06:03)
--- NOTE | 2019-08-31 06:32 | NUR ---
tolerating hi flow 02 at 30 liters= fio2 50% saturation 985 rr 23. chest tube in place to 20cm continuos low wall suction dressing clean dry and intact . no output from chest tube .
[2019-08-31] MEDS: IPRATROPIUM BROMIDE 0.5 MG/2.5 ML NEBU NEB SCH ×4 (07:03→19:17)
[2019-08-31] MEDS: ALBUTEROL SULFATE 2.5 MG/3 ML NEBU NEB SCH ×4 (07:03→19:17)
[2019-08-31] MEDS: AMIODARONE HCL 200 MG TABLET GT SCH (08:29)
[2019-08-31] MEDS: ASCORBIC ACID 500 MG TABLET PEG SCH (08:29)
[2019-08-31] MEDS: methylPREDNISolone SOD SUCC 40 MG/ML VIAL IV SCH ×2 (08:30→21:04)
[2019-08-31] MEDS: PANTOPRAZOLE ORAL SUSPENSION 40 MG SUSPDR.PKT GT SCH (08:30)
[2019-08-31] MEDS: Z GUARD REMEDY PASTE 57 GM TUBE TOP SCH ×2 (08:30→21:05)
[2019-08-31] MEDS: levETIRAcetam 500 MG/5 ML LIQUID UDC PEG SCH ×2 (08:30→21:04)
[2019-08-31] MEDS: VANCOMYCIN IV 1,000 MG in IV DEXTROSE 5% 250 ML IV SCH (08:31)
--- NOTE | 2019-08-31 09:00 | NUR ---
PULMONARY SERVICES DR CALDERÓN IN THE UNIT, FULL REPORT GIVEN TO DR CALDERÓN SEE ORDER HISTORY FOR NEW ORDERS. DR. CALDERÓN AT BEDSIDE ASSESSING PATIENT.
--- NOTE | 2019-08-31 09:04 | NUR ---
PHARMACY CLINICAL NOTES: (VANCOMYCIN DOSING) S: To continue vanco dosing for this 83 YO male patient for MRSA and (amp sens. Enterococcus) in the abdominal wound. O: BUN/SCR 14/0.6, WBC 18.8, TEMP 98.7 ht 180 cm wt 60 kg Trough 08/27@2030: 10.4 Trough 08/30@0430: 16.4 A/P: As trough within therapeutic range, will continue same dose of vanco 1gm IVPB q14hr for today. Will continue to monitor renal function and re-order level or adjust if were to change. Also will adjust or recheck level if on prolonged course or condition were to change. Will follow
[2019-08-31] MEDS: GLUCERNA 1.2 1000ML LIQUID GT PRN (10:52)
--- NOTE | 2019-08-31 13:00 | NUR ---
HOSPITALIST JIGAR MUNIZ IN THE UNI, FULL REPORT GIVEN TO JIGAR SEE ORDER HISTORY FOR NEW ORDERS. JIGAR SAS PROGRAMMER ANALYST AT BEDSIDE DISCUSSING PLAN OF CARE WITH PATIENT AND .
--- NOTE | 2019-08-31 15:45 | NUR ---
NEUROLOGY SERVICES DR. MARTIN IN THE UNIT. FULL REPORT GIVEN TO DR. MARTIN SEE ORDER HISTORY FOR NEW ORDERS. DR. MARTIN AT BEDSIDE ASSESSING THE PATIENT.
[2019-08-31] MEDS: SUCRALFATE 1 G TABLET PO SCH (17:08)
--- NOTE | 2019-08-31 20:00 | NUR ---
patient alert x1 to name follow simple commands otherwise confused . patient noted to be removing the Vapotherm hi flow 02 when off saturation 90 to 91 % WHEN ON 100%,reorientation education done ,placed soft wrist restraints for safety patient removing equipment . peg tube in placed and on Glucerna at 20 ml/hr ,aspiration precaution observed and hob up .
--- NOTE | 2019-08-31 20:39 | NUR ---
chest tube inplaced right lateral upper chest area , to continuous 20 cm wall suction . + fluctuation,+ bubbling ,reinforced dressing to the chest tube site secured with tape . forceps /clamp at bedside .
[2019-08-31] MEDS: TAMSULOSIN HCL 0.4 MG CAP.SR.24H PO SCH (21:04)
[2019-08-31] MEDS: ATORVASTATIN 10 MG TABLET PO SCH (21:05)
--- NOTE | 2019-08-31 22:00 | NUR ---
turned and reposition and offloaded back with pillow ,upper and lower extremities elevated with pillows heels off bed . suction via mouth ,oral care done . non productive cough .hob up .
[2019-09-01] VITALS (24 sets, daily range): BP systolic 91–148; BP diastolic 38–77
--- NOTE | 2019-09-01 01:00 | NUR ---
on and off asleep . open eyes spontaneously ,patient confused alert only to name . turned and reposition .
[2019-09-01] MEDS: VANCOMYCIN IV 1,000 MG in IV DEXTROSE 5% 250 ML IV SCH ×2 (01:06→13:59)
[2019-09-01] MEDS: MEROPENEM 1 G in IV NORMAL SALINE 100 ML IV SCH ×3 (03:19→19:04)
--- NOTE | 2019-09-01 05:00 | NUR ---
am care done ,bath patient ,changed soiled linens and gown . z guard applied to groin and sacral area .changed peg site dressing . right chest tube in placed dressing CDI . SCD used to BLE .denies pain when asked .
[2019-09-01 05:09] LABS: BASOPHILS # (AUTO) 0.1 K/uL (0.0-8.0); BASOPHILS % (AUTO) 0.5 % (0.0-2.0); HEMATOCRIT 28.1 % (36.7-47.1); HEMOGLOBIN 9.4 g/dL (12.5-16.3); LYMPHOCYTES # (AUTO) 0.1 K/uL (20.0-40.0); LYMPHOCYTES % (AUTO) 0.9 % (20.5-51.5); MEAN CORPUSCULAR HGB CONC 33 g/dL (32.5-36.3); MEAN CORPUSCULAR VOLUME 98.6 fL (73.0-96.2); MONOCYTES # (AUTO) 0.8 K/uL (2.0-10.0); MONOCYTES % (AUTO) 5.3 % (0.0-11.0); NEUTROPHILS # (AUTO) 14.6 K/uL (1.8-8.9); NEUTROPHILS % (AUTO) 93.3 % (38.5-71.5); PLATELET COUNT (AUTO) 419 K/uL (152-348); RED BLOOD CELL COUNT(AUTO) 2.85 MIL/uL (4.06-5.63); WHITE BLOOD COUNT (AUTO) 15.6 K/uL (3.6-10.2)
[2019-09-01 05:24] LABS: CREATININE 0.8 mg/dL (0.6-1.3); MAGNESIUM 2.5 mg/dL (1.8-2.4); PHOSPHOROUS 2.6 mg/dL (2.5-4.9); POTASSIUM 4.3 mmol/L (3.5-5.1)
[2019-09-01] MEDS: LEVOTHYROXINE SODIUM 25 MCG TABLET PO SCH (06:29)
--- NOTE | 2019-09-01 07:30 | NUR ---
Received report from warehouse shift supervisor nurse, patient in bed asleep, on high flow oxygen fio2 50%. Patient is sinus rhythm on the monitor with pvc's, venegas draining, and gtube clamped. Patient is on a first step mattress, scd's on, suction set up at bedside. Chest tube on right thorax. All needs met at this time, will continue to monitor.
[2019-09-01] MEDS: ALBUTEROL SULFATE 2.5 MG/3 ML NEBU NEB SCH ×4 (07:32→21:17)
[2019-09-01] MEDS: IPRATROPIUM BROMIDE 0.5 MG/2.5 ML NEBU NEB SCH ×4 (07:32→21:17)
--- NOTE | 2019-09-01 09:00 | NUR ---
Patient seen by Dr. Kim.
[2019-09-01] MEDS: AMIODARONE HCL 200 MG TABLET GT SCH (09:09)
[2019-09-01] MEDS: PANTOPRAZOLE ORAL SUSPENSION 40 MG SUSPDR.PKT GT SCH (09:09)
[2019-09-01] MEDS: methylPREDNISolone SOD SUCC 40 MG/ML VIAL IV SCH ×2 (09:10→21:04)
[2019-09-01] MEDS: ASCORBIC ACID 500 MG TABLET PEG SCH (09:10)
[2019-09-01] MEDS: levETIRAcetam 500 MG/5 ML LIQUID UDC PEG SCH ×2 (09:10→21:03)
[2019-09-01] MEDS: Z GUARD REMEDY PASTE 57 GM TUBE TOP SCH ×2 (09:11→21:06)
--- NOTE | 2019-09-01 10:00 | NUR ---
Patient seen by Dr Farias.
[2019-09-01 10:03] LABS: ABG BASE EXCESS 2.8 mmol/L; ABG HCO3 24.6 mmol/L; ABG PCO2 28.4 mmHg (35.0-45.0); ABG PH 7.556 (7.350-7.450); ABG PO2 77.6 mmHg (75.0-100.0); ABG SITE RIGHT BRACHIAL; ABG TOTAL HEMOGLOBIN 10.1 G/dL (13.5-18.0); COHb 0.9 % (0.5-1.5); MetHb 0.2 % (0.0-1.5); O2Hb 95.1 % (94.0-97.0); VENT MODE HF - Aquinox
[2019-09-01] MEDS: MORPHINE SULFATE 2 MG/1 ML DISP.SYRIN IV PRN ×2 (10:22→15:10)
--- NOTE | 2019-09-01 11:11 | NUR ---
PHARMACY CLINICAL NOTES: (VANCOMYCIN DOSING) S: To continue vanco dosing for this 83 YO male patient for MRSA and (amp sens. Enterococcus) in the abdominal wound. O: BUN/SCR 15/0.8, WBC 15.6, TEMP 97.8 ht 180 cm wt 60 kg Trough 08/27@2030: 10.4 Trough 08/30@0430: 16.4 A/P: As trough within therapeutic range, will continue same dose of vanco 1gm IVPB q14hr for today. Will continue to monitor renal function and re-order level or adjust if were to change. Also will adjust or recheck level if on prolonged course or condition were to change. Will follow
[2019-09-01] MEDS: GLUCERNA 1.2 1000ML LIQUID GT PRN (11:34)
--- NOTE | 2019-09-01 12:30 | NUR ---
Patient seen by Dr. Rm, and family conference to be held.
--- NOTE | 2019-09-01 13:43 | NUR ---
WOUND CARE CONSULT: PT PRESENTS WITH RASH TO PERINEUM, SACRAL/INNER BUTTOCKS AREA WELL VERY FRAGILE SKIN WITH SKIN TEARS TO ARMS. PT NOTED TO HAVE GENERALIZED EDEMA. CHEST TUBE NOTED TO RT CHEST. RECOMMENDATIONS MADE FOR SKIN PROTECTION. DISCUSSED WITH NURSING STAFF. PT ON [facility] STEP [facility]. WILL SEE PRN. POWERS IN AGREEMENT WITH PLAN OF CARE. Addendum: 09/01/19 at 1345 by MULU TIAN RN Amended: Links added.
[2019-09-01] MEDS: CLOTRIMAZOLE 1% CREAM 30 GM TUBE TOP SCH (18:27)
[2019-09-01] MEDS: ATORVASTATIN 10 MG TABLET GT SCH (21:03)
[2019-09-01] MEDS: ZOLPIDEM 5 MG TABLET PEG PRN (21:05)
[2019-09-01] MEDS: TAMSULOSIN HCL 0.4 MG CAP.SR.24H XX SCH (21:05)
[2019-09-01] MEDS: HYDROCODONE/APAP 5-325MG TABLET PEG PRN (21:05)
[2019-09-01] MEDS: IV NORMAL SALINE 250 ML IV PRN (22:46)
[2019-09-02] VITALS (24 sets, daily range): BP systolic 97–154; BP diastolic 45–75
--- NOTE | 2019-09-02 02:49 | NUR ---
PT ON HIGH FLOW N/C @ 30L/M @ 40% FIO2 . D ANDREW SAND CASTER Addendum: 09/02/19 at 0249 by JESSICA MORALES RT Amended: Links added.
[2019-09-02] MEDS: MEROPENEM 1 G in IV NORMAL SALINE 100 ML IV SCH ×3 (03:00→19:38)
[2019-09-02] MEDS: VANCOMYCIN IV 1,000 MG in IV DEXTROSE 5% 250 ML IV SCH ×2 (03:00→17:18)
[2019-09-02 06:03] LABS: BASOPHILS # (AUTO) 0.1 K/uL (0.0-8.0); BASOPHILS % (AUTO) 0.3 % (0.0-2.0); HEMATOCRIT 31.4 % (36.7-47.1); HEMOGLOBIN 10.3 g/dL (12.5-16.3); LYMPHOCYTES # (AUTO) 0.2 K/uL (20.0-40.0); LYMPHOCYTES % (AUTO) 0.7 % (20.5-51.5); MEAN CORPUSCULAR HEMOGLOBIN 32.7 uug (23.8-33.4); MEAN CORPUSCULAR HGB CONC 33 g/dL (32.5-36.3); MEAN CORPUSCULAR VOLUME 99.6 fL (73.0-96.2); MONOCYTES # (AUTO) 0.9 K/uL (2.0-10.0); MONOCYTES % (AUTO) 4.4 % (0.0-11.0); NEUTROPHILS # (AUTO) 19.4 K/uL (1.8-8.9); NEUTROPHILS % (AUTO) 94.6 % (38.5-71.5); PLATELET COUNT (AUTO) 493 K/uL (152-348); RED BLOOD CELL COUNT(AUTO) 3.15 MIL/uL (4.06-5.63); WHITE BLOOD COUNT (AUTO) 20.5 K/uL (3.6-10.2)
[2019-09-02 06:12] LABS: CREATININE 0.9 mg/dL (0.6-1.3); MAGNESIUM 2.4 mg/dL (1.8-2.4); PHOSPHOROUS 2.4 mg/dL (2.5-4.9); POTASSIUM 4.5 mmol/L (3.5-5.1)
[2019-09-02] MEDS: LEVOTHYROXINE SODIUM 25 MCG TABLET PO SCH (06:58)
[2019-09-02] MEDS: IPRATROPIUM BROMIDE 0.5 MG/2.5 ML NEBU NEB SCH ×4 (07:34→19:43)
[2019-09-02] MEDS: ALBUTEROL SULFATE 2.5 MG/3 ML NEBU NEB SCH ×4 (07:34→19:43)
[2019-09-02] MEDS: PANTOPRAZOLE ORAL SUSPENSION 40 MG SUSPDR.PKT GT SCH (08:27)
[2019-09-02] MEDS: ASCORBIC ACID 500 MG TABLET PEG SCH (08:27)
[2019-09-02] MEDS: methylPREDNISolone SOD SUCC 40 MG/ML VIAL IV SCH ×2 (08:27→20:30)
[2019-09-02] MEDS: AMIODARONE HCL 200 MG TABLET GT SCH (08:27)
[2019-09-02] MEDS: Z GUARD REMEDY PASTE 57 GM TUBE TOP SCH ×2 (08:27→20:30)
[2019-09-02] MEDS: CLOTRIMAZOLE 1% CREAM 30 GM TUBE TOP SCH ×2 (08:28→17:14)
[2019-09-02] MEDS: levETIRAcetam 500 MG/5 ML LIQUID UDC PEG SCH ×2 (08:29→20:30)
--- NOTE | 2019-09-02 09:09 | NUR ---
PHARMACY CLINICAL NOTES: (VANCOMYCIN DOSING) S: To continue vanco dosing for this 83 YO male patient for MRSA and (amp sens. Enterococcus) in the abdominal wound. O: BUN/SCR 19/0.9, WBC 2.05, TEMP 98.4 ht 180 cm wt 60 kg Trough 08/27@2030: 10.4 Trough 08/30@0430: 16.4 A/P: Will continue same dose of vanco 1gm IVPB q14hr for today. Since BUN increased, will repeat vanco trough level on 09/02 at 0630am. Pharmacy will review the level & adjust the dose if needed. Will follow
--- NOTE | 2019-09-02 10:07 | NUR ---
Dr. Farias here to see pt. Full report given. New orders received.
[2019-09-02] MEDS: GLUCERNA 1.2 1000ML LIQUID GT PRN (10:14)
--- NOTE | 2019-09-02 11:57 | NUR ---
Dr. Kim here to see pt. Full report given. No new orders received.
--- NOTE | 2019-09-02 12:46 | NUR ---
OXANA Gates here to see pt. Full report given. New orders received.
[2019-09-02] MEDS ORDERED: NEUTRA PHOS PACKET PO ONE (15:15)
--- NOTE | 2019-09-02 16:10 | NUR ---
Dr. Latif here to see pt. Full report given. New orders received.
[2019-09-02] MEDS ORDERED: SUCRALFATE 1 G/10 ML LIQUID UDC GT SCH (17:00)
[2019-09-02] MEDS: TAMSULOSIN HCL 0.4 MG CAP.SR.24H XX SCH (20:30)
[2019-09-02] MEDS: ATORVASTATIN 10 MG TABLET GT SCH (20:30)
--- NOTE | 2019-09-02 21:55 | NUR ---
With RT N/T sx large amount thick brown lance secretions & mucus plugs. Running GT feeding @ 20 ml / hr @ present / high residual. Remains sedate.
[2019-09-03] VITALS (23 sets, daily range): BP systolic 90–123; BP diastolic 46–85
[2019-09-03] MEDS: MEROPENEM 1 G in IV NORMAL SALINE 100 ML IV SCH ×3 (02:16→20:20)
--- NOTE | 2019-09-03 04:48 | NUR ---
PT ON CONT HIGH FLOW N/C @ 30L/M @ 40%, STABLE. Kristen MORALES HYDROLOGIC ENGINEER Addendum: 09/03/19 at 0449 by JESSICA MORALES RT Amended: Links added.
[2019-09-03] MEDS: LEVOTHYROXINE SODIUM 25 MCG TABLET PO SCH (06:19)
[2019-09-03] MEDS: ALBUTEROL SULFATE 2.5 MG/3 ML NEBU NEB SCH ×4 (07:04→20:35)
[2019-09-03] MEDS: IPRATROPIUM BROMIDE 0.5 MG/2.5 ML NEBU NEB SCH ×4 (07:04→20:35)
[2019-09-03] MEDS: PANTOPRAZOLE ORAL SUSPENSION 40 MG SUSPDR.PKT GT SCH (07:35)
[2019-09-03] MEDS: ASCORBIC ACID 500 MG TABLET PEG SCH (07:35)
[2019-09-03] MEDS: methylPREDNISolone SOD SUCC 40 MG/ML VIAL IV SCH ×2 (07:36→20:35)
[2019-09-03] MEDS: AMIODARONE HCL 200 MG TABLET GT SCH (07:36)
[2019-09-03] MEDS: levETIRAcetam 500 MG/5 ML LIQUID UDC PEG SCH ×2 (07:36→20:35)
[2019-09-03] MEDS: Z GUARD REMEDY PASTE 57 GM TUBE TOP SCH ×2 (07:37→20:36)
[2019-09-03] MEDS: CLOTRIMAZOLE 1% CREAM 30 GM TUBE TOP SCH ×2 (07:38→16:28)
[2019-09-03] MEDS: MODAFINIL 100 MG TABLET PO SCH (07:39)
[2019-09-03 08:44] LABS: BASOPHILS % (AUTO) 0.1 % (0.0-2.0); HEMATOCRIT 31.6 % (36.7-47.1); HEMOGLOBIN 10.3 g/dL (12.5-16.3); LYMPHOCYTES # (AUTO) 0.3 K/uL (20.0-40.0); LYMPHOCYTES % (AUTO) 1.7 % (20.5-51.5); MEAN CORPUSCULAR HEMOGLOBIN 32.5 uug (23.8-33.4); MEAN CORPUSCULAR HGB CONC 33 g/dL (32.5-36.3); MEAN CORPUSCULAR VOLUME 99.5 fL (73.0-96.2); MONOCYTES # (AUTO) 0.8 K/uL (2.0-10.0); MONOCYTES % (AUTO) 4.8 % (0.0-11.0); NEUTROPHILS # (AUTO) 16.4 K/uL (1.8-8.9); NEUTROPHILS % (AUTO) 93.4 % (38.5-71.5); PLATELET COUNT (AUTO) 381 K/uL (152-348); RED BLOOD CELL COUNT(AUTO) 3.17 MIL/uL (4.06-5.63); WHITE BLOOD COUNT (AUTO) 17.5 K/uL (3.6-10.2)
--- NOTE | 2019-09-03 09:30 | NUR ---
Dr. Farias here to see pt. Full report given. New orders received.
[2019-09-03 09:46] LABS: LYMPHOCYTES % (MANUAL) 5 % (20-40); MONOCYTES % (MANUAL) 3 % (2-10); NEUTROPHILS % (MANUAL) 92 % (42-75)
[2019-09-03] MEDS: GLUCERNA 1.2 1000ML LIQUID GT PRN (10:00)
--- NOTE | 2019-09-03 10:17 | NUR ---
PHARMACY CLINICAL NOTES: (VANCOMYCIN DOSING) S: To continue vanco dosing for this 83 YO male patient for MRSA and (amp sens. Enterococcus) in the abdominal wound. O: BUN/SCR 19/0.9 (), WBC 20.5 (), TEMP 98.2 ht 180 cm wt 60 kg Trough 08/27@2030: 10.4 Trough 08/30@0430: 16.4 Trough today at 0630: 20.5 A/P: Based on today's repeat trough, will adjust regimen to vanco 1gm q16hr for new estimated trough of 16.5, first dose today at 1400. Will order trough before 4th scheduled dose (not ordered yet). Will follow and adjust as needed
--- NOTE | 2019-09-03 11:34 | NUR ---
PT PLACED ON 3LPM NASAL CANULA. SPO2 WITHIN NORMAL LIMITS. PT SHOWS NO SIGNS OF RESP DISTRESS
--- NOTE | 2019-09-03 11:49 | NUR ---
Dr. Kim here to see pt. Full report given. New orders received.
[2019-09-03 12:11] LABS: CARBON DIOXIDE 26 mmol/L (21-32); CHLORIDE 108 mmol/L (98-107); CREATININE 0.7 mg/dL (0.6-1.3); GLUCOSE 147 mg/dL (74-106); MAGNESIUM 2.5 mg/dL (1.8-2.4); PHOSPHOROUS 2.9 mg/dL (2.5-4.9); UREA NITROGEN, BLOOD 21 mg/dL (7-18)
[2019-09-03] MEDS ORDERED: FUROSEMIDE 20 MG/2 ML VIAL IV ONE (12:15)
--- NOTE | 2019-09-03 13:14 | NUR ---
OXANA Rm here to see pt. Full report given. No new orders received. Pt to remain in the CCU.
[2019-09-03] MEDS: VANCOMYCIN IV 1,000 MG in IV DEXTROSE 5% 250 ML IV SCH (14:12)
[2019-09-03] MEDS: TAMSULOSIN HCL 0.4 MG CAP.SR.24H XX SCH (20:35)
[2019-09-03] MEDS: ATORVASTATIN 10 MG TABLET GT SCH (20:36)
[2019-09-03] MEDS: HYDROCODONE/APAP 5-325MG TABLET PEG PRN (21:36)
[2019-09-04] VITALS (24 sets, daily range): BP systolic 94–159; BP diastolic 42–86
[2019-09-04] MEDS: MEROPENEM 1 G in IV NORMAL SALINE 100 ML IV SCH ×3 (02:55→19:10)
[2019-09-04] MEDS: HYDROCODONE/APAP 5-325MG TABLET PEG PRN ×3 (02:57→17:40)
[2019-09-04] MEDS: IV NORMAL SALINE 250 ML IV PRN (03:08)
--- NOTE | 2019-09-04 06:40 | NUR ---
See critical lab flow-sheet. Received X-ray report. Notified Dr Da Silva. Resume 20 cm under water pleuravac sx. Dr Farias to evaluate.
[2019-09-04] MEDS: VANCOMYCIN IV 1,000 MG in IV DEXTROSE 5% 250 ML IV SCH (06:43)
[2019-09-04] MEDS: LEVOTHYROXINE SODIUM 25 MCG TABLET PO SCH (06:43)
--- NOTE | 2019-09-04 06:50 | NUR ---
Jeevan Rm N.P. at bedside. Aware to resume 20 cm pleurevac suction. To resume high flow N/C 30L, FiO2 40%. Dr Farias to evaluate.
--- NOTE | 2019-09-04 07:15 | NUR ---
Received report from police shift commander nurse, patient is currently being put back on high flow oxygen per orders received earlier this morning. Blood draw unable to be obtained, will try again soon. Patient in bed asleep, no apparent distress noted at this time, venegas draining cloudy yellow urine, air mattress inflated, chest tube on right lung to suction, crepitus noted on chest and subcutaneous air noted below right neck area. air mattress inflated and scd's off per patient request.
--- NOTE | 2019-09-04 07:30 | NUR ---
Patient seen by Dr. Farias, recommended titrating off of Now initiated High flow oxygen back to nasal cannula. Patient saturation stable.
[2019-09-04 08:00] LABS: CREATININE 0.9 mg/dL (0.6-1.3); MAGNESIUM 2.6 mg/dL (1.8-2.4); PHOSPHOROUS 3.1 mg/dL (2.5-4.9); POTASSIUM 5.1 mmol/L (3.5-5.1)
[2019-09-04] MEDS: ALBUTEROL SULFATE 2.5 MG/3 ML NEBU NEB SCH ×4 (08:04→19:49)
[2019-09-04] MEDS: IPRATROPIUM BROMIDE 0.5 MG/2.5 ML NEBU NEB SCH ×4 (08:04→19:49)
[2019-09-04 08:17] LABS: BASOPHILS # (AUTO) 0.2 K/uL (0.0-8.0); HEMATOCRIT 33.5 % (36.7-47.1); HEMOGLOBIN 10.9 g/dL (12.5-16.3); LYMPHOCYTES # (AUTO) 0.2 K/uL (20.0-40.0); LYMPHOCYTES % (AUTO) 0.9 % (20.5-51.5); MEAN CORPUSCULAR HEMOGLOBIN 32.9 uug (23.8-33.4); MEAN CORPUSCULAR HGB CONC 32 g/dL (32.5-36.3); MEAN CORPUSCULAR VOLUME 101.5 fL (73.0-96.2); MONOCYTES # (AUTO) 0.7 K/uL (2.0-10.0); MONOCYTES % (AUTO) 3.9 % (0.0-11.0); NEUTROPHILS # (AUTO) 17.1 K/uL (1.8-8.9); NEUTROPHILS % (AUTO) 94.2 % (38.5-71.5); PLATELET COUNT (AUTO) 340 K/uL (152-348); WHITE BLOOD COUNT (AUTO) 18.2 K/uL (3.6-10.2)
[2019-09-04] MEDS: AMIODARONE HCL 200 MG TABLET GT SCH (09:09)
[2019-09-04] MEDS: ASCORBIC ACID 500 MG TABLET PEG SCH (09:10)
[2019-09-04] MEDS: PANTOPRAZOLE ORAL SUSPENSION 40 MG SUSPDR.PKT GT SCH (09:10)
[2019-09-04] MEDS: MODAFINIL 100 MG TABLET PO SCH (09:10)
[2019-09-04] MEDS: CLOTRIMAZOLE 1% CREAM 30 GM TUBE TOP SCH ×2 (09:11→17:41)
[2019-09-04] MEDS: levETIRAcetam 500 MG/5 ML LIQUID UDC PEG SCH ×2 (09:12→20:13)
[2019-09-04] MEDS: Z GUARD REMEDY PASTE 57 GM TUBE TOP SCH ×2 (09:12→20:14)
[2019-09-04] MEDS: methylPREDNISolone SOD SUCC 40 MG/ML VIAL IV SCH ×2 (09:21→20:13)
--- NOTE | 2019-09-04 09:40 | NUR ---
Patient seen by Dr. Kim.
[2019-09-04] MEDS: GLUCERNA 1.2 1000ML LIQUID GT PRN (10:08)
--- NOTE | 2019-09-04 13:42 | NUR ---
PHARMACY CLINICAL NOTES: (VANCOMYCIN DOSING) S: To continue vanco dosing for this 83 YO male patient for MRSA and (amp sens. Enterococcus) in the abdominal wound. O: BUN/SCR 19/0.9 (), WBC 20.5 (), TEMP 98.2 ht 180 cm wt 60 kg Trough 08/27@2030: 10.4 Trough 08/30@0430: 16.4 Trough 09/02 at 0630: 20.5 A/P: Will continue regimen of vanco 1gm q16hr for new estimated trough of 16.5, third dose today at 2200. Will order trough before 4th scheduled dose (ordered for tomorrow at 1330). Will follow and adjust as needed
--- NOTE | 2019-09-04 14:00 | NUR ---
Contacted Yajaira Rm about patient's declining BP and cloudy urine. orders received for urine to be sent.
[2019-09-04 15:18] LABS: *BILIRUBIN,URIN NEGATIVE (NEGATIVE); *BLOOD, URINE 2+ (NEGATIVE); *CLARITY,URINE CLEAR (CLEAR); *COLOR,URINE YELLOW (YELLOW); *KETONES,URINE NEGATIVE (NEGATIVE); *UROBILINOGEN,URINE 0.2 E.U./dl (NORMAL); LEUKOCYTE ESTERASE ,URINE NEGATIVE (NEGATIVE); NITRITE, URINE NEGATIVE (NEGATIVE); UGLUCOSE NEGATIVE (NEGATIVE)
[2019-09-04 15:31] LABS: BACTERIA,URINE NONE SEEN /HPF (NONE SEEN); RBC,URINE 20-50 /HPF (0-3); SQUAMOUS EPITHELIAL CELL,UR FEW /HPF (NONE SEEN)
--- NOTE | 2019-09-04 19:02 | NUR ---
Patient has been cooperative with care. Patient experiencing generalized pain and relieved with norco x2 today. Patient has had no concerns with breathing throughout shift, o2 saturations maintained above 95%. Chest tube to suction -20, venegas draining with output of 850 cc, air mattress inflated, tube feeding tolerated @ 70cc/hr (Glucerna). Patient still has crepitus and subcutaneous air below right neck area. Wound care performed today and patient frequently repositioned and oral care done. All needs met, will endorse to music internship nurse.
--- NOTE | 2019-09-04 20:00 | NUR ---
patients in bed alert x1,otherwise confused . 02 nasal cannula at 3 liters /min ,tolerating 02 no respiratory distress noted rr 20 to 21 saturation 98% ,right upper lateral chest tube patent dressing cdi ,with small straw colored residual ,atrium ,20 cm water suction,patent + fluctuation + bubbling + small crepitus + small subcutaneous emphysema to the right anterior neck and to the site chest tube continue to monitor and palpate for crepitus.turned and reposition patient had a small bm form blackish in color ,changed soiled linens and gown,applied z guard to sacral and perianal and bilateral groin . f/c to bsd with yellowish urine .oral care done and hob up .
[2019-09-04] MEDS: ATORVASTATIN 10 MG TABLET GT SCH (20:13)
[2019-09-04] MEDS: TAMSULOSIN HCL 0.4 MG CAP.SR.24H XX SCH (20:13)
--- NOTE | 2019-09-04 20:15 | NUR ---
patient screaming for help went to the room and checked patient asked patient wants wrong unable to say asked if his in pain he said yes . patient unable to locate where's the pain and unable scale . facial grimace noted and patient anxious .given prn Tylenol for pain .
[2019-09-04] MEDS: ACETAMINOPHEN 325 MG TABLET PO PRN (20:24)
--- NOTE | 2019-09-04 20:40 | NUR ---
seen and visited by OXANA BECK ,ID and with orders to D/C ANTX ,vancomycin and Merrem.
[2019-09-05] VITALS (23 sets, daily range): BP systolic 100–135; BP diastolic 52–83
[2019-09-05] MEDS: HYDROCODONE/APAP 5-325MG TABLET PEG PRN ×4 (01:50→22:40)
--- NOTE | 2019-09-05 04:00 | NUR ---
incontinent of stool moderate soft blackish in color .changed soiled linens and gown . z guard applied to bilateral groin and sacral area .
[2019-09-05 05:20] LABS: BASOPHILS # (AUTO) 0.3 K/uL (0.0-8.0); BASOPHILS % (AUTO) 1.4 % (0.0-2.0); HEMATOCRIT 30.8 % (36.7-47.1); LYMPHOCYTES # (AUTO) 0.1 K/uL (20.0-40.0); LYMPHOCYTES % (AUTO) 0.8 % (20.5-51.5); MEAN CORPUSCULAR HEMOGLOBIN 32.7 uug (23.8-33.4); MEAN CORPUSCULAR HGB CONC 33 g/dL (32.5-36.3); MEAN CORPUSCULAR VOLUME 100.3 fL (73.0-96.2); MONOCYTES # (AUTO) 0.5 K/uL (2.0-10.0); MONOCYTES % (AUTO) 2.7 % (0.0-11.0); NEUTROPHILS # (AUTO) 17.7 K/uL (1.8-8.9); NEUTROPHILS % (AUTO) 95.1 % (38.5-71.5); PLATELET COUNT (AUTO) 302 K/uL (152-348); RED BLOOD CELL COUNT(AUTO) 3.07 MIL/uL (4.06-5.63); WHITE BLOOD COUNT (AUTO) 18.6 K/uL (3.6-10.2)
[2019-09-05 05:39] LABS: CREATININE 0.6 mg/dL (0.6-1.3); MAGNESIUM 2.5 mg/dL (1.8-2.4); PHOSPHOROUS 3.1 mg/dL (2.5-4.9); POTASSIUM 4.7 mmol/L (3.5-5.1)
--- NOTE | 2019-09-05 06:00 | NUR ---
patient had another bm soft moderate in amt .changed soiled linens and gown . f/c to bsd yellowish in color . patient keep reaching to the f/c and peg site , applied restraints .
[2019-09-05] MEDS: LEVOTHYROXINE SODIUM 25 MCG TABLET PO SCH (06:13)
[2019-09-05] MEDS: IV NORMAL SALINE 250 ML IV PRN (06:16)
[2019-09-05 07:39] LABS: ABG BASE EXCESS 3.3 mmol/L; ABG HCO3 25.2 mmol/L; ABG PCO2 30.2 mmHg (35.0-45.0); ABG PH 7.539 (7.350-7.450); ABG PO2 53.4 mmHg (75.0-100.0); ABG SITE LEFT RADIAL; ABG TOTAL HEMOGLOBIN 12.6 G/dL (13.5-18.0); COHb 1.8 % (0.5-1.5); MetHb 0.4 % (0.0-1.5); O2Hb 86.8 % (94.0-97.0); VENT MODE Nasal Cannula
[2019-09-05] MEDS: IPRATROPIUM BROMIDE 0.5 MG/2.5 ML NEBU NEB SCH ×4 (07:44→19:25)
[2019-09-05] MEDS: ALBUTEROL SULFATE 2.5 MG/3 ML NEBU NEB SCH ×4 (07:44→19:25)
--- NOTE | 2019-09-05 08:00 | NUR ---
YOGI MCDONALD IN THE UNIT TO SEE PATIENT. PROVIDED UPDATE OF THE PATIENT AND WILL FOLLOW UP WITH THE REGARDING PROGNOSIS. PATIENT WAS PLACED ON HIGH FLOW DUE TO ABG RESULTS. RT OLIT PLACED PATIENT BACK ON HIGH FLOW.
[2019-09-05] MEDS: MODAFINIL 100 MG TABLET PO SCH (08:13)
[2019-09-05] MEDS: AMIODARONE HCL 200 MG TABLET GT SCH (08:13)
[2019-09-05] MEDS: PANTOPRAZOLE ORAL SUSPENSION 40 MG SUSPDR.PKT GT SCH (08:14)
[2019-09-05] MEDS: ASCORBIC ACID 500 MG TABLET PEG SCH (08:14)
[2019-09-05] MEDS: levETIRAcetam 500 MG/5 ML LIQUID UDC PEG SCH ×2 (08:15→21:09)
[2019-09-05] MEDS: methylPREDNISolone SOD SUCC 40 MG/ML VIAL IV SCH ×2 (08:15→21:09)
[2019-09-05] MEDS: Z GUARD REMEDY PASTE 57 GM TUBE TOP SCH ×2 (08:17→21:09)
[2019-09-05] MEDS: CLOTRIMAZOLE 1% CREAM 30 GM TUBE TOP SCH ×2 (08:17→17:26)
--- NOTE | 2019-09-05 11:59 | NUR ---
HARRY IN THE UNIT SPOKE TO FAMILY REGARDING TREATEMENT. FULL TREATMENT IS STILL EXPECTED AND CONTINUE DNR/DNI STATUS.
--- NOTE | 2019-09-05 12:01 | NUR ---
HARRY LACY OVERVIEWED THE CASE AND UPDATED NENA WITH CXR, CT, ABG'S. DR. BARRETT IN THE ROOM SPEAKING TO FAMILY
--- NOTE | 2019-09-05 14:00 | NUR ---
Restraints removed. Patient is not removing any medical equipment.
--- NOTE | 2019-09-05 19:10 | NUR ---
received patient awake , able to follow simple command , restless , on high flow at 50 % , gt feeding at 70 ml /hr , no drainage on gt site , venegas intact , picc line left upper arm , intact
[2019-09-05] MEDS: TAMSULOSIN HCL 0.4 MG CAP.SR.24H XX SCH (21:09)
[2019-09-05] MEDS: ATORVASTATIN 10 MG TABLET GT SCH (21:09)
--- NOTE | 2019-09-05 23:17 | NUR ---
PATIENT BREATHING IS BEING MONITORED AND OXYGEN IS BEING TITRATED ACCORDINGLY Addendum: 09/05/19 at 2317 by REDD GOTTI RN Amended: Eve horner. Addendum: 09/05/19 at 2317 by REDD GOTTI RN Amended: Eve horner.
--- NOTE | 2019-09-05 23:17 | NUR ---
PATIENT BREATHING IS BEING MONITORED AND OXYGEN IS BEING TITRATED ACCORDINGLY Addendum: 09/05/19 at 2317 by REDD GOTTI RN Amended: Links added.
--- NOTE | 2019-09-05 23:18 | NUR ---
* Performs deep breathing and coughing * Exhibits no adventitious breath sounds * Maintains adequate ventilation Addendum: 09/05/19 at 2318 by REDD GOTTI RN Amended: Eve added. Addendum: 09/05/19 at 2319 by REDD GOTTI RN Amended: Eve added.
--- NOTE | 2019-09-05 23:18 | NUR ---
* Maintains vital signs WNL * Maintains optimal lab values Addendum: 09/05/19 at 2319 by REDD GOTTI RN Amended: Links added.
[2019-09-06] VITALS (26 sets, daily range): BP systolic 93–140; BP diastolic 40–85
--- NOTE | 2019-09-06 03:32 | NUR ---
* Maintains vital signs WNL * Maintains optimal lab values Addendum: 09/06/19 at 0332 by REDD GOTTI RN Amended: Links added.
--- NOTE | 2019-09-06 03:32 | NUR ---
Maintains vital signs WNL * Maintains optimal lab values Addendum: 09/06/19 at 0332 by REDD GOTTI RN Amended: Links added.
--- NOTE | 2019-09-06 06:00 | NUR ---
patient is awake , confused , high flow at 50 % , chest tube right lateral site intact , venegas and gt intact , so sob , picc line intact
[2019-09-06 06:04] LABS: BASOPHILS # (AUTO) 0.1 K/uL (0.0-8.0); BASOPHILS % (AUTO) 0.3 % (0.0-2.0); HEMATOCRIT 30.8 % (36.7-47.1); LYMPHOCYTES # (AUTO) 0.1 K/uL (20.0-40.0); LYMPHOCYTES % (AUTO) 0.7 % (20.5-51.5); MEAN CORPUSCULAR HEMOGLOBIN 32.9 uug (23.8-33.4); MEAN CORPUSCULAR HGB CONC 32 g/dL (32.5-36.3); MEAN CORPUSCULAR VOLUME 101.6 fL (73.0-96.2); MONOCYTES # (AUTO) 0.5 K/uL (2.0-10.0); MONOCYTES % (AUTO) 2.8 % (0.0-11.0); NEUTROPHILS # (AUTO) 17.3 K/uL (1.8-8.9); NEUTROPHILS % (AUTO) 96.2 % (38.5-71.5); PLATELET COUNT (AUTO) 281 K/uL (152-348); RED BLOOD CELL COUNT(AUTO) 3.03 MIL/uL (4.06-5.63)
[2019-09-06] MEDS: LEVOTHYROXINE SODIUM 25 MCG TABLET PO SCH (06:07)
[2019-09-06 06:42] LABS: CREATININE 0.8 mg/dL (0.6-1.3)
[2019-09-06] MEDS: IPRATROPIUM BROMIDE 0.5 MG/2.5 ML NEBU NEB SCH ×4 (07:13→19:49)
[2019-09-06] MEDS: ALBUTEROL SULFATE 2.5 MG/3 ML NEBU NEB SCH ×4 (07:13→19:49)
[2019-09-06] MEDS: MODAFINIL 100 MG TABLET PO SCH (08:03)
[2019-09-06] MEDS: AMIODARONE HCL 200 MG TABLET GT SCH (08:04)
[2019-09-06] MEDS: methylPREDNISolone SOD SUCC 40 MG/ML VIAL IV SCH ×2 (08:04→20:23)
[2019-09-06] MEDS: PANTOPRAZOLE ORAL SUSPENSION 40 MG SUSPDR.PKT GT SCH (08:04)
[2019-09-06] MEDS: ASCORBIC ACID 500 MG TABLET PEG SCH (08:04)
[2019-09-06] MEDS: HYDROCODONE/APAP 5-325MG TABLET PEG PRN ×2 (08:04→23:10)
[2019-09-06] MEDS: levETIRAcetam 500 MG/5 ML LIQUID UDC PEG SCH ×2 (08:04→20:22)
[2019-09-06] MEDS: Z GUARD REMEDY PASTE 57 GM TUBE TOP SCH ×2 (08:05→20:23)
[2019-09-06] MEDS: CLOTRIMAZOLE 1% CREAM 30 GM TUBE TOP SCH ×2 (08:06→16:29)
--- NOTE | 2019-09-06 08:30 | NUR ---
Attending Marie Morris in the unit to see and examine patient, report given orders to continue with care plan received.
[2019-09-06 09:28] LABS: ABG BASE EXCESS 5.3 mmol/L; ABG HCO3 28.4 mmol/L; ABG PCO2 35.7 mmHg (35.0-45.0); ABG PH 7.518 (7.350-7.450); ABG PO2 89.7 mmHg (75.0-100.0); ABG SITE RIGHT RADIAL; ABG TOTAL HEMOGLOBIN 9.9 G/dL (13.5-18.0); COHb 1.1 % (0.5-1.5); MetHb 0.2 % (0.0-1.5); O2Hb 95.8 % (94.0-97.0); VENT MODE HF - 50%
--- NOTE | 2019-09-06 10:14 | NUR ---
Patient restless agitated screaming out "bring my right now, I wanna go home right now I don't want any treatment." Patient reoriented, medicated for pain earlier. Oral care provided.
[2019-09-06] MEDS: GLUCERNA 1.2 1000ML LIQUID GT PRN (11:34)
--- NOTE | 2019-09-06 13:45 | NUR ---
Attending Abel Fox at bedside as requested by both Pt and pt's . As patient wants to talk to Him and wants to be send home with hospice.
[2019-09-06] MEDS: IV NORMAL SALINE 250 ML IV PRN (16:28)
--- NOTE | 2019-09-06 17:30 | NUR ---
Patient becoming restless and agitated and pulling off venegas catheter and G-tube. patient confused. orders for [facility] obtained and implemented.
--- NOTE | 2019-09-06 19:45 | NUR ---
Alaina came and saw patient examined patient at b/s.called patient (Chelsea)and patients son .patient and son came and had a long lengthy conversation with gabriela GOVEA .
--- NOTE | 2019-09-06 20:00 | NUR ---
rounds made patient in bed ,alert x1 ,follow and understand simple commands ,patient able to verbalized needs . tolerating 02 fi flow at 30 liters and fio2 of 50% saturation 100% rr 19.no respiratory distress noted ,breathing even and unlabored .hob up . right lateral side chest tube patent ,dressing clean dry and intact ,to 20cm low continuous wall suction ,no air leak noted , positive bubbling,fluctuation + very small crepitus /sq emphysema to the right side of the neck and around the chest tube site .f/c to bsd and tube feeding in progress .continue to monitor v/s and levels of comfort.
[2019-09-06] MEDS: TAMSULOSIN HCL 0.4 MG CAP.SR.24H XX SCH (20:23)
[2019-09-06] MEDS: ATORVASTATIN 10 MG TABLET GT SCH (20:25)
[2019-09-06] MEDS: ACETAMINOPHEN 325 MG TABLET PO PRN (20:25)
--- NOTE | 2019-09-06 21:00 | NUR ---
turned and reposition and offloaded back with pillow and bue and ble elevated pillows ,heels off the bed.hob up ,flushed peg and patent ,tube feeding tolerated residual 10 ml only due medication given crushed and given via peg . .
--- NOTE | 2019-09-06 21:15 | NUR ---
spoked with DR:HARRY informed about him patient on and off screaming and calling for help and wants to call ,on and off restless , and still in pain even after Tylenol was given prn .with order to given morphine 1 mg ivp x1.
[2019-09-06] MEDS ORDERED: MORPHINE SULFATE 2 MG/1 ML DISP.SYRIN IVP ONE (21:30)
--- NOTE | 2019-09-06 22:03 | NUR ---
patient noted to be very restless and screaming for help .asked patient if his in pain he said yes but unable to scale and locate pain . given x1 morphine 1mg ivp . continue to monitor for pain levels .
[2019-09-07] VITALS (24 sets, daily range): BP systolic 92–132; BP diastolic 52–70
--- NOTE | 2019-09-07 01:00 | NUR ---
sleeping in bed no s/s of pain breathing even and unlabored . saturation 98 % rr 17.remains of hi flow 02.
--- NOTE | 2019-09-07 04:00 | NUR ---
am care done ,bath patient changed soiled linens and gown , applied z guard to bilateral groin /scrotum and penile area .f/c done . suction via mouth and oral care done .
--- NOTE | 2019-09-07 05:37 | NUR ---
respiratory therapist at b/s for am ABG .
[2019-09-07 05:50] LABS: ABG BASE EXCESS 3.6 mmol/L; ABG HCO3 26.2 mmol/L; ABG PCO2 32.1 mmHg (35.0-45.0); ABG PO2 52.5 mmHg (75.0-100.0); ABG SITE RIGHT RADIAL; ABG TOTAL HEMOGLOBIN 9.4 G/dL (13.5-18.0); COHb 1.6 % (0.5-1.5); MetHb 0.3 % (0.0-1.5); O2Hb 86.1 % (94.0-97.0); VENT MODE HF - Aquinox
[2019-09-07 06:00] LABS: BASOPHILS % (AUTO) 0.1 % (0.0-2.0); HEMATOCRIT 28.7 % (36.7-47.1); HEMOGLOBIN 9.3 g/dL (12.5-16.3); LYMPHOCYTES # (AUTO) 0.1 K/uL (20.0-40.0); LYMPHOCYTES % (AUTO) 0.7 % (20.5-51.5); MEAN CORPUSCULAR HEMOGLOBIN 33.1 uug (23.8-33.4); MEAN CORPUSCULAR HGB CONC 33 g/dL (32.5-36.3); MEAN CORPUSCULAR VOLUME 101.5 fL (73.0-96.2); MONOCYTES # (AUTO) 0.7 K/uL (2.0-10.0); MONOCYTES % (AUTO) 4.2 % (0.0-11.0); NEUTROPHILS # (AUTO) 16.4 K/uL (1.8-8.9); PLATELET COUNT (AUTO) 249 K/uL (152-348); RED BLOOD CELL COUNT(AUTO) 2.83 MIL/uL (4.06-5.63); WHITE BLOOD COUNT (AUTO) 17.2 K/uL (3.6-10.2)
[2019-09-07 06:28] LABS: CREATININE 0.8 mg/dL (0.6-1.3); POTASSIUM 4.5 mmol/L (3.5-5.1)
--- NOTE | 2019-09-07 06:30 | NUR ---
TOLERATED CT OF THE CHEST ,WENT DOWN ESCORTED BY 1 RN AND 2 RESPIRATORY THERAPIST .BACK TO PATIENT ROOM .
--- NOTE | 2019-09-07 06:35 | NUR ---
AT 0600, PT WAS TRANSPORTED TO XRAY AND CT SCAN PER MD ORDER. PATIENT WAS TRANSFERRED ON NRB MASK AND GALE WELL. SP02 REMAINED > 92% T/O TRANSPORT. PATIENT PLACED BACK ON HIGH FLOW VIA NC @ PREVIOUS SETTINGS. NO SOB/ NO INCIDENT DURING AND AFTER TRANSPORT.
[2019-09-07] MEDS: LEVOTHYROXINE SODIUM 25 MCG TABLET PO SCH (06:48)
[2019-09-07] MEDS: IPRATROPIUM BROMIDE 0.5 MG/2.5 ML NEBU NEB SCH ×4 (07:07→20:42)
[2019-09-07] MEDS: ALBUTEROL SULFATE 2.5 MG/3 ML NEBU NEB SCH ×4 (07:07→20:42)
[2019-09-07] MEDS: ASCORBIC ACID 500 MG TABLET PEG SCH (08:14)
[2019-09-07] MEDS: levETIRAcetam 500 MG/5 ML LIQUID UDC PEG SCH ×2 (08:14→20:11)
[2019-09-07] MEDS: methylPREDNISolone SOD SUCC 40 MG/ML VIAL IV SCH ×2 (08:14→20:11)
[2019-09-07] MEDS: PANTOPRAZOLE ORAL SUSPENSION 40 MG SUSPDR.PKT GT SCH (08:14)
[2019-09-07] MEDS: MODAFINIL 100 MG TABLET PO SCH (08:14)
[2019-09-07] MEDS: AMIODARONE HCL 200 MG TABLET GT SCH (08:14)
[2019-09-07] MEDS: CLOTRIMAZOLE 1% CREAM 30 GM TUBE TOP SCH ×2 (08:15→17:31)
[2019-09-07] MEDS: Z GUARD REMEDY PASTE 57 GM TUBE TOP SCH ×2 (08:15→20:12)
--- NOTE | 2019-09-07 08:15 | NUR ---
YOGI MCDONALD CERAMIC TILER IN THE UNIT, FULL REPORT GIVEN SEE ORDER HISTORY FOR NEW ORDERS. HARRY DAIGLE AT BEDSIDE ASSESSING PATIENT .
[2019-09-07] MEDS: HYDROCODONE/APAP 5-325MG TABLET PEG PRN ×3 (08:18→20:22)
--- NOTE | 2019-09-07 08:45 | NUR ---
CARDIOLOGY SERVICES DR. MALAVE INT HE UNIT, FULL REPORT GIVEN SEE ORDER HISTORY FOR NEW ORDERS. DR. MALAVE AT BEDSIDE ASSESSING PATIENT.
[2019-09-07] MEDS: GLUCERNA 1.2 1000ML LIQUID GT PRN (10:38)
--- NOTE | 2019-09-07 10:38 | NUR ---
PULMONARY SERVICES DR. FONSECA IN THE UNIT, FULL REPORT GIVEN. DR JUNG TO CLAMP PIGTAIL AND PERFORM A CHEST X RAY Q1HR AFTER CLAMPING. AT BEDSIDE ASSESSING PATIENT. Addendum: 09/07/19 at 1040 by DOROTA العراقي RN DR. ROCHE PULMONARY SERVICES.
--- NOTE | 2019-09-07 14:36 | NUR ---
PAGED DR. ROCHE TO INFORM HIM ON RESULTS OF CHEST XRAY ORDERED, AWAITING FOR TO RETURN CALL.
--- NOTE | 2019-09-07 14:43 | NUR ---
RECEIVED A CALL FROM DR. ROCHE, GAVE FULL REPORT ON CHEST XRAY RESULTS. ORDERS GIVEN TO UNCLAMP THE CHEST TUBE.
--- NOTE | 2019-09-07 17:55 | NUR ---
ONCOLOGY SERVICES DR. GOVEA IN THE UNIT, FULL REPORT GIVEN TO DR. GOVEA SEE ORDER HISTORY FOR NEW ORDERS. DR. GOVEA AT [facility] DISCUSSING PLAN OF CARE WITH PATIENT AND .
--- NOTE | 2019-09-07 19:41 | NUR ---
rounds made patient in bed sleeping ,no respiratory distress noted breathing even unlabored tolerating fi low 02 50% fio2 at 30 liters saturation 100 % rr 20.chest tube in place patent to 20cm low continuous wall suction ,chest tube dressing clean dry and intact, positive bubbling,fluctuating and no air leak, noted small subcutaneous emphysema and crepitus to the right lower neck ,hal area and will continue to monitor . SR on the heart monitor 86. tube feeding in progress and receiving Glucerna 1.2 at 70 ml/hr via the peg .hob up . f/c to bsd .patient open eyes and able to verbalized needs ,otherwise alert only yo name . continue to monitor v/s and levels of comfort .
[2019-09-07] MEDS: TAMSULOSIN HCL 0.4 MG CAP.SR.24H XX SCH (20:11)
[2019-09-07] MEDS: ATORVASTATIN 10 MG TABLET GT SCH (20:11)
--- NOTE | 2019-09-07 20:22 | NUR ---
patient called and verbalized his in pain ,facial grimaces noted and patient seems restless , unable to described pain and unable to say wheres the pain ,nod head to pain . given Garrison for pain prn crushed medication and given via the peg .
[2019-09-07] MEDS: ACETAMINOPHEN 325 MG TABLET PO PRN (23:59)
[2019-09-08] VITALS (23 sets, daily range): BP systolic 93–117; BP diastolic 38–75
--- NOTE | 2019-09-08 | NUR ---
turned and reposition patient ,lotion applied to the back and extremities ,offloaded back with pillows heels off bed , scds used to bilateral lower extremities .
--- NOTE | 2019-09-08 02:30 | NUR ---
sleeping on and off ,v/s wnl ,no respiratory distress no s/s/ of pain .
--- NOTE | 2019-09-08 04:00 | NUR ---
am care done bath patient had moderate amt of loose soft blackish stool .changed soiled linens and gowns . applied z guard to bilateral groin and sacral area .f/c and oral care done ,suction mouth .
[2019-09-08 05:04] LABS: BASOPHILS % (AUTO) 0.2 % (0.0-2.0); HEMATOCRIT 26.4 % (36.7-47.1); HEMOGLOBIN 8.5 g/dL (12.5-16.3); LYMPHOCYTES # (AUTO) 0.1 K/uL (20.0-40.0); MEAN CORPUSCULAR HEMOGLOBIN 32.8 uug (23.8-33.4); MEAN CORPUSCULAR HGB CONC 32 g/dL (32.5-36.3); MEAN CORPUSCULAR VOLUME 101.7 fL (73.0-96.2); MONOCYTES # (AUTO) 0.5 K/uL (2.0-10.0); MONOCYTES % (AUTO) 3.7 % (0.0-11.0); NEUTROPHILS # (AUTO) 12.6 K/uL (1.8-8.9); NEUTROPHILS % (AUTO) 95.1 % (38.5-71.5); PLATELET COUNT (AUTO) 225 K/uL (152-348); WHITE BLOOD COUNT (AUTO) 13.2 K/uL (3.6-10.2)
[2019-09-08 05:06] LABS: CREATININE 0.7 mg/dL (0.6-1.3); POTASSIUM 4.8 mmol/L (3.5-5.1)
--- NOTE | 2019-09-08 05:30 | NUR ---
patient had another bm,moderate in amt ,perineal care done ,changed soiled linens and gowns . right and left arm weeping changed dressing placed Xeroform,4x4 gauze and wrap with Kerlix secure with tape . elevated bue with pillows .soft wrist restraints inplaced for patient safety ,gets confused at times and reaches for the f/c and removing hi flow .
[2019-09-08 06:27] LABS: ABG HCO3 29.6 mmol/L; ABG PCO2 38.8 mmHg (35.0-45.0); ABG PO2 96.9 mmHg (75.0-100.0); ABG SITE RIGHT RADIAL; ABG TOTAL HEMOGLOBIN 9.5 G/dL (13.5-18.0); COHb 1.4 % (0.5-1.5); MetHb 0.4 % (0.0-1.5); O2Hb 95.8 % (94.0-97.0); VENT MODE HF - Aquinox
[2019-09-08] MEDS: LEVOTHYROXINE SODIUM 25 MCG TABLET PO SCH (06:47)
[2019-09-08] MEDS: IPRATROPIUM BROMIDE 0.5 MG/2.5 ML NEBU NEB SCH ×5 (08:17→23:16)
[2019-09-08] MEDS: ALBUTEROL SULFATE 2.5 MG/3 ML NEBU NEB SCH ×5 (08:18→23:16)
[2019-09-08] MEDS: AMIODARONE HCL 200 MG TABLET GT SCH (08:28)
[2019-09-08] MEDS: PANTOPRAZOLE ORAL SUSPENSION 40 MG SUSPDR.PKT GT SCH (08:28)
[2019-09-08] MEDS: methylPREDNISolone SOD SUCC 40 MG/ML VIAL IV SCH ×2 (08:28→20:06)
[2019-09-08] MEDS: levETIRAcetam 500 MG/5 ML LIQUID UDC PEG SCH ×2 (08:28→20:06)
[2019-09-08] MEDS: ASCORBIC ACID 500 MG TABLET PEG SCH (08:28)
[2019-09-08] MEDS: CLOTRIMAZOLE 1% CREAM 30 GM TUBE TOP SCH ×2 (08:29→17:00)
[2019-09-08] MEDS: Z GUARD REMEDY PASTE 57 GM TUBE TOP SCH ×2 (08:29→20:08)
[2019-09-08] MEDS: MODAFINIL 100 MG TABLET PO SCH (08:29)
[2019-09-08] MEDS: HYDROCODONE/APAP 5-325MG TABLET PEG PRN ×2 (08:30→18:35)
--- NOTE | 2019-09-08 08:30 | NUR ---
HOSPITALIST YOGI MCDONALD MULTI CRAFT MAINTENANCE TECHNICIAN IN THE UNIT, FULL REPORT GIVEN, SEE ORDER HISTORY FOR NEW ORDERS. HARRY DAIGLE AT BEDSIDE ASSESSING PATIENT.
[2019-09-08] MEDS: GLUCERNA 1.2 1000ML LIQUID GT PRN (10:13)
--- NOTE | 2019-09-08 10:29 | NUR ---
PULMONARY SERVICES DR. ROCHE IN THE UNIT, FULL REPORT GIVEN TO DR ROCHE, SEE ORDER HISTORY FOR NEW ORDERS. DR ROCHE AT BEDSIDE ASSESSING PATIENT.
[2019-09-08] MEDS: ACETAMINOPHEN 325 MG TABLET PO PRN (13:46)
[2019-09-08] MEDS: TAMSULOSIN HCL 0.4 MG CAP.SR.24H XX SCH (20:06)
[2019-09-08] MEDS: ATORVASTATIN 10 MG TABLET GT SCH (20:06)
[2019-09-09] VITALS (17 sets, daily range): BP systolic 101–136; BP diastolic 53–76
[2019-09-09] MEDS: GLUCERNA 1.2 1000ML LIQUID GT PRN ×2 (02:38→10:30)
--- NOTE | 2019-09-09 04:00 | NUR ---
Noted anterior chest crepitus. Right chest tube remains under 20 cm H2O pleur vac suction.
[2019-09-09 04:53] LABS: BASOPHILS % (AUTO) 0.2 % (0.0-2.0); HEMATOCRIT 29.1 % (36.7-47.1); HEMOGLOBIN 9.4 g/dL (12.5-16.3); LYMPHOCYTES # (AUTO) 0.2 K/uL (20.0-40.0); MEAN CORPUSCULAR HGB CONC 32 g/dL (32.5-36.3); MEAN CORPUSCULAR VOLUME 102.8 fL (73.0-96.2); MONOCYTES # (AUTO) 0.6 K/uL (2.0-10.0); MONOCYTES % (AUTO) 4.1 % (0.0-11.0); NEUTROPHILS # (AUTO) 14.3 K/uL (1.8-8.9); NEUTROPHILS % (AUTO) 94.7 % (38.5-71.5); PLATELET COUNT (AUTO) 195 K/uL (152-348); RED BLOOD CELL COUNT(AUTO) 2.83 MIL/uL (4.06-5.63); WHITE BLOOD COUNT (AUTO) 15.1 K/uL (3.6-10.2)
[2019-09-09] MEDS: LEVOTHYROXINE SODIUM 25 MCG TABLET PO SCH (05:03)
[2019-09-09 05:12] LABS: CREATININE 0.8 mg/dL (0.6-1.3); POTASSIUM 4.5 mmol/L (3.5-5.1)
[2019-09-09] MEDS: HYDROCODONE/APAP 5-325MG TABLET PEG PRN (09:09)
[2019-09-09] MEDS: methylPREDNISolone SOD SUCC 40 MG/ML VIAL IV SCH ×2 (09:09→21:01)
[2019-09-09] MEDS: MODAFINIL 100 MG TABLET PO SCH (09:09)
[2019-09-09] MEDS: ASCORBIC ACID 500 MG TABLET PEG SCH (09:09)
[2019-09-09] MEDS: Z GUARD REMEDY PASTE 57 GM TUBE TOP SCH ×2 (09:10→21:02)
[2019-09-09] MEDS: PANTOPRAZOLE ORAL SUSPENSION 40 MG SUSPDR.PKT GT SCH (09:10)
[2019-09-09] MEDS: AMIODARONE HCL 200 MG TABLET GT SCH (09:10)
[2019-09-09] MEDS: CLOTRIMAZOLE 1% CREAM 30 GM TUBE TOP SCH ×2 (09:10→16:21)
[2019-09-09] MEDS: levETIRAcetam 500 MG/5 ML LIQUID UDC PEG SCH ×2 (09:11→21:01)
[2019-09-09 10:08] LABS: ABG BASE EXCESS 3.6 mmol/L; ABG HCO3 26.5 mmol/L; ABG PCO2 33.7 mmHg (35.0-45.0); ABG PH 7.514 (7.350-7.450); ABG PO2 69.1 mmHg (75.0-100.0); ABG SITE LEFT BRACHIAL; ABG TOTAL HEMOGLOBIN 9.2 G/dL (13.5-18.0); COHb 0.8 % (0.5-1.5); MetHb 0.4 % (0.0-1.5); O2Hb 92.8 % (94.0-97.0); VENT MODE Nasal Cannula
--- NOTE | 2019-09-09 11:00 | NUR ---
ULMONARY SERVICES DR. ROCHE IN THE UNIT, FULL REPORT GIVEN TO DR ROCHE, SEE ORDER HISTORY FOR NEW ORDERS. DR ROCHE AT BEDSIDE ASSESSING PATIENT.
[2019-09-09] MEDS: ALBUTEROL SULFATE 2.5 MG/3 ML NEBU NEB SCH ×3 (11:14→19:39)
[2019-09-09] MEDS: IPRATROPIUM BROMIDE 0.5 MG/2.5 ML NEBU NEB SCH ×3 (11:14→19:38)
--- NOTE | 2019-09-09 19:00 | NUR ---
Patient continues to be on 5L nasal cannula with chest tube connected to suction 20, patient has venegas draining, air mattress inflated, scd's on, no distress noted at this time, Bed in low position, side rails up x2, call light in reach. Continuous pulse ox on, saturating 95%. All news met at this time.
[2019-09-09] MEDS: ATORVASTATIN 10 MG TABLET GT SCH (21:01)
[2019-09-09] MEDS: TAMSULOSIN HCL 0.4 MG CAP.SR.24H XX SCH (21:01)
[2019-09-10 00:05] VITALS: BP 141/70
[2019-09-10 04:05] VITALS: BP 115/60
[2019-09-10] MEDS: HYDROCODONE/APAP 5-325MG TABLET PEG PRN ×2 (04:40→23:51)
[2019-09-10] MEDS: LEVOTHYROXINE SODIUM 25 MCG TABLET PO SCH (06:23)
[2019-09-10 06:50] LABS: CREATININE 0.7 mg/dL (0.6-1.3); POTASSIUM 4.1 mmol/L (3.5-5.1)
--- NOTE | 2019-09-10 07:30 | NUR ---
RECIEVED PT IN BED SLEEPING BUT EASILY AROUSABLE. NO APPARENT DISTRESS NOTED. O2 ON 4L NC, SATURATING AT 100%. HR- SR WITH OCCASSIONAL PAC. ELY SHOSHONE AND SPEECH IS UNCLEAR. AFEBRILE.
[2019-09-10] MEDS: IPRATROPIUM BROMIDE 0.5 MG/2.5 ML NEBU NEB SCH ×4 (07:47→19:45)
[2019-09-10] MEDS: ALBUTEROL SULFATE 2.5 MG/3 ML NEBU NEB SCH ×4 (07:47→19:44)
--- NOTE | 2019-09-10 08:00 | NUR ---
PIGTAIL drain on his right upper lateral side of the chest is intact and connected to a pleurovac at -20cm suction, noted a slight leak , no drain noted.
[2019-09-10 08:03] LABS: BASOPHILS # (AUTO) 0.1 K/uL (0.0-8.0); BASOPHILS % (AUTO) 0.4 % (0.0-2.0); HEMATOCRIT 29.3 % (36.7-47.1); HEMOGLOBIN 9.5 g/dL (12.5-16.3); LYMPHOCYTES # (AUTO) 0.1 K/uL (20.0-40.0); LYMPHOCYTES % (AUTO) 0.9 % (20.5-51.5); MEAN CORPUSCULAR HEMOGLOBIN 33.1 uug (23.8-33.4); MEAN CORPUSCULAR HGB CONC 32 g/dL (32.5-36.3); MONOCYTES # (AUTO) 0.6 K/uL (2.0-10.0); MONOCYTES % (AUTO) 3.4 % (0.0-11.0); NEUTROPHILS # (AUTO) 16.2 K/uL (1.8-8.9); NEUTROPHILS % (AUTO) 95.3 % (38.5-71.5); PLATELET COUNT (AUTO) 179 K/uL (152-348); RED BLOOD CELL COUNT(AUTO) 2.87 MIL/uL (4.06-5.63)
[2019-09-10 08:26] LABS: ABG HCO3 27.6 mmol/L; ABG PCO2 33.4 mmHg (35.0-45.0); ABG PH 7.535 (7.350-7.450); ABG PO2 55.5 mmHg (75.0-100.0); ABG SITE LEFT RADIAL; COHb 0.9 % (0.5-1.5); MetHb 0.2 % (0.0-1.5); O2Hb 88.4 % (94.0-97.0); VENT MODE Nasal Cannula
[2019-09-10] MEDS: PANTOPRAZOLE ORAL SUSPENSION 40 MG SUSPDR.PKT GT SCH (09:43)
[2019-09-10] MEDS: methylPREDNISolone SOD SUCC 40 MG/ML VIAL IV SCH (09:43)
[2019-09-10] MEDS: levETIRAcetam 500 MG/5 ML LIQUID UDC PEG SCH ×2 (09:43→20:31)
[2019-09-10] MEDS: ASCORBIC ACID 500 MG TABLET PEG SCH (09:44)
[2019-09-10] MEDS: MODAFINIL 100 MG TABLET PO SCH (09:44)
[2019-09-10] MEDS: AMIODARONE HCL 200 MG TABLET GT SCH (09:47)
[2019-09-10] MEDS: Z GUARD REMEDY PASTE 57 GM TUBE TOP SCH ×2 (09:49→22:48)
[2019-09-10] MEDS: CLOTRIMAZOLE 1% CREAM 30 GM TUBE TOP SCH ×2 (09:49→18:48)
[2019-09-10 11:45] VITALS: BP 141/73
[2019-09-10] MEDS: GLUCERNA 1.2 1000ML LIQUID GT PRN (12:42)
[2019-09-10 16:59] VITALS: BP 141/73
--- NOTE | 2019-09-10 17:30 | NUR ---
chest xray result showed a small increase in pneumothorax and Abel HIM CLERK is aware of it.
--- NOTE | 2019-09-10 19:20 | NUR ---
Received patient in bed and awake. No distress noted. On 4L O2 via NC saturating @100%, Sinus rhythm with occasional PACs. Speech is unclear but he can speak more clearly when prompted. Asked to be wheeled out into the hallway. Afebrile. Pigtail in the right upper lateral side, clear, pleur-evac working properly with suction @20mmHg.
[2019-09-10] MEDS: ATORVASTATIN 10 MG TABLET GT SCH (20:31)
[2019-09-10] MEDS: TAMSULOSIN HCL 0.4 MG CAP.SR.24H XX SCH (20:31)
[2019-09-10 20:45] VITALS: BP 107/52
[2019-09-11] VITALS (11 sets, daily range): BP systolic 44–127; BP diastolic 24–80
[2019-09-11] MEDS ORDERED: MORPHINE SULFATE 2 MG/1 ML DISP.SYRIN IV ONE (03:00)
[2019-09-11] MEDS ORDERED: MORPHINE SULFATE 4 MG/1 ML DISP.SYRIN IM PRN (03:00)
[2019-09-11] MEDS: MORPHINE SULFATE 4 MG/1 ML DISP.SYRIN IV PRN ×3 (03:17→20:06)
--- NOTE | 2019-09-11 05:32 | NUR ---
Due to low PI and O2 saturation, pt placed back on HFNC @30lpm and 70%. HADLEY stearns.
[2019-09-11 06:07] LABS: ABG BASE EXCESS 6.6 mmol/L; ABG HCO3 28.8 mmol/L; ABG PCO2 32.1 mmHg (35.0-45.0); ABG PO2 144.6 mmHg (75.0-100.0); ABG SITE RIGHT BRACHIAL; COHb 0.9 % (0.5-1.5); MetHb 0.3 % (0.0-1.5); O2Hb 97.7 % (94.0-97.0); VENT MODE HF - Aquinox
[2019-09-11] MEDS: LEVOTHYROXINE SODIUM 25 MCG TABLET PO SCH (06:07)
--- NOTE | 2019-09-11 06:45 | NUR ---
PT PLACED TO HIGH FLOW BECAUSE OF DE SATURATION; ABG THIS AM DONE AND RESULT RELAYED TO OXANA NIELSON. PT ALSO HAS RESIDUAL VIA GT, GTF HELD AND WILL BE RESTARTED BY AM RN
--- NOTE | 2019-09-11 07:30 | NUR ---
Received patient in bed alert, awake, arousable to name.On High-flow vapotherm saturating 95%. Continuous pulse ox moved to left ear lobe. chest tube checked and suction chamber at 10 cm. Added 10 cc of sterile water to reach goal level of 20cm H2O. No acute distress noted. All charting assessments and notes reviewed by Kam Romero RN.
[2019-09-11] MEDS: IPRATROPIUM BROMIDE 0.5 MG/2.5 ML NEBU NEB SCH ×4 (07:38→19:15)
[2019-09-11] MEDS: ALBUTEROL SULFATE 2.5 MG/3 ML NEBU NEB SCH ×4 (07:38→19:15)
[2019-09-11] MEDS ORDERED: predniSONE 20 MG TABLET PO SCH (08:00)
--- NOTE | 2019-09-11 08:00 | NUR ---
Received patient in bed awake, responsive. On 6L O2 saturating 93%, FiO2 30%, trach to mist. Sinus merary on monitor. No distress noted, Addendum: 09/11/19 at 1213 by ANI AHUMADA RN ERROR. ABOVE CHARTING FOR ANOTHER PATIENT.
[2019-09-11 08:41] LABS: CREATININE 0.6 mg/dL (0.6-1.3)
[2019-09-11] MEDS: PANTOPRAZOLE ORAL SUSPENSION 40 MG SUSPDR.PKT GT SCH (08:44)
[2019-09-11] MEDS: MODAFINIL 100 MG TABLET PO SCH (08:44)
[2019-09-11] MEDS: AMIODARONE HCL 200 MG TABLET GT SCH (08:44)
[2019-09-11] MEDS: ASCORBIC ACID 500 MG TABLET PEG SCH (08:44)
[2019-09-11] MEDS: levETIRAcetam 500 MG/5 ML LIQUID UDC PEG SCH (08:45)
[2019-09-11] MEDS: CLOTRIMAZOLE 1% CREAM 30 GM TUBE TOP SCH ×2 (08:46→17:26)
[2019-09-11] MEDS: Z GUARD REMEDY PASTE 57 GM TUBE TOP SCH (08:46)
[2019-09-11 09:39] LABS: BASOPHILS % (AUTO) 0.1 % (0.0-2.0); EOSINOPHILS # (AUTO) 0.1 K/uL (0.0-0.7); MEAN CORPUSCULAR HEMOGLOBIN 33.2 uug (23.8-33.4)
[2019-09-11 10:14] LABS: EOSINOPHILS % (AUTO) 0.4 % (0.0-7.0); HEMATOCRIT 30.8 % (36.7-47.1); LYMPHOCYTES # (AUTO) 0.3 K/uL (20.0-40.0); LYMPHOCYTES % (AUTO) 1.5 % (20.5-51.5); MEAN CORPUSCULAR HGB CONC 32 g/dL (32.5-36.3); MEAN CORPUSCULAR VOLUME 102.7 fL (73.0-96.2); MONOCYTES # (AUTO) 0.4 K/uL (2.0-10.0); MONOCYTES % (AUTO) 2.2 % (0.0-11.0); NEUTROPHILS # (AUTO) 17.7 K/uL (1.8-8.9); NEUTROPHILS % (AUTO) 95.8 % (38.5-71.5); PLATELET COUNT (AUTO) 212 K/uL (152-348); WHITE BLOOD COUNT (AUTO) 18.5 K/uL (3.6-10.2)
[2019-09-11 10:38] LABS: BAND % (MANUAL) 4 % (0-10); LYMPHOCYTES % (MANUAL) 3 % (20-40); MONOCYTES % (MANUAL) 1 % (2-10); MYELOCYTES % 1 % (0-0); NEUTROPHILS % (MANUAL) 91 % (42-75)
[2019-09-11 11:09] LABS: A/G RATIO 0.8 (0.7-1.7); ALBUMIN 1.8 g/dL (2.9-4.4); ALPHA-1-GLOBULIN 0.2 g/dL (0.0-0.4); ALPHA-2-GLOBULIN 0.7 g/dL (0.4-1.0); BETA GLOBULIN 0.8 g/dL (0.7-1.3); GAMMA GLOBULIN 0.5 g/dL (0.4-1.8); GLOBULIN, TOTAL 2.3 g/dL (2.2-3.9); M-SPIKE 0.2 g/dL (Not Observed)
--- NOTE | 2019-09-11 12:14 | NUR ---
Spoke with METAL FINISHER Abel Alexis on the telephone and made aware of pt's repeat CXR results. Call also made to valuation manager awaiting return call.
--- NOTE | 2019-09-11 13:26 | NUR ---
Dr. Pimentel here to see pt. Full report given. New orders received.
--- NOTE | 2019-09-11 19:00 | NUR ---
PATIENT AWAKE, RESPONSIVE TO TACKLE AND PAINFUL STIMULI. PATIENT ON ISOLATION MRSA GT, CHEST TUBE IN PLACE, GT FEEDING ON HOLD AT THIS TIME DUE 30CC RESIDUAL. PATIENT ON CONTINUE HIGH FLOW OXYGEN, RT MADE ROUNDS AND CHECKS PATIENT. CONT TO MONITOR.
--- NOTE | 2019-09-11 20:30 | NUR ---
PATIENT WAS TRANSFERRED TO THE UNIT, IN FAIR CONDITION. GT INTACT, CHEST TUBE ON R SIDE INTACT, R UPPER ARM MIDLINE PATENT. PATIENT WAS GIVEN MORPHINE 2MG IV COMPLAIN OF GEN BODY PAIN, PATIENT AWAKE VERBALLY RESPONSIVE. REPORT GIVEN TO ICU NURSE.
--- NOTE | 2019-09-11 20:33 | NUR ---
Received patient from 3rd floor via bed with RN, DIRECTOR OF SUSTAINABILITY PROGRAMS and RT during transport. To CCU2. Admitted 08/22/19 DX: Sepsis, PNA and Respiratory Failure. Patient is unresponsive to verbal or painful stimuli, with agonal breathing and hypotension. Was medicated with Morphine IV at 2005 prior to transfer. Placed on Trendelenburg position. Patient is DNR/DNI.
--- NOTE | 2019-09-11 20:40 | NUR ---
Remains hypotensive and with agonal breathing.
--- NOTE | 2019-09-11 20:46 | NUR ---
Spoke to patient's Chelsea. Informed of patient's condition Chelsea confirmed DNR/DNI status with 2nd RN Alis. will come and stated she will call patient's son.
--- NOTE | 2019-09-11 20:58 | NUR ---
Dr. Claros notified of patient's condition. No orders.
--- NOTE | 2019-09-11 21:03 | NUR ---
Asystole on the monitor and apneic.
--- NOTE | 2019-09-11 21:08 | NUR ---
Patient is apneic for 5 minutes . Pupils fixed and dilated . No audible heart tones and breath sounds . No palpable pulses and corneal reflexes . Patient is pronounced at 21:08
--- NOTE | 2019-09-11 21:10 | NUR ---
at bedside. Nursing silvering department supervisor notified of patient's expiration.
--- NOTE | 2019-09-11 21:26 | NUR ---
[facility] informed of patient's expiration; spoke to Jewell. CC#[phone]
--- NOTE | 2019-09-11 21:55 | NUR ---
Son here. Chelsea remains at bedside.
--- NOTE | 2019-09-11 22:04 | NUR ---
Dr. Latif notified of patient's expiration.
--- NOTE | 2019-09-11 22:30 | NUR ---
As per patient's they have no mortuary arrangements yet. Nursing leather products supervisor made aware. Process of Release of Remains discussed with and son . Record of signed by Chelsea. Patient has no personal effects or belongings. Tushar from [facility] called; ruled out patient for donation. Post mortem care done. More family visiting.
--- NOTE | 2019-09-11 23:15 | NUR ---
List of mortuaries and Nursing office # given to patient's Chelsea.
--- NOTE | 2019-09-12 | NUR ---
Body to the morgue with proper identification. Chart to nursing hammer shop supervisor.
== END 2019-09-11 23:38 | disposition expired | DRG 871 ==
LOC: ER 01:42 → CCU 04:29 → TELE3 08-24 06:44 → MEDSURG3 08-25 11:05 → TELE-TD3 08-29 11:00 → CCU 08-29 14:01 → TELE-TD3 09-09 17:00 → CCU 09-11 20:30
PROVIDERS: ADMIT Nurse Practitioner Acute Care; ATTEND Nurse Practitioner Acute Care
PROC: 5A09357 Assistance with Respiratory Ventilation, Less than 24 Consecutive Hours, Continuous Positive Airway Pressure (ICD-10-PCS; 2019-08-22)
PROC: 0W9930Z Drainage of Right Pleural Cavity with Drainage Device, Percutaneous Approach (ICD-10-PCS; principal; 2019-08-29)
PROC: 05HA33Z Insertion of Infusion Device into Left Brachial Vein, Percutaneous Approach (ICD-10-PCS; 2019-08-30)
DX: A41.9 Sepsis, unspecified organism (principal); J96.21 Acute and chronic respiratory failure with hypoxia; E43 Unspecified severe protein-calorie malnutrition; J69.0 Pneumonitis due to inhalation of food and vomit; I50.43 Acute on chronic combined systolic (congestive) and diastolic (congestive) heart failure; J93.9 Pneumothorax, unspecified; C71.9 Malignant neoplasm of brain, unspecified; E87.2 Acidosis; D68.59 Other primary thrombophilia; G93.40 Encephalopathy, unspecified; J98.11 Atelectasis; Z66 Do not resuscitate; N40.0 Benign prostatic hyperplasia without lower urinary tract symptoms; R62.7 Adult failure to thrive; Z88.0 Allergy status to penicillin; R13.10 Dysphagia, unspecified; K21.9 Gastro-esophageal reflux disease without esophagitis; K44.9 Diaphragmatic hernia without obstruction or gangrene; Z92.3 Personal history of irradiation; I48.0 Paroxysmal atrial fibrillation; E03.9 Hypothyroidism, unspecified; D63.8 Anemia in other chronic diseases classified elsewhere; G40.909 Epilepsy, unspecified, not intractable, without status epilepticus; G90.8 Other disorders of autonomic nervous system; E11.42 Type 2 diabetes mellitus with diabetic polyneuropathy; E78.5 Hyperlipidemia, unspecified; I25.10 Atherosclerotic heart disease of native coronary artery without angina pectoris; I25.5 Ischemic cardiomyopathy; Z74.09 Other reduced mobility; I70.0 Atherosclerosis of aorta; D47.2 Monoclonal gammopathy; I34.1 Nonrheumatic mitral (valve) prolapse; S22.42XD Multiple fractures of ribs, left side, subsequent encounter for fracture with routine healing; X58.XXXD Exposure to other specified factors, subsequent encounter; J45.909 Unspecified asthma, uncomplicated; D53.9 Nutritional anemia, unspecified; H70.91 Unspecified mastoiditis, right ear; J32.4 Chronic pansinusitis
CPT/HCPCS: 36415; 36600; 70030-TC; 70553; 71045; 71250; 82784; 83550; 83605; 83735; 84100; 84155; 84165; 84443; 84481; 85025; 85730; 86334; 87040; 87070; 87077; 87086; 87400; 93005; 93307; 94640; 94664; A4217; A4663; A9579; C9113; G0378; J0743; J1650; J1940; J2060; J2185; J2270; J2405; J2920; J3370; J3490; J3590; J7030; J7050; J7060; J7512